=== PATIENT | female | born 1935 | race Caucasian/White ===

== ENCOUNTER → 2016-10-12 | Day surgery (SDC) | payer MEDICARE ==
--- NOTE | 2016-10-11 13:58 | CR ---
PREOPERATIVE EVALUATION AND CONSULTATION DATE OF CONSULTATION: 10/05/2016 CONSULTING PHYSICIAN: Dr. Bjorn Castillo SURGEON: Dr. Mary of ophthalmology PLANNED PROCEDURE: Right cataract extraction. CARDIOLOGY EVALUATION: 08/04/[address] Lyles. HISTORY OF PRESENT ILLNESS: A very pleasant 80-year-old patient of mine presents today for followup of multiple medical issues. It is notable the patient did have a pacer for a near syncopal episode previously, but she has generally been doing well since then. This was felt to be vasovagal. She otherwise feels well. Has had no recent issues. Again, did see Dr. Lyles on 08/04/2016 and was told she would be cleared for surgery. She is seeing Hemalatha Ensign for a lesion on her forehead but otherwise does well on her Lipitor. Has not needed her meclizine recently. Has been on Prozac for years and feels it does help with her mood. Was treated with a bisphosphonate for osteoporosis. In general, feels quite well without any new issues or concerns and no other cardiac concerns, pulmonary concerns, risk of obstructive sleep apnea (IVANA), or any issues with anesthesia in the past. PAST MEDICAL HISTORY: Hyperlipidemia. History of constipation. Dysthymia. History of osteoporosis. Osteoarthritis. Gastroesophageal reflux disease (GERD). Benign positional vertigo. Sick sinus syndrome, now with pacer. Neoplasm of large intestine (the patient with prior colectomy) PAST SURGICAL HISTORY: Cataract extraction on the left side by Dr. Mary in September 2012. Tonsils and adenoids removed at age 3. Bilateral tubal ligation. Dilation and curettage (D and C) times three. Breast biopsy, negative. Cholecystectomy. Pacemaker insertion times two March 2013 (entire pacer was changed in her right upper chest). Appendectomy. MEDICATIONS: - Lipitor 10 mg three days a week (unable to tolerate a higher dose) - meclizine 25 mg twice a day as needed dizziness - clobetasol 0.05% twice a day to affected area to avoid atrophy - vitamin D 1000 international units daily - magnesium 500 daily - Align probiotic - Prozac 10 mg daily - atenolol 25 mg 1/2 tablet daily ALLERGIES: ERYTHROMYCIN causes nausea. DEMEROL caused hallucinations. SOCIAL HISTORY: The patient lives with her , Pradeep. 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 She previously had smoked two packs a day for 41 years, quitting in 1992. FAMILY HISTORY: Father of a stroke. Mother of natural causes at age 103 and congestive heart failure (CHF). REVIEW OF SYSTEMS: As per history of present illness (HPI). Otherwise, ten system review is negative. PHYSICAL EXAMINATION: VITAL SIGNS: Initial blood pressure is 152/80, on recheck it was 135/75, pulse of 70, respiratory rate of 18. She is 5 feet 4 inches tall, weight of 141 pounds, body mass index (BMI) of 24. In general, no acute distress. Nontoxic. Alert and oriented times three. Is very pleasant. HEENT: Is grossly within normal limits. Face is symmetric. Oral cavity and oropharynx are benign. Tympanic membranes were evaluated, benign on the right; the left, however, does appear to have old scarring and a patch but no other abnormalities. NECK: Is supple. No lymphadenopathy or thyromegaly. HEART: Regular rate and rhythm. S1, S2. She does have a pacemaker in her right upper chest, left nontender. LUNGS: Clear to auscultation bilaterally. ABDOMEN: Is soft, nontender, nondistended. No organomegaly. EXTREMITIES: No clubbing, cyanosis, or edema. LABORATORIES: On 07/23/2016 were reviewed. Slight anemia. ASSESSMENT AND PLAN: 1. Preoperative evaluation and consultation. At this point in time, this is a relatively low-risk procedure. The patient is doing well overall without any cardiac issues with the exception of a pacer, which appears to be functioning well. She does have a smoking history regarding her respiratory condition but does not appear to have outward symptoms as such. She denies any symptoms of IVANA or issues with anesthesia in the past. We expect she will do quite well and will also forward Dr. Lyles's note from 08/04/2016. 2. Cataract. The patient looks forward to having the right cataract removed. She had good results of the left. 3. Hypercholesterolemia. Doing as well as possible with Lipitor three times a week. Will continue on that. 4. Essential hypertension. The patient's blood pressure improved on a recheck. Will continue to monitor. 5. Type 2 diabetes. Good diet control. Will monitor. 6. Anxiety. Doing well with Prozac alone without any new issues or concerns. Will monitor. 7. Presence of a pacemaker. Doing quite well. Following with Dr. Lyles. 8. Vitamin D deficiency. Doing well on present dose of supplement. 9. Benign positional vertigo. Stable without any medication at this point in time. Does use meclizine as needed. ONGOING CARE: I am going to see her again as scheduled. If she has new problems or issues prior to her visit, she will let us know. ASHKAN
[~2016-10-12] VITALS: Ht 162.6 cm; Wt 63.5 kg
[~2016-10-12] MED LIST: ACETAMINOPHEN 325 MG TAB PO PRN; ATEN25TA OR; ATEN25TA PO; AcetaZOLAMIDE 500 MG ER CAP PO ONE; BSS with VANC/TOB/EPI for EYE CASES IR ONE; CYCLOPENTOLATE 2% OPHTH SOLN OD ONE; FLUO10TA30 PO; HEALON DUET (HEALON 10MG/ML 0.55ML & HEALON ENDOCOAT 30MG/ML 0.85ML) As Ordered ONE; KETOROLAC 0.5% OPHTH SOLN OD ONE; LIDOCAINE 1% SDV 5 ML VIAL As Ordered ONE; LIDOCAINE 4% INJ 5 ML AMP As Ordered ONE; LIDOCAINE 4% INJ 5 ML AMP OU ONE; LIDOCAINE W/EPINEPHRINE 1% 20ML VIAL XX ONE; LISI2.5T3 PO; MAGN250T2 PO; MAGNESIUM PO; MIDAZOLAM INJ 2 MG/2 ML VIAL (J2250) As Ordered ONE; MOXIFLOXACIN IN BSS 0.25MG/0.25ML INTRACAMERAL INJ (OR EYE ONLY)(J2280) As Ordered ONE; MOXIFLOXACIN IN BSS 0.25MG/0.25ML INTRACAMERAL INJ (OR EYE ONLY)(J2280) ICAM SCH; OFLOXACIN 0.3 % (OCUFLOX) OPTH SOL 5ML OD ONE; PHENYLEPHRINE 2.5% OPHTH SOL 2ML OD ONE; POVIDONE-IODINE 5% OPHTH PREP SOL 30ML As Ordered ONE; PREDOPD OD; PROPARACAINE 0.5% OPHTH SOL 15ML OD PRN; PROZ10CA OR; SIMV20TA2 OR; TRIAMCINOLONE PRES FR 40 MG/ML 1ML(TRIESENCE)(OR EYE ONLY)(J3300 PER 1MG) As Ordered ONE; TRIAMCINOLONE PRES FR 40 MG/ML 1ML(TRIESENCE)(OR EYE ONLY)(J3300 PER 1MG) IO ONE; TRIMETHOBENZAMIDE 300 MG CAP PO PRN; TROPICAMIDE 1% OPHTH SOLN 2 ML OD ONE; VIT D3 PO; VITA100066 PO; VITMTA PO; fentaNYL 100 MCG/2 ML INJECTION (J3010) As Ordered ONE
== END | disposition home or self-care (01) ==
LOC: M SDC 06:18
PROVIDERS: ATTEND Ophthalmology
DX: H26.9 Unspecified cataract (principal); I10 Essential (primary) hypertension; E78.5 Hyperlipidemia, unspecified; F34.1 Dysthymic disorder; M15.0 Primary generalized (osteo)arthritis; M81.0 Age-related osteoporosis without current pathological fracture; K21.9 Gastro-esophageal reflux disease without esophagitis; H81.10 Benign paroxysmal vertigo, unspecified ear; I49.5 Sick sinus syndrome; E16.2 Hypoglycemia, unspecified; E78.00 Pure hypercholesterolemia, unspecified; E11.9 Type 2 diabetes mellitus without complications; F41.9 Anxiety disorder, unspecified; E55.9 Vitamin D deficiency, unspecified; Z88.1 Allergy status to other antibiotic agents; Z88.5 Allergy status to narcotic agent; Z91.018 Allergy to other foods; Z79.899 Other long term (current) drug therapy; Z85.038 Personal history of other malignant neoplasm of large intestine; Z98.51 Tubal ligation status; Z95.0 Presence of cardiac pacemaker
CPT/HCPCS: 66984; J2250; J2280; J3010; J3300; V2632

== ENCOUNTER 2016-10-13 10:38 | Observation (INO) | payer MEDICARE ==
[~2016-10-13] VITALS: Ht 162.6 cm; Wt 63.5 kg
[~2016-10-13 10:38] MED LIST changes: -ACETAMINOPHEN 325 MG TAB PO PRN; -ATEN25TA PO; -AcetaZOLAMIDE 500 MG ER CAP PO ONE; -BSS with VANC/TOB/EPI for EYE CASES IR ONE; -CYCLOPENTOLATE 2% OPHTH SOLN OD ONE; -FLUO10TA30 PO; -HEALON DUET (HEALON 10MG/ML 0.55ML & HEALON ENDOCOAT 30MG/ML 0.85ML) As Ordered ONE; -KETOROLAC 0.5% OPHTH SOLN OD ONE; -LIDOCAINE 1% SDV 5 ML VIAL As Ordered ONE; -LIDOCAINE 4% INJ 5 ML AMP As Ordered ONE; -LIDOCAINE 4% INJ 5 ML AMP OU ONE; -LIDOCAINE W/EPINEPHRINE 1% 20ML VIAL XX ONE; -LISI2.5T3 PO; -MAGN250T2 PO; -MIDAZOLAM INJ 2 MG/2 ML VIAL (J2250) As Ordered ONE; -MOXIFLOXACIN IN BSS 0.25MG/0.25ML INTRACAMERAL INJ (OR EYE ONLY)(J2280) As Ordered ONE; -MOXIFLOXACIN IN BSS 0.25MG/0.25ML INTRACAMERAL INJ (OR EYE ONLY)(J2280) ICAM SCH; -OFLOXACIN 0.3 % (OCUFLOX) OPTH SOL 5ML OD ONE; -PHENYLEPHRINE 2.5% OPHTH SOL 2ML OD ONE; -POVIDONE-IODINE 5% OPHTH PREP SOL 30ML As Ordered ONE; -PREDOPD OD; -PROPARACAINE 0.5% OPHTH SOL 15ML OD PRN; -TRIAMCINOLONE PRES FR 40 MG/ML 1ML(TRIESENCE)(OR EYE ONLY)(J3300 PER 1MG) As Ordered ONE; -TRIAMCINOLONE PRES FR 40 MG/ML 1ML(TRIESENCE)(OR EYE ONLY)(J3300 PER 1MG) IO ONE; -TRIMETHOBENZAMIDE 300 MG CAP PO PRN; -TROPICAMIDE 1% OPHTH SOLN 2 ML OD ONE; -VITA100066 PO; -VITMTA PO; -fentaNYL 100 MCG/2 ML INJECTION (J3010) As Ordered ONE
[2016-10-13 11:35] LABS: BASO % 0.3 % (0.0-1.0); EOS # 0.2 K/mm3 (0.0-0.50); EOS % 1.9 % (0.0-3.0); LARGE UNSTAINED CELL # 0.1 K/mm3 (0.0-0.4); LARGE UNSTAINED CELL % 1.3 % (0.0-4.0); LYMPH # 1.4 K/mm3 (1.5-4.5); LYMPH % 16.3 % (24.0-44.0); MEAN CORPUSCULAR HEMOGLOBIN 29.4 pg (27.0-33.0); MEAN CORPUSCULAR HGB CONC 31.3 g/dl (32.0-36.5); MEAN CORPUSCULAR VOLUME 93.7 fl (80.0-96.0); MONO # 0.4 K/mm3 (0.0-0.8); MONO % 4.8 % (0.0-5.0); NEUTROPHILS # 6.6 K/mm3 (1.8-7.7); NEUTROPHILS % 75.5 % (36.0-66.0); PLATELET COUNT, AUTOMATED 254 k/mm3 (150-450); RED CELL DISTRIBUTION WIDTH 12.6 % (11.5-14.5); WHITE BLOOD COUNT 8.8 K/mm3 (4.0-10.0)
[2016-10-13 11:59] LABS: ANION GAP 7 MEQ/L (8-16); BLOOD UREA NITROGEN 18 MG/DL (7-18); CALCIUM LEVEL 8.8 MG/DL (8.8-10.2); CARBON DIOXIDE LEVEL 25 MEQ/L (21-32); CHLORIDE LEVEL 112 MEQ/L (98-107); CREATININE FOR GFR 1.13 MG/DL (0.55-1.02); GLOMERULAR FILTRATION RATE 49.3 (>32); GLUCOSE, FASTING 138 MG/DL (83-110); POTASSIUM SERUM 4.5 MEQ/L (3.5-5.1); SODIUM LEVEL 144 MEQ/L (136-145)
--- NOTE | 2016-10-13 12:26 | REP ---
Chest two views HISTORY: Syncope Comparison: 07/23/2016 A calcified granuloma is present in the left upper lobe. The right lung is clear. The heart is normal in size. The pulmonary vasculature is normal in appearance. The bony structure is intact. IMPRESSION: Old granulomatous disease. Signed by Modesto May MD 10/13/2016 12:17 P
[2016-10-13] MEDS ORDERED: MAGN250T2 PO (13:13)
[2016-10-13] MEDS ORDERED: PREDOPD OD (13:13)
[2016-10-13] MEDS ORDERED: VITA100066 PO (13:13)
[2016-10-13] MEDS ORDERED: ATEN25TA PO (13:13)
[2016-10-13] MEDS ORDERED: FLUO10TA30 PO (13:13)
[2016-10-13] MEDS ORDERED: VITMTA PO (13:13)
[2016-10-13] MEDS ORDERED: NS 1,000 ML IV SCH (13:42)
[2016-10-13] MEDS ORDERED: ONDANSETRON 4MG/2ML VIAL (J2405) IV PRN (13:45)
[2016-10-13] MEDS ORDERED: ACETAMINOPHEN TAB 650MG DOSE (2X325MG) PO PRN (13:45)
--- NOTE | 2016-10-13 13:59 | HPEPDOC ---
Medical History and Physical Date of Admission 10/13/16 History and Physical PRIMARY CARE PROVIDER: ATTENDING: Mekhi Flower MD CHIEF COMPLAINT: Passed out HISTORY OF PRESENT ILLNESS: Is a 80-year-old female past history of sick sinus syndrome status post PPM, she presses, hyperlipidemia, benign positional vertigo, GERD, osteoporosis, history of colon cancer status post colectomy who presents complaining of syncopal episodes. Patient had cataract surgery yesterday and went to her chain maker loom control today for follow-up. She was standing upon which she started having symptoms of lightheadedness and she went down. Patient had a presyncopal episode while sitting down. EMS was called and upon standing the patient, the patient had a syncopal episode. No head trauma. No urinary or fecal condoms. No seizure activity. No tongue trauma. Patient denies any chest pain/redness of breath/palpitations prior or after this episode. Patient states she walks 2 miles daily with no symptoms of dyspnea on exertion or chest pain. Patient follows with Dr. Lyles in the clinic. ED physician had spoken to Dr. Laws who will arrange for interrogation of her seen Donal pacemaker. PAST MEDICAL HISTORY:As per HPI PAST SURGICAL HISTORY: Cataract surgery, tonsillectomy, tubal ligation, breast biopsy, cholecystectomy, PPM, appendectomy SOCIAL HISTORY: History of 2 packs per day 40 years tobacco abuse, quit 1992. Occasional alcohol. No illicit drug use. Retired. FAMILY HISTORY: Father with CVA ALLERGIES: Please see below. REVIEW OF SYSTEMS: HEENT: Denies sore throat/headache CARDIOVASCULAR: Denies chest pain/palpitations RESPIRATORY: No shortness of breath/cough GASTROINTESTINAL: denies nausea/vomiting GENITOURINARY: Denies dysuria/urinary urgency. MUSCULOSKELETAL: Denies myalgias/arthralgias NEUROLOGICAL: Denies any focal weakness Rest of ROS negative. HOME MEDICATIONS: Please see below. PHYSICAL EXAMINATION: Vitals: (see below) General: No acute distress, laying comfortably in bed. HEENT: Moist mucous membranes. Neck: No JVD or lymphadenopathy Cardiac: RRR, No murmurs. Left PPM with no tenderness or redness. Pulm: Clear to auscultation b/l. No wheezing, rhonchi Abd: NT/ND + BS Ext: No edema or cyanosis Neuro: Strength 5/5 BUE and BLE. CN 2-12 intact. F to N intact Negative pronator drift. LABORATORY DATA: See below. IMAGING: CXR 10/13/[address] head pending. MICROBIOLOGY: Please see below. ASSESSMENT/PLAN: Syncope- symptoms consistent with orthostatic hypotension however patient's states with lightheaded upon standing to check vitals at this time. We'll continue with rehydrating patient. Patient states she's had a good appetite. Does not feel dehydrated however she does have dry mucous membranes. We'll hold atenolol. Trend cardiac enzymes. EKG with atrial paced rhythm and nonspecific repolarization abnormality. We'll also obtain echocardiogram. Dr. Laws was called by the ED physician, and he will arrange for interrogation of the [employer] pacemaker. We'll check orthostatics later in the day when patient's rehydrated. GERD- has not required a PPI at home Osteoporosis- patient states she's unaware of this however this is in her medical records. Will need outpatient follow-up. History of colon cancer status post colectomy Recent cataract surgery- we will continue the patient's prednisone drops that were ordered by her chain maker loom control today. We'll also get an eye patch on her right eye. DVT prophylaxis- SCDs. Patient was followed by Dr. Flores starting 10/14/16 at 7 AM. Vital Signs Blood pressure 121/60, heart rate 60, respiratory rate of 16, afebrile, oxygen saturation 96% on room air Laboratory Data Labs 24H Laboratory Tests 2 10/13/16 11:25: Anion Gap 7L, White Blood Count 8.8, Red Blood Count 4.20, Hemoglobin 12.4, Hematocrit 39.4, Mean Corpuscular Volume 93.7, Mean Corpuscular Hemoglobin 29.4 , Mean Corpuscular Hemoglobin Concent 31.3L, Red Cell Distribution Width 12.6, Platelet Count 254, Neutrophils (%) (Auto) 75.5H, Lymphocytes (%) (Auto) 16.3L, Monocytes (%) (Auto) 4.8, Eosinophils (%) (Auto) 1.9, Basophils (%) (Auto) 0.3, Neutrophils # (Auto) 6.6, Lymphocytes # (Auto) 1.4L, Monocytes # (Auto) 0.4, Eosinophils # (Auto) 0.2, Basophils # (Auto) 0.0, Blood Urea Nitrogen 18, Creatinine 1.13H, Sodium Level 144, Potassium Level 4.5, Chloride Level 112H, Carbon Dioxide Level 25, Calcium Level 8.8, Total Creatine Kinase 65, Creatine Kinase MB 1.7, Creatine Kinase MB Relative Index 2.61, Glomerular Filtration Rate 49.3, Large Unclassified Cells # 0.1, Large Unclassified Cells % 1.3, Troponin I < 0.02 CBC/BMP Laboratory Tests 10/13/16 11:25 Calcium Level 8.8, Total Creatine Kinase 65, Red Blood Count 4.20, Mean Corpuscular Volume 93.7, Mean Corpuscular Hemoglobin 29.4, Mean Corpuscular Hemoglobin Concent 31.3 L, Red Cell Distribution Width 12.6, Neutrophils (%) ( Auto) 75.5 H, Lymphocytes (%) (Auto) 16.3 L, Monocytes (%) (Auto) 4.8, Eosinophils (%) (Auto) 1.9, Basophils (%) (Auto) 0.3, Neutrophils # (Auto) 6.6, Lymphocytes # (Auto) 1.4 L, Monocytes # (Auto) 0.4, Eosinophils # (Auto) 0.2, Basophils # (Auto) 0.0 Home Medications Scheduled (Fluoxetine HCl) 10 Mg Tab 10 MG PO DAILY Atenolol (Atenolol) 25 Mg Tab 12.5 MG PO DAILY Cholecalciferol (Vitamin D) 1,000 Unit Tab 1,000 UNIT PO DAILY Magnesium (Magnesium) 250 Mg Tab 250 MG PO DAILY Multivitamins *[facility] STOCKED* (Thera M Plus *[facility] STOCK[facility]*) 1 Tab Tab 1 TAB PO DAILY Prednisolone Acetate (Prednisolone Acetate 1% Opth Susp) 100 Drop/5 Ml Susp 1 DROP OD QID NEW MED FROM EYE APPT - HAS NOT STARTED Allergies Coded Allergies: Mushroom (Verified Allergy, Intermediate, PASSES OUT, 09/19/13) Meperidine (Verified Adverse Reaction, Intermediate, FLOATING FEELING, DELUSIONS, 12/06/12) Erythromycin (Verified Adverse Reaction, Mild, NAUSEA, 10/11/16) MEKHI FLOWER MD Oct 13, 2016 13:59
--- NOTE | 2016-10-13 14:40 | REP ---
CT HEAD WITHOUT CONTRAST: HISTORY: Loss of consciousness. COMPARISON: 07/23/2016. Areas of decreased attentuation are present in the periventricular white matter. This represents small vessel ischemic disease. There is no intraparenchymal hemorrhage, mass, or midline shift. The ventricular system and cortical sulci are dilated consistent with mild volume loss. There is no extracerebral collection. There is no fracture. The visualized sinuses are clear. IMPRESSION: 1. Small vessel ischemic disease. 2. Mild volume loss. Signed by Modesto May MD 10/13/2016 02:48 P
[2016-10-13 16:00] VITALS: BP 177/75
[2016-10-13] MEDS ORDERED: PANTOPRAZOLE 40MG TAB (PROTONIX) As Ordered ONE (18:12)
[2016-10-13] MEDS: prednisoLONE ACET 1% OPHTH SUSP 5ML OD SCH ×2 (18:14→20:08)
[2016-10-13] MEDS: PANTOPRAZOLE 40MG TAB (PROTONIX) PO SCH (18:14)
[2016-10-13 20:00] VITALS: BP_SYST 169; BP_SYST 178; BP_SYST 187; BP_SYST 189; BP_DIAS 73; BP_DIAS 77; BP_DIAS 78; BP_DIAS 79
--- NOTE | 2016-10-13 21:53 | ECGEPIP ---
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
--- NOTE | 2016-10-13 23:42 | EDDOCDS ---
Nurse's Notes [facility] Name: Мария Maki Age: 80 yrs Sex: Female : 1935 Arrival Date: 10/13/2016 Time: 10:38 Bed Admit Hold Private MD: Bjorn Castillo M.D. Diagnosis: Syncope and collapse Presentation: 10/13 10:40 Presenting complaint: Patient states: Per EMS history of syncopal events. + pacer. jmk experienced near syncope today while sitting. LOC upon standing. Without seizure activity. FS 110 en route. denies chest pain or SOB. + diaphoresis. Adult Sepsis Screening: The patient does not have new or worsening altered mentation. Patient's respiratory rate is less than 22. Systolic blood pressure is greater than 100. Patient has a qSOFA score of 0- Negative Sepsis Screen. Suicide/Homicide risk assessment- the patient denies having any suicidal and/or homicidal ideations and does not present with any other emotional, behavioral or mental health complaints. Status: Patient is not a insurance customer service specialist or dependent. Transition of care: patient was not received from another setting of care. 10:40 Acuity: SRAVANTHI Level 3 [facility] 10:40 Method Of Arrival: Ambulance [facility] Triage Assessment: 10:47 General: Appears in no apparent distress. Pain: Denies pain. [facility] Historical: - Allergies: Demerol (confusion); Erythromycin (Vomit); - Home Meds: 1. atenolol 12.5 mg Oral once daily (Last dose: 10/13/2016 08:30) 2. fluoxetine 10 mg Oral cap once daily (Last dose: 10/13/2016 08:30) - PMHx: Anxiety; Cancer, Colon; Hypertension; - PSHx: Pacemaker Insertion; Cholecystectomy; Appendectomy; Tonsillectomy; breast biopsy; Cataract Surgery- Right; - Social history: Smoking status: Patient states was never smoker of tobacco. No barriers to communication noted, The patient speaks fluent Kiswahili. - Family history: No immediate family members are acutely ill. - : The pt / caregiver states he / she is not on anticoagulants. Home medication list is obtained from the patient. - Exposure Risk Screening:: None identified. Screenin:52 Screening information is obtained from the patient. Fall risk: No risks identified. mb9 Assistance ADL's: requires no assistance with activities of daily living. Abuse/DV Screen: The patient / caregiver reports he/she is: not in a situation that causes fear, pain or injury. Nutritional screening: No deficits noted. Advance Directives: There is no active DNR order. home support is adequate. Assessment: 11:02 General: Appears in no apparent distress, Behavior is cooperative. Pain: Denies pain. mcp Neurological: Level of Consciousness is awake, alert, Oriented to person, place, time, Moves all extremities. Speech is normal, Pupils are right eye does not react--just had cataract surgery yesterday. left eye reactive. Cardiovascular: Rhythm is sinus rhythm. Respiratory: Airway is patent Respiratory effort is even, unlabored, Breath sounds are clear bilaterally. Derm: Skin is pink, warm & dry. 11:28 General: Appears in no apparent distress, Behavior is cooperative. Pain: Denies pain. mb9 Neurological: Level of Consciousness is awake, alert, Oriented to person, place, time, Speech is normal, Facial symmetry appears normal, Pupils are pt's right eye does not react. pt reports cataract surgery yesterday. Cardiovascular: Rhythm is sinus rhythm. Respiratory: Airway is patent Breath sounds are clear bilaterally. 12:06 General: Dr Cooney notified that pt was requesting her prednisolone eye drops be mb9 ordered here in the ER. Dr Cooney states, "She's being admitted the hospitalist can order that". pt made aware. . 12:41 Reassessment: Patient appears in no apparent distress at this time. Patient states mb9 feeling better. Adult Sepsis Screening: The patient does not have new or worsening altered mentation. Patient's respiratory rate is less than 22. Systolic blood pressure is greater than 100. Patient has a qSOFA score of 0- Negative Sepsis Screen. General: Appears in no apparent distress, Behavior is fussy. Pain: Denies pain. Respiratory: Airway is patent Respiratory effort is even, unlabored. 13:00 General: Dr Hidalgoed in to see pt at this time. . mb9 13:25 Reassessment: Patient appears in no apparent distress at this time. General: Appears mb9 comfortable, Behavior is appropriate for age, cooperative. Pain: Denies pain. Respiratory: Airway is patent Respiratory effort is even, unlabored. 14:36 Reassessment: Patient appears in no apparent distress at this time. General: Appears in mb9 no apparent distress, comfortable, Behavior is fussy. Pain: Denies pain. Respiratory: Airway is patent Respiratory effort is even, unlabored. 15:23 Reassessment: Patient appears in no apparent distress at this time. General: Appears mb9 comfortable, Behavior is appropriate for age, cooperative. Respiratory: Airway is patent Respiratory effort is even, unlabored. 16:00 General: Report taken from Laci Deluna RN. All further charting will be in [facility].. aa3 23:40 General: Appears in no apparent distress. Neurological: Level of Consciousness is mgs awake, alert, Oriented to person, place, time. Cardiovascular: Capillary refill < 3 seconds. Respiratory: Airway is patent Respiratory effort is even, unlabored. Derm: Skin is pink, warm & dry. Vital Signs: 10:48 Pulse 60; Resp 16; Pulse Ox 96% on R/A; Weight 63.5 kg; Height 5 ft. 4 in. (162.56 cm); jmk 10:49 BP 121 / 60; jmk 11:03 Temp 97.0(O); rs6 12:44 Pulse 60 MON; Pulse Ox 97% ; mb9 12:45 BP 150 / 67 (auto/); mb9 13:15 Pulse 66 MON; Pulse Ox 96% ; mb9 13:15 BP 170 / 73 (auto/); mb9 14:26 Pulse 62 MON; Pulse Ox 96% ; mb9 14:26 BP 169 / 74 (auto/); mb9 14:45 Pulse 62 MON; Pulse Ox 98% ; mb9 14:45 BP 166 / 72 (auto/); mb9 15:15 Pulse 62 MON; Pulse Ox 98% ; mb9 15:15 BP 171 / 72 (auto/); mb9 15:45 Pulse 62 MON; Pulse Ox 95% ; mb9 15:45 BP 177 / 76 (auto/); Pulse 62; Resp 17; Temp 98.2(TE); Pulse Ox 95% on R/A; mb9 10:48 Body Mass Index 24.03 (63.50 kg, 162.56 cm) [facility] Vitals: 10:48 Log In Time N/A - ambulance arrival. [facility] ED Course: 10:39 Patient visited by Yazmin Barry, Repairer Wood Furniture. lbd 10:39 Bjorn Castillo is Private Physician. lbd 10:39 Patient moved to Waiting lbd 10:39 Patient moved to 4 lbd 10:45 Triage Initiated jmk 10:50 Pt greeted and oriented to ED. Patient advised of names of staff involved in care, rs6 location of call basilio, wait times and NPO status. Accompanied by Significant Other, Patient has correct armband on for positive identification. Placed in gown. Bed in low position. Call light in reach. Side rails up X 1. ekg monitor tech on. Pulse ox on. NIBP on. 10:50 EKG done. (by ED staff). Reviewed by Va oConey MD. rs6 10:51 Patient visited by Coreen Ramírez PCA. rs6 11:04 Patient visited by Humera Berrios RN. mcp 11:04 The patient / caregiver is instructed regarding the plan of care and ED course. mcp 11:04 Maintain field IV. Dressing intact. Good blood return noted. Site clean & dry. mcp 11:08 PT had large solid bowel movement in bed mirza. Initially pt was attempting to get up to rs6 bedside commode but became dizzy and stated that she "felt like I am going to faint again, I need to lay back down." PT was placed back in bed and a bedpan was provided. . Assisted with bedpan. 11:10 Patient visited by Coreen Ramírez PCA. rs6 11:20 Va Cooney MD is Attending Physician. br1 11:28 Basic Metabolic Profile Sent. mb9 11:28 CBC with Diff Sent. mb9 11:28 Cardiac Injury Profile Sent. mb9 11:28 Troponin Sent. mb9 11:29 Patient visited by Va Cooney MD. br1 12:41 Patient visited by Va Cooney MD. br1 12:42 Mekhi Leiva is Hospitalizing Provider. br1 12:58 Chest, 2 View (pa\\E\\lat) Returned. EDMS 13:30 Patient visited by Coreen Ramírez PCA. rs6 13:30 Diet: Patient given regular meal. Tolerated well. rs6 13:35 [place] was scanned into [employer] and attached to record. lg 14:15 Patient visited by Coreen Ramírez PCA. rs6 14:17 Patient moved to Admit Hold kpj 15:33 CT Head without contrast Returned. EDMS 15:52 No procedures done that require assistance. mb9 17:16 Patient moved to 20 kp 17:16 Patient moved to Admit Hold [facility] 22:11 EKG-ADULT Returned. EDMS Administered Medications: 11:46 Drug: NS 0.9% 1000 ml [sodium chloride 0.9 % intravenous solution] Route: IV; Rate: 150 mb9 mL/hr; Site: left antecubital; 16:32 Drug: prednisoLONE 1 drps [prednisolone acetate 1 % eye drops,suspension (1 drps)] mb9 Route: Ophthalmic; Site: right eye; Order Results: Lab Order: Basic Metabolic Profile; [facility] 10/13/16 11:25 Test: GLUCOSE, FASTING; Value: 138; Range: 83-110; Abnormal: Above high normal; Units: MG/DL; Status: F Test: BLOOD UREA NITROGEN; Value: 18; Range: 7-18; Units: MG/DL; Status: F Test: CREATININE FOR GFR; Value: 1.13; Range: 0.55-1.02; Abnormal: Above high normal; Units: MG/DL; Status: F Test: GLOMERULAR FILTRATION RATE; Value: 49.3; Range: >32; Status: F Test: SODIUM LEVEL; Value: 144; Range: 136-145; Units: MEQ/L; Status: F Test: POTASSIUM SERUM; Value: 4.5; Range: 3.5-5.1; Units: MEQ/L; Status: F Test: CHLORIDE LEVEL; Value: 112; Range: 98-107; Abnormal: Above high normal; Units: MEQ/L; Status: F Test: CARBON DIOXIDE LEVEL; Value: 25; Range: 21-32; Units: MEQ/L; Status: F Test: ANION GAP; Value: 7; Range: 8-16; Abnormal: Below low normal; Units: MEQ/L; Status: F Test: CALCIUM LEVEL; Value: 8.8; Range: 8.8-10.2; Units: MG/DL; Status: F Test Note: ; Units are mL/min/1.73 m2 Chronic Kidney Disease Staging per NKF: Stage I & II GFR >=60 Normal to Mildly Decreased Stage III GFR 30-59 Moderately Decreased Stage IV GFR 15-29 Severely Decreased Stage V GFR <15 Very Little GFR Left ESRD GFR <15 on REPORTING PROCESS CONSULTANT Lab Order: CBC with Diff; [facility] 10/13/16 11:25 Test: WHITE BLOOD COUNT; Value: 8.8; Range: 4.0-10.0; Units: K/mm3; Status: F Test: RED BLOOD COUNT; Value: 4.20; Range: 4.00-5.40; Units: M/mm3; Status: F Test: HEMOGLOBIN; Value: 12.4; Range: 12.0-16.0; Units: g/dl; Status: F Test: HEMATOCRIT; Value: 39.4; Range: 36.0-47.0; Units: %; Status: F Test: MEAN CORPUSCULAR VOLUME; Value: 93.7; Range: 80.0-96.0; Units: fl; Status: F Test: MEAN CORPUSCULAR HEMOGLOBIN; Value: 29.4; Range: 27.0-33.0; Units: pg; Status: F Test: MEAN CORPUSCULAR HGB CONC; Value: 31.3; Range: 32.0-36.5; Abnormal: Below low normal; Units: g/dl; Status: F Test: RED CELL DISTRIBUTION WIDTH; Value: 12.6; Range: 11.5-14.5; Units: %; Status: F Test: PLATELET COUNT, AUTOMATED; Value: 254; Range: 150-450; Units: k/mm3; Status: F Test: NEUTROPHILS %; Value: 75.5; Range: 36.0-66.0; Abnormal: Above high normal; Units: %; Status: F Test: LYMPH %; Value: 16.3; Range: 24.0-44.0; Abnormal: Below low normal; Units: %; Status: F Test: MONO %; Value: 4.8; Range: 0.0-5.0; Units: %; Status: F Test: EOS %; Value: 1.9; Range: 0.0-3.0; Units: %; Status: F Test: BASO %; Value: 0.3; Range: 0.0-1.0; Units: %; Status: F Test: LARGE UNSTAINED CELL %; Value: 1.3; Range: 0.0-4.0; Units: %; Status: F Test: NEUTROPHILS #; Value: 6.6; Range: 1.8-7.7; Units: K/mm3; Status: F Test: LYMPH #; Value: 1.4; Range: 1.5-4.5; Abnormal: Below low normal; Units: K/mm3; Status: F Test: MONO #; Value: 0.4; Range: 0.0-0.8; Units: K/mm3; Status: F Test: EOS #; Value: 0.2; Range: 0.0-0.50; Units: K/mm3; Status: F Test: BASO #; Value: 0.0; Range: 0.0-0.2; Units: K/mm3; Status: F Test: LARGE UNSTAINED CELL #; Value: 0.1; Range: 0.0-0.4; Units: K/mm3; Status: F Lab Order: Cardiac Injury Profile; [facility] 10/13/16 11:25 Test: CPK CREATINE PHOSPHOKINASE; Value: 65; Range: 26-192; Units: U/L; Status: F Test: CK-MB VALUE MASS; Value: 1.7; Range: 0.0-3.6; Units: NG/ML; Status: F Test: MB/CK RELATIVE INDEX; Value: 2.61; Range: < OR =4; Status: F Test Note: ; DIAGNOSIS CRITERIA MMB ng/ml Relative Index (RI) NON-AMI < or = 5 N/A LANG ZONE > 5 < or = 4 AMI > 5 > 4 Lab Order: Troponin; [facility] 10/13/16 11:25 Test: TROPONIN I; Value: < 0.02; Range: < 0.10; Units: NG/ML; Status: F Test Note: ; Troponin I Reference Interval for [employer] LOCI: 99th Percentile= 0.00-0.045 ng/ml Risk Stratification: <= 0.10 ng/ml Decreased Risk for Adverse Clinical Events. 0.10-1.50 ng/ml Increased Risk for Adverse Clinical Events. Evaluation of additional criterion and/or repeat testing in 2-6 hours is suggested to rule out myocardial damage. >= 1.50 ng/ml Indicative of Myocardial Injury. Lab Order: CARDIAC INJURY PROFILE; [facility] 10/13/16 18:49 Test: CPK CREATINE PHOSPHOKINASE; Value: 58; Range: 26-192; Units: U/L; Status: F Test: CK-MB VALUE MASS; Value: 1.9; Range: 0.0-3.6; Units: NG/ML; Status: F Test: MB/CK RELATIVE INDEX; Value: 3.27; Range: < OR =4; Status: F Test Note: ; DIAGNOSIS CRITERIA MMB ng/ml Relative Index (RI) NON-AMI < or = 5 N/A LANG ZONE > 5 < or = 4 AMI > 5 > 4 Lab Order: TROPONIN; [facility] 10/13/16 18:49 Test: TROPONIN I; Value: < 0.02; Range: < 0.10; Units: NG/ML; Status: F Test Note: ; Troponin I Reference Interval for [employer] LOCI: 99th Percentile= 0.00-0.045 ng/ml Risk Stratification: <= 0.10 ng/ml Decreased Risk for Adverse Clinical Events. 0.10-1.50 ng/ml Increased Risk for Adverse Clinical Events. Evaluation of additional criterion and/or repeat testing in 2-6 hours is suggested to rule out myocardial damage. >= 1.50 ng/ml Indicative of Myocardial Injury. 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 Systems Consultant: rn; : 1935 Requested By: VA Hercules; Order Number: [id number] Reading MD: Inessa Hernandez; Measurements; Intervals Arnold; Rate: 60 P: 199; SD: 204 QRS: 62; QRSD: 82 T: 80; QT: 411; QTc: 411; Interpretive Statements; ELECTRONIC ATRIAL PACEMAKER; ABNORMAL RHYTHM ECG; NSTTW ABNORMALITY; ; Electronically Signed On 10-13-2016 21:53:29 EST by Inessa Hernandez; Radiology Order: Chest, 2 View (pa\\E\\lat) Test: Chest, 2 View (pa\\E\\lat) REASON FOR EXAMINATION: Syncope; Chest two views; ; HISTORY: Syncope; ; Comparison: 07/23/2016; ; A calcified granuloma is present in the left upper lobe. The right lung is; clear. The heart is normal in size. The pulmonary vasculature is normal in; appearance. The bony structure is intact.; ; IMPRESSION: Old granulomatous disease.; ; ; Signed by; Modesto May MD 10/13/2016 12:17 P; Radiology Order: CT Head without contrast Test: CT Head without contrast REASON FOR EXAMINATION: LOC; CT HEAD WITHOUT CONTRAST:; ; HISTORY: Loss of consciousness.; ; COMPARISON: 07/23/2016.; ; Areas of decreased attentuation are present in the periventricular white matter.; This represents small vessel ischemic disease. There is no intraparenchymal; hemorrhage, mass, or midline shift. The ventricular system and cortical sulci; are dilated consistent with mild volume loss. There is no extracerebral; collection. There is no fracture. The visualized sinuses are clear.; ; IMPRESSION:; ; 1. Small vessel ischemic disease.; ; 2. Mild volume loss.; ; ; Signed by; Modesto May MD 10/13/2016 02:48 P; Outcome: 12:42 Decision to Hospitalize by Provider. br1 15:52 Discharge Assessment: Patient awake, alert and oriented x 3. No cognitive and/or mb9 functional deficits noted. Patient verbalized understanding of disposition instructions. patient administered narcotics - no. The following High Risk Discharge criteria are identified: None. Admitted to PCU accompanied by nurse, accompanied by tech. Condition: good Condition: stable Condition: improved. CT Study completed. Property :Personal belongings accompany Pt. 23:42 Patient left the ED. s Signatures: Dispatcher [employer] EDMS Yazmin Barry, Repairer Wood Furniture Unit lbd Deborah Elmore RN Tom Hardy,RN RN Humera Delgado, RN Isa Stovall mcp, Michael Reg lg Va Cooney MD MD br1 Aleshia Gray RN RN aa3 Main Patiño RN RN mgs Belles, Michael, RN RN mb9 Coreen Ramírez, JACOB OUTSIDE SALES ENGINEER rs6 MTDD
--- NOTE | 2016-10-13 23:42 | EDDOCDS ---
Physician Documentation [facility] Name: Althea Queen Age: 80 yrs Sex: Female : 1935 Arrival Date: 10/13/2016 Time: 10:38 Bed Admit Hold Private MD: Bjorn Castillo M.D. Disposition: 10/13/16 12:42 Hospitalization ordered by Mekhi Leiva for Inpatient Admission. Preliminary diagnosis is Syncope and collapse. - Bed requested for PCU. - Status is Inpatient Admission. mgs - Condition is Stable. - Problem is new. - Symptoms are unchanged. Historical: - Allergies: Demerol (confusion); Erythromycin (Vomit); - Home Meds: 1. atenolol 12.5 mg Oral once daily (Last dose: 10/13/2016 08:30) 2. fluoxetine 10 mg Oral cap once daily (Last dose: 10/13/2016 08:30) - PMHx: Anxiety; Cancer, Colon; Hypertension; - PSHx: Pacemaker Insertion; Cholecystectomy; Appendectomy; Tonsillectomy; breast biopsy; Cataract Surgery- Right; - Social history: Smoking status: Patient states was never smoker of tobacco. No barriers to communication noted, The patient speaks fluent Algerian. - Family history: No immediate family members are acutely ill. - : The pt / caregiver states he / she is not on anticoagulants. Home medication list is obtained from the patient. - Exposure Risk Screening:: None identified. Vital Signs: 10/13 10:48 Pulse 60; Resp 16; Pulse Ox 96% on R/A; Weight 63.5 kg / 139.99 lbs; Height 5 ft. 4 in. jmk (162.56 cm); 10:49 BP 121 / 60; jmk 11:03 Temp 97.0(O); rs6 12:44 Pulse 60 MON; Pulse Ox 97% ; mb9 12:45 BP 150 / 67 (auto/); mb9 13:15 Pulse 66 MON; Pulse Ox 96% ; mb9 13:15 BP 170 / 73 (auto/); mb9 14:26 Pulse 62 MON; Pulse Ox 96% ; mb9 14:26 BP 169 / 74 (auto/); mb9 14:45 Pulse 62 MON; Pulse Ox 98% ; mb9 14:45 BP 166 / 72 (auto/); mb9 15:15 Pulse 62 MON; Pulse Ox 98% ; mb9 15:15 BP 171 / 72 (auto/); mb9 15:45 Pulse 62 MON; Pulse Ox 95% ; mb9 15:45 BP 177 / 76 (auto/); Pulse 62; Resp 17; Temp 98.2(TE); Pulse Ox 95% on R/A; mb9 10:48 Body Mass Index 24.03 (63.50 kg, 162.56 cm) tray MDM: 10:44 ECG WITH READING ER PHYS+CARDIAG ordered. EDMS 10:46 Packaging Tech/Pulse Ox/q 30 min VS ordered. br1 10:46 IV Saline Lock ordered. br1 10:46 Rhythm Strip to chart ordered. br1 10:46 Undress patient appropriately for examination ordered. br1 10:47 Basic Metabolic Profile Ordered. EDMS 10:47 CBC with Diff Ordered. EDMS 10:47 Cardiac Injury Profile Ordered. EDMS 10:47 Troponin Ordered. EDMS 11:30 NS 0.9% 1000 ml IV at 150 mL/hr continuous ordered. br1 11:31 Chest, 2 View (pa\E\lat) Ordered. EDMS 11:57 CBC with Diff Reviewed. br1 12:25 Financial registration complete. lg 12:33 Basic Metabolic Profile Reviewed. br1 12:33 Cardiac Injury Profile Reviewed. br1 12:33 Troponin Reviewed. br1 12:48 BED REQUEST+ADM ordered. EDMS 13:35 [facility] Payment Agreement was scanned into [employer] and attached to record. lg 13:47 CARDIAC INJURY PROFILE Ordered. EDMS 13:47 TROPONIN Ordered. EDMS 13:49 Admission / Observation Status ordered. EDMS 13:50 ECHOCARD,DOPPLER/COLOR FLOW ordered. EDMS 13:52 CT Head without contrast Ordered. EDMS 16:32 prednisoLONE Drops 1 % 1 drps Ophthalmic once; shake well before using. to right eye. mb9 ordered. 17:36 REGULAR DIET ordered. EDMS 19:31 CARDIAC INJURY PROFILE Ordered. EDMS 19:31 CARDIAC INJURY PROFILE Ordered. EDMS 19:32 TROPONIN Ordered. EDMS 19:32 COMPLETE BLOOD COUNT Ordered. EDMS 19:32 BASIC METABOLIC PROFILE Ordered. EDMS 19:32 MAGNESIUM LEVEL Ordered. EDMS 20:19 ELECTROCARDIOGRAM ADULT ordered. EDMS Administered Medications: 11:46 Drug: NS 0.9% 1000 ml [sodium chloride 0.9 % intravenous solution] Route: IV; Rate: 150 mb9 mL/hr; Site: left antecubital; 16:32 Drug: prednisoLONE 1 drps [prednisolone acetate 1 % eye drops,suspension (1 drps)] mb9 Route: Ophthalmic; Site: right eye; Signatures: Dispatcher [employer] EDMS Deborah Elmore RN RN Tom JoseRN RN Isa Villatoro, Reg Reg lg Kulwant Cooney MD MD br1 Main Patiño RN RN Talib Ruby RN RN mb9 The chart was reviewed and I authenticate all verbal orders and agree with the evaluation and treatment provided.Corrections: (The following items were deleted from the chart) 15:50 10:46 Orthostatic VS ordered. br1 mb9 17:35 13:47 REGULAR DIET ordered. EDMS EDMS Attachments: 13:35 [facility] Payment Agreement lg MTDD
[2016-10-13 23:55] VITALS: BP 180/80
[2016-10-14 00:01] VITALS: BP 158/62
[2016-10-14] MEDS ORDERED: SLF 3 ML SYR IV PRN (00:45)
[2016-10-14 03:23] LABS: MEAN CORPUSCULAR HGB CONC 31.6 g/dl (32.0-36.5); MEAN CORPUSCULAR VOLUME 91.9 fl (80.0-96.0); RED CELL DISTRIBUTION WIDTH 12.7 % (11.5-14.5); WHITE BLOOD COUNT 8.4 K/mm3 (4.0-10.0)
[2016-10-14 03:51] LABS: ANION GAP 8 MEQ/L (8-16); BLOOD UREA NITROGEN 26 MG/DL (7-18); CALCIUM LEVEL 8.5 MG/DL (8.8-10.2); CARBON DIOXIDE LEVEL 24 MEQ/L (21-32); CHLORIDE LEVEL 114 MEQ/L (98-107); CREATININE FOR GFR 0.94 MG/DL (0.55-1.02); GLOMERULAR FILTRATION RATE > 60.0 (>32); GLUCOSE, FASTING 127 MG/DL (83-110); POTASSIUM SERUM 4.1 MEQ/L (3.5-5.1); SODIUM LEVEL 146 MEQ/L (136-145)
[2016-10-14 05:05] VITALS: BP_SYST 159; BP_SYST 164; BP_SYST 181; BP_DIAS 66; BP_DIAS 71; BP_DIAS 78
[2016-10-14] MEDS ORDERED: SLF 3 ML SYR IV SCH (06:00)
--- NOTE | 2016-10-14 07:27 | ECGEPIP ---
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
[2016-10-14 08:00] VITALS: BP 140/58
--- NOTE | 2016-10-14 08:14 | IPN ---
DATE: 10/14/2016 Mrs. Queen had an uneventful night. She feels good and would like to go home. She denies any chest pain or shortness of breath. Vital Signs: Blood pressure is somewhat dropping with orthostatic maneuvers. It was 181/78 when lying flat, 159/71 sitting and 164/66 standing. Saturation is 99% on room air. Her heart rate is in the 60s and 70s and she is afebrile. She is alert and oriented and appropriate. Her jugular venous pulse (JVP) is not elevated. Lungs are clear. Heart exam reveals a regular rhythm. I do not appreciate any gallop. There is a murmur approximately 1-2/6 systolic, best heard from the sternum. Abdomen is soft, nontender. No peripheral edema. Laboratory-[place], basic metabolic panel reveals sodium 146, potassium 4.1, BUN 26 , creatinine 0.9, and glucose 127. She has three sets of negative cardiac enzymes and CBC is normal but for hemoglobin marginally low at 11.7. ECG this morning reveals sinus rhythm and is normal. I interrogated her pacemaker this morning and it reveals perfectly normal function. There were no arrhythmias recorded ASSESSMENT/PLAN: Mrs. Queen is an 80-year-old female who biologically though appears much younger. She has a history of sick sinus syndrome for which she has a pacemaker, but she also has recurrent episodes of syncope that it is almost certainly neurocardiogenic. She had yet another episode yesterday. The story sounds classic. 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 She started feeling hot, nauseated and diaphoretic and managed to sit down. Her symptoms though persisted so the ambulance was called. Upon their arrival when they tried to stand her up, she actually truly lost consciousness. She has had numerous episodes of this kind over the years and with always identical scenario. I do not believe that we will prevent further episodes. I encouraged again the patient to maintain well hydrated and if she should have a prodromal symptom then she absolutely has to sit down or even better lay down and not stand up until her symptoms are completely clear. Numerous attempts in the past to introduce different medications were not successful in mitigating her symptoms. Otherwise, she is hypertensive. I believe that we can give her a small dose of VALENTE inhibitor in order to help her blood pressure, but I would go very gingerly. From my perspective, she can be discharged home and I will arrange for followup within next few weeks. ASHKAN
[2016-10-14] MEDS ORDERED: LISI2.5T3 PO (08:25)
[2016-10-14] MEDS ORDERED: ENTER DRUG NAME HERE (PATIENT'S OWN MED) PO SCH (09:00)
[2016-10-14] MEDS ORDERED: MULTIVITAMINS/MINERALS THERAP 1 TAB PO SCH (09:00)
[2016-10-14] MEDS ORDERED: VITAMIN D 1,000 INTERNATIONAL UNITS TABLET PO SCH (09:00)
[2016-10-14] MEDS ORDERED: FLUoxetine 10 MG CAP PO SCH (09:00)
[2016-10-14] MEDS: PANTOPRAZOLE 40MG TAB (PROTONIX) PO SCH (09:37)
[2016-10-14] MEDS: prednisoLONE ACET 1% OPHTH SUSP 5ML OD SCH (09:40)
--- NOTE | 2016-10-14 11:32 | DSES ---
DATE OF ADMISSION: 10/13/2016 DATE OF DISCHARGE: 10/14/2016 DISCHARGE DIAGNOSIS: Vasovagal syncope. SECONDARY DIAGNOSES: 1. Sick sinus syndrome status post permanent pacemaker placement. 2. Dyslipidemia. 3. Benign paroxysmal positional vertigo. 4. Gastroesophageal reflux disease. 5. Osteoporosis. 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 She sat down, emergency medical services (EMS) was called, and she was still not feeling well, but they attempted to stand her up and the patient collapsed. The patient has had numerous episodes of this throughout her life. She follows with Dr. Lyles of cardiology regarding her history of syncope. He has done an extensive workup on her and tried multiple medications. He feels as though this is vasovagal syncope, neurocardiogenic in nature. The patient was seen in consultation by Dr. Lyles who interrogated her pacemaker device this morning and found no abnormalities to it. At this time, the patient's symptoms have completely resolved and she is back to her baseline. SUBJECTIVE: The patient reports she feels great and she wants to go home. She has no complaints. OBJECTIVE: VITAL SIGNS: Temperature 96.7, pulse 82, respiratory rate 18, blood pressure 140/58, oxygen saturation 100% on room air. GENERAL: She is a very pleasant, elderly, female, sitting up in bed, in no distress. HEENT: Cranial nerves II-XII are grossly intact. She has moist mucous membranes. No elevation in central venous pressure (CVP). CARDIOVASCULAR EXAM: S1, S2, regular. RESPIRATORY EXAM: Clear. ABDOMINAL EXAM: Benign. EXTREMITIES: No clubbing, cyanosis, or edema. She has 5/5 strength in all four extremities. NEUROLOGICAL EXAM: Nonfocal. LABORATORY STUDIES: WBC 8.4, hemoglobin 11.7, platelet count 250. Chemistry panel: Sodium 146, potassium 4.1, chloride 114, bicarbonate 24, BUN 26, creatinine 0.9. She had three sets of cardiac enzymes which are negative. She did have a CT scan of her head which reveals small vessel ischemic disease and mild volume loss. She also had a chest xray which revealed old granulomatous disease. ASSESSMENT AND PLAN: This is an 80-year-old female with neurocardiogenic syncope. 1. Neurocardiogenic vasovagal syncope. The patient has a history of sick sinus syndrome and a long history of recurrent episodes of syncope. She follows with Dr. Lyles regarding these, he has seen her this morning. Her signs and symptoms do appear to be quite classic for vasovagal syncope. Her device has been interrogated without event. Dr. Lyles and I have both advised her that should she have any other prodromal symptoms she should lay down until her symptoms have completely resolved. She has attempted numerous medications in the past without successful mitigation of her symptoms. The patient was mildly hypertensive, we are restarting her atenolol upon discharge, but also starting 2.5 mg of lisinopril. She will followup with Dr. Lyles in the near future, he can consider further titration of this medication. 2. Osteoporosis. The patient is on vitamin D. 3. Depression. The patient is on Prozac. 4. Postoperative cataract surgery. The patient is continued on Pred Forte. DISPOSITION: The patient is being discharged home to the care of her family. She is at her clinical baseline. She should followup with her primary care provider (PCP) in [address] Lyles within 7 days. Her activity and diet are as prior to admission. She is to return to the emergency room (ER) if her symptoms worsen. MEDICATIONS AT THE TIME OF DISCHARGE: - lisinopril 2.5 mg daily - atenolol 12.5 mg daily - vitamin D 1000 units daily - fluoxetine 10 mg daily - magnesium 250 mg daily - multivitamin one tablet daily - Pred Forte 1% opthalmic solution one drop right eye four times daily Greater than 30 minutes spent organizing disposition.
--- NOTE | 2016-10-14 20:41 | CR ---
DATE OF CONSULTATION: 10/13/2016 REASON FOR CONSULTATION: Syncope/near syncope. PRIMARY PROVIDER: Dr. Bjorn Castillo PRIMARY SOLE SKIVER: Dr. Catherine Lyles HISTORY OF PRESENT ILLNESS: An 80-year-old woman, well known by the office, with a history of syncope and near syncope, for which a permanent pacemaker was implanted initially in 2005, and the battery was replaced in 2012. She has been doing well, she stated, in the past 3 years without any episodes of near syncope. The last time she was admitted here for the same problem, I believe I had seen her. Yesterday, she had cataract extraction, and this morning she went to see her information assistant at the eye center, and after checking up and while waiting to get an appointment, she suddenly felt flushed and was sweaty. She managed to go to a seat and join her . After sitting down, she tried to get up. According to the , she was limp and fell back on the chair. There was no associated chest pain, palpitations, loss of sphincter control, or tonic/clonic movements. She was brought down the emergency room (ER) for further evaluation, and upon arrival her vital signs revealed a blood pressure of 121/60 with a pulse of 60, respirations 16, and her maximum temperature was 97 degrees Fahrenheit with an oxygen saturation of 96% on room air. Her weight was 63.5 kg, and she is 5 feet 4 inches. She was admitted for observation, and cardiology consultation was called. When I saw Mrs. Althea Queen, in the ER, she was supine in bed in no acute distress at rest. She has not been walking and out of bed much, but she managed to get up once today since in the hospital, and she stated that she felt fine. She is now waiting for a bed to go to progressive care unit (PCU). As mentioned above, she denies any associated chest pain or shortness of breath or palpitations with her episode of syncope and near syncope. She denies any nausea , vomiting, diarrhea, melena, or hematemesis. She has no fever. This morning she did have breakfast before going to her clinic at the urgent care center. There is no dysuria, polyuria, hematuria. There is no focal manifestation. She has a past medical history, as mentioned above, positive for syncope and near syncope, hypertension, anxiety/depression, sick sinus syndrome, and permanent pacemaker implantation. There is no known history of coronary artery disease, diabetes mellitus, significant valvular heart disease, atrial fibrillation, cardiomyopathy, cerebrovascular accident (CVA), sudden cardiac . There is no history of thyroid disease, liver disease, kidney disease, lung disease. PAST SURGICAL HISTORY: Positive for dual-chamber permanent pacemaker implantation in August 2006, and in March 2013 she had a new generator. She also had appendectomy, tonsillectomy, and breast biopsy. Her last surgery was yesterday, right cataract extraction. FAMILY HISTORY: Noncontributory. MEDICATIONS: Prior to coming to the hospital: - atenolol 12.5 mg by mouth daily - fluoxetine 10 mg by mouth daily - Claritin as needed for allergies - Slow-Mag/calcium carbonate one tablet by mouth daily - vitamin D one tablet by mouth daily - multivitamin one tablet by mouth daily SOCIAL HISTORY: Patient lives with her , and there is no reported smoking or EtOH (ethanol) abuse. ALLERGIES: She has allergies to mushrooms, MEPERIDINE, and ERYTHROMYCIN. PHYSICAL EXAMINATION: Patient is alert and oriented in no acute distress at rest. Her last vital signs when I was at bedside revealed a blood pressure of 169 mm of mercury, and prior to that around 4 p.m, her vital signs revealed a b of 177/75 with a pulse of 62, respirations 16, and her temperature was 98.2 degree Fahrenheit with an oxygen saturation of 99% on room air. HEAD, EYES, EARS, NOSE, AND THROAT: Atraumatic. NECK: Supple. No jugular venous distention (JVD) or carotid bruits. LUNGS: Clear bilaterally on auscultation and percutaneous without any wheezing or crackles. HEART: Revealed normal S1, S2 without gallops. The point of maximal impulse (PMI ) is not displaced. There is no rub. I could not appreciate any murmurs. ABDOMEN: Soft and nontender. Bowel sounds are active. EXTREMITIES: Revealed no pedal edema. NEUROLOGIC: Negative for focal deficit. LABORATORY DATA: CBC on 10/13/2016 revealed WBC of 8.8, hemoglobin 12.4, hematocrit 39.4, and platelets 254,000. BMP revealed a sodium of 144, potassium 4.5, chloride 112, CO2 of 25, BUN 18, creatinine 1.13, GFR 49.3, and fasting glucose 138. Serum troponin was less than 0.02 times two. Chest x-ray was reviewed, and there is no manifestation of heart failure or pleural effusion. No cardiomegaly. Head CT on 10/13/2016 revealed small-vessel ischemic disease and mild volume loss. Otherwise unremarkable. Electrocardiogram revealed electronic atrial pacemaker activity at 60 beats per minute and minimal repolarization abnormality noted in the inferolateral leads; otherwise unremarkable. There are some ST-T abnormalities noted in V1 and V2 that do not seem to be recent in last echocardiogram done at the office. This also was compared with an old electrocardiogram done here on 07/23/2016, and it was not there. IMPRESSION: This seems to be ariane vu again in this 80-year-old woman with a history of syncope or near syncope, for which a permanent pacemaker was implanted initially in 2005, and the battery was replaced in 2012, hypertension, and anxiety/depression. This seems to be vasovagal in nature. She has been asymptomatic since being in the hospital. She has been confined to the bed, and she can ambulate initially with the help of the nurse under supervision. If she remains asymptomatic, we can discontinue the bedrest. Her labs so far have been benign. Her EKG revealed some nonspecific ST-T abnormalities noted in V1 and V2, and it will be repeated. Her blood pressure is running high, and she is at this present time on normal saline at 125 mL an hour, and it could be discontinued. She has been eating and without any gastrointestinal (GI) symptoms. Tomorrow morning her pacemaker will be checked, and further workup can be done as outpatient if she remains asymptomatic. She is now waiting for a bed in PCU, and she is on telemetry, and there have not been any arrhythmias. Orthostatic was not checked upon arrival in the ER, and will be checked. It probably will be normal, because she has been on intravenous (IV) fluids. It was a pleasure to participate in the care of Mrs. Althea Queen for her underlying cardiac condition. I will continue to monitor along with you while in the hospital. At the present time, she appears to be stable. Please do not hesitate to call with any questions. ASHKAN
--- NOTE | 2016-10-16 00:42 | EDDOCDS ---
Physician Documentation [facility] Name: Althea Queen Age: 80 yrs Sex: Female : 1935 Arrival Date: 10/13/2016 Time: 10:38 Bed Admit Hold Private MD: Bjorn Castillo M.D. Disposition: 10/13/16 12:42 Hospitalization ordered by Mekhi Leiva for Inpatient Admission. Preliminary diagnosis is Syncope and collapse. - Bed requested for PCU. - Status is Inpatient Admission. mgs - Condition is Stable. - Problem is new. - Symptoms are unchanged. Historical: - Allergies: Demerol (confusion); Erythromycin (Vomit); - Home Meds: 1. atenolol 12.5 mg Oral once daily (Last dose: 10/13/2016 08:30) 2. fluoxetine 10 mg Oral cap once daily (Last dose: 10/13/2016 08:30) - PMHx: Anxiety; Cancer, Colon; Hypertension; - PSHx: Pacemaker Insertion; Cholecystectomy; Appendectomy; Tonsillectomy; breast biopsy; Cataract Surgery- Right; - Social history: Smoking status: Patient states was never smoker of tobacco. No barriers to communication noted, The patient speaks fluent Yemeni. - Family history: No immediate family members are acutely ill. - : The pt / caregiver states he / she is not on anticoagulants. Home medication list is obtained from the patient. - Exposure Risk Screening:: None identified. Vital Signs: 10/13 10:48 Pulse 60; Resp 16; Pulse Ox 96% on R/A; Weight 63.5 kg / 139.99 lbs; Height 5 ft. 4 in. jmk (162.56 cm); 10:49 BP 121 / 60; jmk 11:03 Temp 97.0(O); rs6 12:44 Pulse 60 MON; Pulse Ox 97% ; mb9 12:45 BP 150 / 67 (auto/); mb9 13:15 Pulse 66 MON; Pulse Ox 96% ; mb9 13:15 BP 170 / 73 (auto/); mb9 14:26 Pulse 62 MON; Pulse Ox 96% ; mb9 14:26 BP 169 / 74 (auto/); mb9 14:45 Pulse 62 MON; Pulse Ox 98% ; mb9 14:45 BP 166 / 72 (auto/); mb9 15:15 Pulse 62 MON; Pulse Ox 98% ; mb9 15:15 BP 171 / 72 (auto/); mb9 15:45 Pulse 62 MON; Pulse Ox 95% ; mb9 15:45 BP 177 / 76 (auto/); Pulse 62; Resp 17; Temp 98.2(TE); Pulse Ox 95% on R/A; mb9 10:48 Body Mass Index 24.03 (63.50 kg, 162.56 cm) tray MDM: 10:44 ECG WITH READING ER PHYS+CARDIAG ordered. EDMS 10:46 Tearoom Host/Hostess/Pulse Ox/q 30 min VS ordered. br1 10:46 IV Saline Lock ordered. br1 10:46 Rhythm Strip to chart ordered. br1 10:46 Undress patient appropriately for examination ordered. br1 10:47 Basic Metabolic Profile Ordered. EDMS 10:47 CBC with Diff Ordered. EDMS 10:47 Cardiac Injury Profile Ordered. EDMS 10:47 Troponin Ordered. EDMS 11:30 NS 0.9% 1000 ml IV at 150 mL/hr continuous ordered. br1 11:31 Chest, 2 View (pa\E\lat) Ordered. EDMS 11:57 CBC with Diff Reviewed. br1 12:25 Financial registration complete. lg 12:33 Basic Metabolic Profile Reviewed. br1 12:33 Cardiac Injury Profile Reviewed. br1 12:33 Troponin Reviewed. br1 12:48 BED REQUEST+ADM ordered. EDMS 13:35 [facility] Payment Agreement was scanned into [employer] and attached to record. lg 13:47 CARDIAC INJURY PROFILE Ordered. EDMS 13:47 TROPONIN Ordered. EDMS 13:49 Admission / Observation Status ordered. EDMS 13:50 ECHOCARD,DOPPLER/COLOR FLOW ordered. EDMS 13:52 CT Head without contrast Ordered. EDMS 16:32 prednisoLONE Drops 1 % 1 drps Ophthalmic once; shake well before using. to right eye. mb9 ordered. 17:36 REGULAR DIET ordered. EDMS 19:31 CARDIAC INJURY PROFILE Ordered. EDMS 19:31 CARDIAC INJURY PROFILE Ordered. EDMS 19:32 TROPONIN Ordered. EDMS 19:32 COMPLETE BLOOD COUNT Ordered. EDMS 19:32 BASIC METABOLIC PROFILE Ordered. EDMS 19:32 MAGNESIUM LEVEL Ordered. EDMS 20:19 ELECTROCARDIOGRAM ADULT ordered. EDMS 10/14 10:56 T-Sheet-- Draft Copy was scanned into [employer] and attached to record. gb 10:56 ECG/EKG was scanned into [employer] and attached to record. gb 10:57 Rhythm Strip was scanned into [employer] and attached to record. gb 10:57 Radiology Report was scanned into [employer] and attached to record. gb Administered Medications: 10/13 11:46 Drug: NS 0.9% 1000 ml [sodium chloride 0.9 % intravenous solution] Route: IV; Rate: 150 mb9 mL/hr; Site: left antecubital; 16:32 Drug: prednisoLONE 1 drps [prednisolone acetate 1 % eye drops,suspension (1 drps)] mb9 Route: Ophthalmic; Site: right eye; Signatures: Dispatcher [employer] EDMS Deborah Elmore RN RN Tom Jose,RN RN Yadi Stapleton, Reg Reg gb Isa Dick, Reg Reg lg Kulwant Cooney MD MD br1 Main Patiño RN RN Talib RubyRN RN mb9 The chart was reviewed and I authenticate all verbal orders and agree with the evaluation and treatment provided.Corrections: (The following items were deleted from the chart) 15:50 10:46 Orthostatic VS ordered. br1 mb9 17:35 13:47 REGULAR DIET ordered. EDMS EDMS Attachments: 13:35 [facility] Payment Agreement lg 10/14 10:56 T-Sheet-- Draft Copy gb 10:56 ECG/EKG gb Chart Complete MTDD
--- NOTE | 2016-10-16 00:43 | EDDOCDS ---
Physician Documentation [facility] Name: Althea Queen Age: 80 yrs Sex: Female : 1935 Arrival Date: 10/13/2016 Time: 10:38 Bed Admit Hold Private MD: Bjonr Castillo M.D. Disposition: 10/13/16 12:42 Hospitalization ordered by Mekhi Leiva for Inpatient Admission. Preliminary diagnosis is Syncope and collapse. - Bed requested for PCU. - Status is Inpatient Admission. mgs - Condition is Stable. - Problem is new. - Symptoms are unchanged. Historical: - Allergies: Demerol (confusion); Erythromycin (Vomit); - Home Meds: 1. atenolol 12.5 mg Oral once daily (Last dose: 10/13/2016 08:30) 2. fluoxetine 10 mg Oral cap once daily (Last dose: 10/13/2016 08:30) - PMHx: Anxiety; Cancer, Colon; Hypertension; - PSHx: Pacemaker Insertion; Cholecystectomy; Appendectomy; Tonsillectomy; breast biopsy; Cataract Surgery- Right; - Social history: Smoking status: Patient states was never smoker of tobacco. No barriers to communication noted, The patient speaks fluent Gabonese. - Family history: No immediate family members are acutely ill. - : The pt / caregiver states he / she is not on anticoagulants. Home medication list is obtained from the patient. - Exposure Risk Screening:: None identified. Vital Signs: 10/13 10:48 Pulse 60; Resp 16; Pulse Ox 96% on R/A; Weight 63.5 kg / 139.99 lbs; Height 5 ft. 4 in. jmk (162.56 cm); 10:49 BP 121 / 60; jmk 11:03 Temp 97.0(O); rs6 12:44 Pulse 60 MON; Pulse Ox 97% ; mb9 12:45 BP 150 / 67 (auto/); mb9 13:15 Pulse 66 MON; Pulse Ox 96% ; mb9 13:15 BP 170 / 73 (auto/); mb9 14:26 Pulse 62 MON; Pulse Ox 96% ; mb9 14:26 BP 169 / 74 (auto/); mb9 14:45 Pulse 62 MON; Pulse Ox 98% ; mb9 14:45 BP 166 / 72 (auto/); mb9 15:15 Pulse 62 MON; Pulse Ox 98% ; mb9 15:15 BP 171 / 72 (auto/); mb9 15:45 Pulse 62 MON; Pulse Ox 95% ; mb9 15:45 BP 177 / 76 (auto/); Pulse 62; Resp 17; Temp 98.2(TE); Pulse Ox 95% on R/A; mb9 10:48 Body Mass Index 24.03 (63.50 kg, 162.56 cm) tray MDM: 10:44 ECG WITH READING ER PHYS+CARDIAG ordered. EDMS 10:46 Pathology Transcriptionist/Pulse Ox/q 30 min VS ordered. br1 10:46 IV Saline Lock ordered. br1 10:46 Rhythm Strip to chart ordered. br1 10:46 Undress patient appropriately for examination ordered. br1 10:47 Basic Metabolic Profile Ordered. EDMS 10:47 CBC with Diff Ordered. EDMS 10:47 Cardiac Injury Profile Ordered. EDMS 10:47 Troponin Ordered. EDMS 11:30 NS 0.9% 1000 ml IV at 150 mL/hr continuous ordered. br1 11:31 Chest, 2 View (pa\E\lat) Ordered. EDMS 11:57 CBC with Diff Reviewed. br1 12:25 Financial registration complete. lg 12:33 Basic Metabolic Profile Reviewed. br1 12:33 Cardiac Injury Profile Reviewed. br1 12:33 Troponin Reviewed. br1 12:48 BED REQUEST+ADM ordered. EDMS 13:35 [facility] Payment Agreement was scanned into [employer] and attached to record. lg 13:47 CARDIAC INJURY PROFILE Ordered. EDMS 13:47 TROPONIN Ordered. EDMS 13:49 Admission / Observation Status ordered. EDMS 13:50 ECHOCARD,DOPPLER/COLOR FLOW ordered. EDMS 13:52 CT Head without contrast Ordered. EDMS 16:32 prednisoLONE Drops 1 % 1 drps Ophthalmic once; shake well before using. to right eye. mb9 ordered. 17:36 REGULAR DIET ordered. EDMS 19:31 CARDIAC INJURY PROFILE Ordered. EDMS 19:31 CARDIAC INJURY PROFILE Ordered. EDMS 19:32 TROPONIN Ordered. EDMS 19:32 COMPLETE BLOOD COUNT Ordered. EDMS 19:32 BASIC METABOLIC PROFILE Ordered. EDMS 19:32 MAGNESIUM LEVEL Ordered. EDMS 20:19 ELECTROCARDIOGRAM ADULT ordered. EDMS 10/14 10:56 T-Sheet-- Draft Copy was scanned into [employer] and attached to record. gb 10:56 ECG/EKG was scanned into [employer] and attached to record. gb 10:57 Rhythm Strip was scanned into [employer] and attached to record. gb 10:57 Radiology Report was scanned into [employer] and attached to record. gb Administered Medications: 10/13 11:46 Drug: NS 0.9% 1000 ml [sodium chloride 0.9 % intravenous solution] Route: IV; Rate: 150 mb9 mL/hr; Site: left antecubital; 16:32 Drug: prednisoLONE 1 drps [prednisolone acetate 1 % eye drops,suspension (1 drps)] mb9 Route: Ophthalmic; Site: right eye; Signatures: Dispatcher [employer] EDMS Deborah Elmore RN RN Tom Jose,RN RN Yadi Stapleton, Reg Reg gb Isa Dick, Reg Reg lg Kulwant Cooney MD MD br1 Main Patiño RN RN Talib RubyRN RN mb9 The chart was reviewed and I authenticate all verbal orders and agree with the evaluation and treatment provided.Corrections: (The following items were deleted from the chart) 15:50 10:46 Orthostatic VS ordered. br1 mb9 17:35 13:47 REGULAR DIET ordered. EDMS EDMS Attachments: 13:35 [facility] Payment Agreement lg 10/14 10:56 T-Sheet-- Draft Copy gb 10:56 ECG/EKG gb Chart Complete MTDD
--- NOTE | 2016-10-16 00:43 | EDDOCDS ---
Nurse's Notes [facility] Name: Мария Maki Age: 80 yrs Sex: Female : 1935 Arrival Date: 10/13/2016 Time: 10:38 Bed Admit Hold Private MD: Bjorn Castillo M.D. Diagnosis: Syncope and collapse Presentation: 10/13 10:40 Presenting complaint: Patient states: Per EMS history of syncopal events. + pacer. jmk experienced near syncope today while sitting. LOC upon standing. Without seizure activity. FS 110 en route. denies chest pain or SOB. + diaphoresis. Adult Sepsis Screening: The patient does not have new or worsening altered mentation. Patient's respiratory rate is less than 22. Systolic blood pressure is greater than 100. Patient has a qSOFA score of 0- Negative Sepsis Screen. Suicide/Homicide risk assessment- the patient denies having any suicidal and/or homicidal ideations and does not present with any other emotional, behavioral or mental health complaints. Status: Patient is not a financial services officer or dependent. Transition of care: patient was not received from another setting of care. 10:40 Acuity: SRAVANTHI Level 3 [facility] 10:40 Method Of Arrival: Ambulance [facility] Triage Assessment: 10:47 General: Appears in no apparent distress. Pain: Denies pain. [facility] Historical: - Allergies: Demerol (confusion); Erythromycin (Vomit); - Home Meds: 1. atenolol 12.5 mg Oral once daily (Last dose: 10/13/2016 08:30) 2. fluoxetine 10 mg Oral cap once daily (Last dose: 10/13/2016 08:30) - PMHx: Anxiety; Cancer, Colon; Hypertension; - PSHx: Pacemaker Insertion; Cholecystectomy; Appendectomy; Tonsillectomy; breast biopsy; Cataract Surgery- Right; - Social history: Smoking status: Patient states was never smoker of tobacco. No barriers to communication noted, The patient speaks fluent Romanian. - Family history: No immediate family members are acutely ill. - : The pt / caregiver states he / she is not on anticoagulants. Home medication list is obtained from the patient. - Exposure Risk Screening:: None identified. Screenin:52 Screening information is obtained from the patient. Fall risk: No risks identified. mb9 Assistance ADL's: requires no assistance with activities of daily living. Abuse/DV Screen: The patient / caregiver reports he/she is: not in a situation that causes fear, pain or injury. Nutritional screening: No deficits noted. Advance Directives: There is no active DNR order. home support is adequate. Assessment: 11:02 General: Appears in no apparent distress, Behavior is cooperative. Pain: Denies pain. mcp Neurological: Level of Consciousness is awake, alert, Oriented to person, place, time, Moves all extremities. Speech is normal, Pupils are right eye does not react--just had cataract surgery yesterday. left eye reactive. Cardiovascular: Rhythm is sinus rhythm. Respiratory: Airway is patent Respiratory effort is even, unlabored, Breath sounds are clear bilaterally. Derm: Skin is pink, warm & dry. 11:28 General: Appears in no apparent distress, Behavior is cooperative. Pain: Denies pain. mb9 Neurological: Level of Consciousness is awake, alert, Oriented to person, place, time, Speech is normal, Facial symmetry appears normal, Pupils are pt's right eye does not react. pt reports cataract surgery yesterday. Cardiovascular: Rhythm is sinus rhythm. Respiratory: Airway is patent Breath sounds are clear bilaterally. 12:06 General: Dr Cooney notified that pt was requesting her prednisolone eye drops be mb9 ordered here in the ER. Dr Cooney states, "She's being admitted the hospitalist can order that". pt made aware. . 12:41 Reassessment: Patient appears in no apparent distress at this time. Patient states mb9 feeling better. Adult Sepsis Screening: The patient does not have new or worsening altered mentation. Patient's respiratory rate is less than 22. Systolic blood pressure is greater than 100. Patient has a qSOFA score of 0- Negative Sepsis Screen. General: Appears in no apparent distress, Behavior is fussy. Pain: Denies pain. Respiratory: Airway is patent Respiratory effort is even, unlabored. 13:00 General: Dr Hidalgoed in to see pt at this time. . mb9 13:25 Reassessment: Patient appears in no apparent distress at this time. General: Appears mb9 comfortable, Behavior is appropriate for age, cooperative. Pain: Denies pain. Respiratory: Airway is patent Respiratory effort is even, unlabored. 14:36 Reassessment: Patient appears in no apparent distress at this time. General: Appears in mb9 no apparent distress, comfortable, Behavior is fussy. Pain: Denies pain. Respiratory: Airway is patent Respiratory effort is even, unlabored. 15:23 Reassessment: Patient appears in no apparent distress at this time. General: Appears mb9 comfortable, Behavior is appropriate for age, cooperative. Respiratory: Airway is patent Respiratory effort is even, unlabored. 16:00 General: Report taken from Laci Deluna RN. All further charting will be in [facility].. aa3 23:40 General: Appears in no apparent distress. Neurological: Level of Consciousness is mgs awake, alert, Oriented to person, place, time. Cardiovascular: Capillary refill < 3 seconds. Respiratory: Airway is patent Respiratory effort is even, unlabored. Derm: Skin is pink, warm & dry. Vital Signs: 10:48 Pulse 60; Resp 16; Pulse Ox 96% on R/A; Weight 63.5 kg; Height 5 ft. 4 in. (162.56 cm); jmk 10:49 BP 121 / 60; jmk 11:03 Temp 97.0(O); rs6 12:44 Pulse 60 MON; Pulse Ox 97% ; mb9 12:45 BP 150 / 67 (auto/); mb9 13:15 Pulse 66 MON; Pulse Ox 96% ; mb9 13:15 BP 170 / 73 (auto/); mb9 14:26 Pulse 62 MON; Pulse Ox 96% ; mb9 14:26 BP 169 / 74 (auto/); mb9 14:45 Pulse 62 MON; Pulse Ox 98% ; mb9 14:45 BP 166 / 72 (auto/); mb9 15:15 Pulse 62 MON; Pulse Ox 98% ; mb9 15:15 BP 171 / 72 (auto/); mb9 15:45 Pulse 62 MON; Pulse Ox 95% ; mb9 15:45 BP 177 / 76 (auto/); Pulse 62; Resp 17; Temp 98.2(TE); Pulse Ox 95% on R/A; mb9 10:48 Body Mass Index 24.03 (63.50 kg, 162.56 cm) [facility] Vitals: 10:48 Log In Time N/A - ambulance arrival. [facility] ED Course: 10:39 Patient visited by Yazmin Barry, Alignment Technician. lbd 10:39 Bjorn Castillo is Private Physician. lbd 10:39 Patient moved to Waiting lbd 10:39 Patient moved to 4 lbd 10:45 Triage Initiated jmk 10:50 Pt greeted and oriented to ED. Patient advised of names of staff involved in care, rs6 location of call basilio, wait times and NPO status. Accompanied by Significant Other, Patient has correct armband on for positive identification. Placed in gown. Bed in low position. Call light in reach. Side rails up X 1. quality assurance monitor chassis on. Pulse ox on. NIBP on. 10:50 EKG done. (by ED staff). Reviewed by Va Cooney MD. rs6 10:51 Patient visited by Coreen Ramírez PCA. rs6 11:04 Patient visited by Humera Berrios RN. mcp 11:04 The patient / caregiver is instructed regarding the plan of care and ED course. mcp 11:04 Maintain field IV. Dressing intact. Good blood return noted. Site clean & dry. mcp 11:08 PT had large solid bowel movement in bed mirza. Initially pt was attempting to get up to rs6 bedside commode but became dizzy and stated that she "felt like I am going to faint again, I need to lay back down." PT was placed back in bed and a bedpan was provided. . Assisted with bedpan. 11:10 Patient visited by Coreen Ramírez PCA. rs6 11:20 Va Cooney MD is Attending Physician. br1 11:28 Basic Metabolic Profile Sent. mb9 11:28 CBC with Diff Sent. mb9 11:28 Cardiac Injury Profile Sent. mb9 11:28 Troponin Sent. mb9 11:29 Patient visited by Va Cooney MD. br1 12:41 Patient visited by Va Cooney MD. br1 12:42 Mekhi Leiva is Hospitalizing Provider. br1 12:58 Chest, 2 View (pa\\E\\lat) Returned. EDMS 13:30 Patient visited by Coreen Ramírez PCA. rs6 13:30 Diet: Patient given regular meal. Tolerated well. rs6 13:35 [facility] [place] [facility] Payment Agreement was scanned into [employer] and attached to record. lg 14:15 Patient visited by Coreen Ramírez PCA. rs6 14:17 Patient moved to Admit Hold kpj 15:33 CT Head without contrast Returned. EDMS 15:52 No procedures done that require assistance. mb9 17:16 Patient moved to 20 kp 17:16 Patient moved to Admit Hold j 22:11 EKG-ADULT Returned. EDMS 10/14 10:56 T-Sheet-- Draft Copy was scanned into [employer] and attached to record. gb 10:56 ECG/EKG was scanned into [employer] and attached to record. gb 10:57 Rhythm Strip was scanned into [employer] and attached to record. gb 10:57 Radiology Report was scanned into [employer] and attached to record. gb Administered Medications: 10/13 11:46 Drug: NS 0.9% 1000 ml [sodium chloride 0.9 % intravenous solution] Route: IV; Rate: 150 mb9 mL/hr; Site: left antecubital; 16:32 Drug: prednisoLONE 1 drps [prednisolone acetate 1 % eye drops,suspension (1 drps)] mb9 Route: Ophthalmic; Site: right eye; Attachments: 10:57 Rhythm Strip gb Order Results: Lab Order: Basic Metabolic Profile; SPEC'M 10/13/16 11:25 Test: GLUCOSE, FASTING; Value: 138; Range: 83-110; Abnormal: Above high normal; Units: MG/DL; Status: F Test: BLOOD UREA NITROGEN; Value: 18; Range: 7-18; Units: MG/DL; Status: F Test: CREATININE FOR GFR; Value: 1.13; Range: 0.55-1.02; Abnormal: Above high normal; Units: MG/DL; Status: F Test: GLOMERULAR FILTRATION RATE; Value: 49.3; Range: >32; Status: F Test: SODIUM LEVEL; Value: 144; Range: 136-145; Units: MEQ/L; Status: F Test: POTASSIUM SERUM; Value: 4.5; Range: 3.5-5.1; Units: MEQ/L; Status: F Test: CHLORIDE LEVEL; Value: 112; Range: 98-107; Abnormal: Above high normal; Units: MEQ/L; Status: F Test: CARBON DIOXIDE LEVEL; Value: 25; Range: 21-32; Units: MEQ/L; Status: F Test: ANION GAP; Value: 7; Range: 8-16; Abnormal: Below low normal; Units: MEQ/L; Status: F Test: CALCIUM LEVEL; Value: 8.8; Range: 8.8-10.2; Units: MG/DL; Status: F Test Note: ; Units are mL/min/1.73 m2 Chronic Kidney Disease Staging per NKF: Stage I & II GFR >=60 Normal to Mildly Decreased Stage III GFR 30-59 Moderately Decreased Stage IV GFR 15-29 Severely Decreased Stage V GFR <15 Very Little GFR Left ESRD GFR <15 on CYTOPATHOLOGIST Lab Order: CBC with Diff; SPEC'M 10/13/16 11:25 Test: WHITE BLOOD COUNT; Value: 8.8; Range: 4.0-10.0; Units: K/mm3; Status: F Test: RED BLOOD COUNT; Value: 4.20; Range: 4.00-5.40; Units: M/mm3; Status: F Test: HEMOGLOBIN; Value: 12.4; Range: 12.0-16.0; Units: g/dl; Status: F Test: HEMATOCRIT; Value: 39.4; Range: 36.0-47.0; Units: %; Status: F Test: MEAN CORPUSCULAR VOLUME; Value: 93.7; Range: 80.0-96.0; Units: fl; Status: F Test: MEAN CORPUSCULAR HEMOGLOBIN; Value: 29.4; Range: 27.0-33.0; Units: pg; Status: F Test: MEAN CORPUSCULAR HGB CONC; Value: 31.3; Range: 32.0-36.5; Abnormal: Below low normal; Units: g/dl; Status: F Test: RED CELL DISTRIBUTION WIDTH; Value: 12.6; Range: 11.5-14.5; Units: %; Status: F Test: PLATELET COUNT, AUTOMATED; Value: 254; Range: 150-450; Units: k/mm3; Status: F Test: NEUTROPHILS %; Value: 75.5; Range: 36.0-66.0; Abnormal: Above high normal; Units: %; Status: F Test: LYMPH %; Value: 16.3; Range: 24.0-44.0; Abnormal: Below low normal; Units: %; Status: F Test: MONO %; Value: 4.8; Range: 0.0-5.0; Units: %; Status: F Test: EOS %; Value: 1.9; Range: 0.0-3.0; Units: %; Status: F Test: BASO %; Value: 0.3; Range: 0.0-1.0; Units: %; Status: F Test: LARGE UNSTAINED CELL %; Value: 1.3; Range: 0.0-4.0; Units: %; Status: F Test: NEUTROPHILS #; Value: 6.6; Range: 1.8-7.7; Units: K/mm3; Status: F Test: LYMPH #; Value: 1.4; Range: 1.5-4.5; Abnormal: Below low normal; Units: K/mm3; Status: F Test: MONO #; Value: 0.4; Range: 0.0-0.8; Units: K/mm3; Status: F Test: EOS #; Value: 0.2; Range: 0.0-0.50; Units: K/mm3; Status: F Test: BASO #; Value: 0.0; Range: 0.0-0.2; Units: K/mm3; Status: F Test: LARGE UNSTAINED CELL #; Value: 0.1; Range: 0.0-0.4; Units: K/mm3; Status: F Lab Order: Cardiac Injury Profile; SPEC'10/13/16 11:25 Test: CPK CREATINE PHOSPHOKINASE; Value: 65; Range: 26-192; Units: U/L; Status: F Test: CK-MB VALUE MASS; Value: 1.7; Range: 0.0-3.6; Units: NG/ML; Status: F Test: MB/CK RELATIVE INDEX; Value: 2.61; Range: < OR =4; Status: F Test Note: ; DIAGNOSIS CRITERIA MMB ng/ml Relative Index (RI) NON-AMI < or = 5 N/A LANG ZONE > 5 < or = 4 AMI > 5 > 4 Lab Order: Troponin; SPEC'M 10/13/16 11:25 Test: TROPONIN I; Value: < 0.02; Range: < 0.10; Units: NG/ML; Status: F Test Note: ; Troponin I Reference Interval for [employer] LOCI: 99th Percentile= 0.00-0.045 ng/ml Risk Stratification: <= 0.10 ng/ml Decreased Risk for Adverse Clinical Events. 0.10-1.50 ng/ml Increased Risk for Adverse Clinical Events. Evaluation of additional criterion and/or repeat testing in 2-6 hours is suggested to rule out myocardial damage. >= 1.50 ng/ml Indicative of Myocardial Injury. Lab Order: CARDIAC INJURY PROFILE; SPEC'M 10/13/16 18:49 Test: CPK CREATINE PHOSPHOKINASE; Value: 58; Range: 26-192; Units: U/L; Status: F Test: CK-MB VALUE MASS; Value: 1.9; Range: 0.0-3.6; Units: NG/ML; Status: F Test: MB/CK RELATIVE INDEX; Value: 3.27; Range: < OR =4; Status: F Test Note: ; DIAGNOSIS CRITERIA MMB ng/ml Relative Index (RI) NON-AMI < or = 5 N/A LANG ZONE > 5 < or = 4 AMI > 5 > 4 Lab Order: TROPONIN; SPEC'M 10/13/16 18:49 Test: TROPONIN I; Value: < 0.02; Range: < 0.10; Units: NG/ML; Status: F Test Note: ; Troponin I Reference Interval for [employer] LOCI: 99th Percentile= 0.00-0.045 ng/ml Risk Stratification: <= 0.10 ng/ml Decreased Risk for Adverse Clinical Events. 0.10-1.50 ng/ml Increased Risk for Adverse Clinical Events. Evaluation of additional criterion and/or repeat testing in 2-6 hours is suggested to rule out myocardial damage. >= 1.50 ng/ml Indicative of Myocardial Injury. 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; : 1935 Requested By: VA Hercules; Order Number: [id number] Reading MD: Inessa Hernandez; Measurements; Intervals [place]; Rate: 60 P: 199; WV: 204 QRS: 62; QRSD: 82 T: 80; QT: 411; QTc: 411; Interpretive Statements; ELECTRONIC ATRIAL PACEMAKER; ABNORMAL RHYTHM ECG; NSTTW ABNORMALITY; ; Electronically Signed On 10-13-2016 21:53:29 EST by Inessa Hernandez; Radiology Order: Chest, 2 View (pa\\E\\lat) Test: Chest, 2 View (pa\\E\\lat) REASON FOR EXAMINATION: Syncope; Chest two views; ; HISTORY: Syncope; ; Comparison: 07/23/2016; ; A calcified granuloma is present in the left upper lobe. The right lung is; clear. The heart is normal in size. The pulmonary vasculature is normal in; appearance. The bony structure is intact.; ; IMPRESSION: Old granulomatous disease.; ; ; Signed by; Modesto May MD 10/13/2016 12:17 P; Radiology Order: CT Head without contrast Test: CT Head without contrast REASON FOR EXAMINATION: LOC; CT HEAD WITHOUT CONTRAST:; ; HISTORY: Loss of consciousness.; ; COMPARISON: 07/23/2016.; ; Areas of decreased attentuation are present in the periventricular white matter.; This represents small vessel ischemic disease. There is no intraparenchymal; hemorrhage, mass, or midline shift. The ventricular system and cortical sulci; are dilated consistent with mild volume loss. There is no extracerebral; collection. There is no fracture. The visualized sinuses are clear.; ; IMPRESSION:; ; 1. Small vessel ischemic disease.; ; 2. Mild volume loss.; ; ; Signed by; Modesto May MD 10/13/2016 02:48 P; Outcome: 10/13 12:42 Decision to Hospitalize by Provider. br1 15:52 Discharge Assessment: Patient awake, alert and oriented x 3. No cognitive and/or mb9 functional deficits noted. Patient verbalized understanding of disposition instructions. patient administered narcotics - no. The following High Risk Discharge criteria are identified: None. Admitted to PCU accompanied by nurse, accompanied by tech. Condition: good Condition: stable Condition: improved. CT Study completed. Property :Personal belongings accompany Pt. 23:42 Patient left the ED. mgs Signatures: Dispatcher [employer] EDMS Yazmin Barry, Alignment Technician Unit lbd Deborah Elmore RN RN kpj Knapp, Jean, RN RN jmk Peters, Mary, RN RN mcp Barnhardt, Gloria, Reg Reg gb Isa Dick, Reg Reg lg Va Cooney MD MD br1 Aleshia Gray,RN RN aa3 Main Patiño,RN RN s Talib DelunaRN RN mb9 Coreen Ramírez, JACOB PICK UP DRIVER rs6 Chart Complete MTDD
== END 2016-10-14 10:50 | disposition home or self-care (01) ==
LOC: M ED 10:38 → M ED INP 13:42 → M PCU 23:52
PROVIDERS: ADMIT Internal Medicine; ATTEND Internal Medicine
DX: R55 Syncope and collapse (principal); I49.5 Sick sinus syndrome; Z95.0 Presence of cardiac pacemaker; H81.10 Benign paroxysmal vertigo, unspecified ear; K21.9 Gastro-esophageal reflux disease without esophagitis; M81.0 Age-related osteoporosis without current pathological fracture; F32.9 Major depressive disorder, single episode, unspecified; Z79.899 Other long term (current) drug therapy; Z88.1 Allergy status to other antibiotic agents; Z88.8 Allergy status to other drugs, medicaments and biological substances
CPT/HCPCS: 36415; 70450; 71020; 80048; 82550; 82553; 83735; 84484; 85025; 85027; 93005; 93041; 97161; 99285; G0378; G8978; G8979; G8980

== ENCOUNTER → 2016-12-30 | Outpatient (CLI) | payer MEDICARE ==
[~2016-12-30] MED LIST changes: +ATEN25TA PO; +FLUO10TA30 PO; +LISI2.5T3 PO; +MAGN250T2 PO; +PREDOPD OD; +VITA100066 PO; +VITMTA PO
--- NOTE | 2016-12-30 09:45 | REPMRS ---
Patient History The patient states she has not had a clinical breast exam in over a year. Patient is postmenopausal and has history of colorectal cancer at age 77. Family history of pancreatic cancer in sister and breast cancer in daughter at age 57. Benign radio exam breast specimen of the right breast, October 14, 2015. Benign stereotatic loc for ea lesion of the right breast, October 14, 2015. Benign lumpectomy of both breasts. Digital Mammo Screening Bilat: December 30, 2016 - Exam #: [id number] Bilateral CC and MLO view(s) were taken. Technologist: Mojgan Emmanuel, Technologist Prior study comparison: April 09, 2016, right breast digital mammo diagnostic unilateral performed at [facility]. August 19, 2015, right breast digital mammo diagnostic unilateral performed at [facility]. FINDINGS: The breast tissue is heterogeneously dense. This may lower the sensitivity of mammography. There has been no change in the appearance of the mammogram from the prior studies. There is a moderate amount of residual fibroglandular tissue which is fairly symmetric. There is no interval development of dominant mass, areas of architectural distortion, or clustered microcalcification typical of malignancy. ASSESSMENT: BI-RADS/ACR category 1 mammogram. Negative. Recommendation Routine screening mammogram in 1 year (for women over age 40). This mammogram was interpreted with the aid of an FDA-approved computer-aided dectection system. Electronically Signed By: Daniel Tyson MD 12/30/16 0944
== END ==
LOC: M RAD 07:45
PROVIDERS: ATTEND Family Medicine
DX: Z12.31 Encounter for screening mammogram for malignant neoplasm of breast (principal); R92.8 Other abnormal and inconclusive findings on diagnostic imaging of breast; Z78.0 Asymptomatic menopausal state; Z80.3 Family history of malignant neoplasm of breast

== ENCOUNTER → 2017-09-28 | Outpatient (CLI) | payer MEDICARE | LOC: M RAD 11:43 | DX: H02.824 Cysts of left upper eyelid (principal); H57.8 Other specified disorders of eye and adnexa | CPT/HCPCS: 70480 ==

== ENCOUNTER 2017-10-06 23:39 | Observation (INO) | payer MEDICARE ==
[2017-10-06] MEDS: SENOKOT S TAB PO ×2 (21:00)
[2017-10-07 00:24] LABS: HEMATOCRIT 35.1 % (36.0-47.0); HEMOGLOBIN 11.3 g/dl (12.0-16.0); MEAN CORPUSCULAR HEMOGLOBIN 28.8 pg (27.0-33.0); MEAN CORPUSCULAR HGB CONC 32.2 g/dl (32.0-36.5); MEAN CORPUSCULAR VOLUME 89.5 fl (80.0-96.0); RED BLOOD COUNT 3.92 10^6/uL (4.00-5.40); RED CELL DISTRIBUTION WIDTH 11.8 % (11.5-14.5); WHITE BLOOD COUNT 11.5 10^3/uL (4.0-10.0)
[2017-10-07 00:25] LABS: BASO % 0.3 % (0.0-1.0); EOS # 0.1 10^3/uL (0.0-0.50); IMMATURE GRANULOCYTE # 0.1 10^3/uL (0-0); IMMATURE GRANULOCYTE % 0.5 % (0-0); LYMPH # 1.3 10^3/uL (1.5-4.5); LYMPH % 11.7 % (24.0-44.0); MONO % 8.6 % (0.0-5.0); NEUTROPHILS # 8.9 10^3/uL (1.8-7.7); NEUTROPHILS % 77.9 % (36.0-66.0); PLATELET COUNT, AUTOMATED 241 10^3/uL (150-450)
[2017-10-07 00:39] LABS: INR 1.11; PROTHROMBIN TIME 14.5 SECONDS (12.4-14.5)
[2017-10-07 00:40] LABS: PARTIAL THROMBOPLASTIN TIME 27.4 SECONDS (26.8-37.9)
[2017-10-07 00:50] LABS: ANION GAP 6 MEQ/L (8-16); BLOOD UREA NITROGEN 18 MG/DL (7-18); CALCIUM LEVEL 9.1 MG/DL (8.8-10.2); CARBON DIOXIDE LEVEL 29 MEQ/L (21-32); CHLORIDE LEVEL 105 MEQ/L (98-107); CPK CREATINE PHOSPHOKINASE 55 U/L (26-192); CREATININE FOR GFR 0.74 MG/DL (0.55-1.30); FREE T4 1.08 NG/DL (0.76-1.46); GLOMERULAR FILTRATION RATE > 60.0 (>32); GLUCOSE, FASTING 170 MG/DL (70-100); MAGNESIUM LEVEL 1.9 MG/DL (1.8-2.4); SODIUM LEVEL 140 MEQ/L (136-145); TROPONIN I < 0.02 NG/ML (< 0.10)
[2017-10-07 00:55] LABS: CK-MB VALUE MASS 1.4 NG/ML (0.0-3.6); MB/CK RELATIVE INDEX 2.54 (< OR =4)
[2017-10-07] MEDS ORDERED: ONDANSETRON 4MG/2ML VIAL (J2405) IV ×2 (01:30)
[2017-10-07] MEDS: BISACODYL 5 MG TAB PO ×2 (01:36)
[2017-10-07] MEDS ORDERED: METAL LOCK LOOP XX ×2 (03:07)
[2017-10-07] MEDS: ATENOLOL 25 MG TAB PO ×2 (08:51)
[2017-10-07] MEDS: SENOKOT S TAB PO ×4 (08:52→20:06)
[2017-10-07 10:46] LABS: CK-MB VALUE MASS 1.2 NG/ML (0.0-3.6); CPK CREATINE PHOSPHOKINASE 43 U/L (26-192); MB/CK RELATIVE INDEX 2.79 (< OR =4); TROPONIN I < 0.02 NG/ML (< 0.10)
[2017-10-07 15:03] LABS: BEDSIDE GLUCOSE 155 MG/DL (83-110)
[2017-10-07] MEDS ORDERED: SLF 3 ML SYR IV ×2 (16:15)
[2017-10-07] MEDS: ATENOLOL 12.5MG PER 1/2 TABLET PO ×2 (17:50)
[2017-10-07 18:15] LABS: CK-MB VALUE MASS 1.8 NG/ML (0.0-3.6); CPK CREATINE PHOSPHOKINASE 74 U/L (26-192); MB/CK RELATIVE INDEX 2.43 (< OR =4); TROPONIN I < 0.02 NG/ML (< 0.10)
[2017-10-07] MEDS: SLF 3 ML SYR IV ×2 (21:52)
[2017-10-08] MEDS: SLF 3 ML SYR IV ×6 (06:00→22:00)
[2017-10-08 08:02] LABS: BASO # 0.1 10^3/uL (0.0-0.2); BASO % 0.4 % (0.0-1.0); EOS # 0.2 10^3/uL (0.0-0.50); EOS % 1.5 % (0.0-3.0); HEMATOCRIT 36.3 % (36.0-47.0); HEMOGLOBIN 11.7 g/dl (12.0-16.0); IMMATURE GRANULOCYTE # 0.1 10^3/uL (0-0); IMMATURE GRANULOCYTE % 0.4 % (0-0); LYMPH # 2.1 10^3/uL (1.5-4.5); LYMPH % 13.7 % (24.0-44.0); MEAN CORPUSCULAR HEMOGLOBIN 28.9 pg (27.0-33.0); MEAN CORPUSCULAR HGB CONC 32.2 g/dl (32.0-36.5); MEAN CORPUSCULAR VOLUME 89.6 fl (80.0-96.0); MONO # 1.4 10^3/uL (0.0-0.8); MONO % 9.1 % (0.0-5.0); NEUTROPHILS # 11.6 10^3/uL (1.8-7.7); NEUTROPHILS % 74.9 % (36.0-66.0); PLATELET COUNT, AUTOMATED 270 10^3/uL (150-450); RED BLOOD COUNT 4.05 10^6/uL (4.00-5.40); RED CELL DISTRIBUTION WIDTH 11.9 % (11.5-14.5); WHITE BLOOD COUNT 15.4 10^3/uL (4.0-10.0)
[2017-10-08 08:21] LABS: ANION GAP 5 MEQ/L (8-16); BLOOD UREA NITROGEN 24 MG/DL (7-18); C REACTIVE PROTEIN QUANTITATIV 7.92 MG/DL (0.00-0.30); CALCIUM LEVEL 8.5 MG/DL (8.8-10.2); CARBON DIOXIDE LEVEL 29 MEQ/L (21-32); CHLORIDE LEVEL 102 MEQ/L (98-107); CREATININE FOR GFR 0.89 MG/DL (0.55-1.30); GLOMERULAR FILTRATION RATE > 60.0 (>32); GLUCOSE, FASTING 167 MG/DL (70-100); POTASSIUM SERUM 4.1 MEQ/L (3.5-5.1); SODIUM LEVEL 136 MEQ/L (136-145)
[2017-10-08] MEDS: ATENOLOL 25 MG TAB PO ×2 (08:45)
[2017-10-08] MEDS: SENOKOT S TAB PO ×4 (08:45→21:00)
[2017-10-09 00:17] LABS: KETONE, URINE AUTO RFX NEGATIVE (NEGATIVE); MUCUS, URINE RFX SMALL (NEGATIVE); NITRITE, URINE AUTO RFX NEGATIVE (NEGATIVE); RBC, URINE AUTO RFX 1 /HPF (0-3); SPECIFIC GRAVITY UR AUTO RFX 1.015 (1.002-1.035); SQUAM EPITHELIAL CELL UR AURFX 0 /HPF (0-6); WBC, URINE AUTO RFX 6 /HPF (0-3)
[2017-10-09 01:04] LABS: LEUKOCYTE ESTERASE UR AUTO RFX 1+ (NEGATIVE)
[2017-10-09] MEDS: SLF 3 ML SYR IV ×2 (06:00)
[2017-10-09 07:55] LABS: BASO % 0.4 % (0.0-1.0); EOS # 0.4 10^3/uL (0.0-0.50); EOS % 4.2 % (0.0-3.0); HEMATOCRIT 32.1 % (36.0-47.0); HEMOGLOBIN 10.4 g/dl (12.0-16.0); IMMATURE GRANULOCYTE % 0.2 % (0-0); LYMPH # 1.7 10^3/uL (1.5-4.5); LYMPH % 16.7 % (24.0-44.0); MEAN CORPUSCULAR HEMOGLOBIN 28.7 pg (27.0-33.0); MEAN CORPUSCULAR HGB CONC 32.4 g/dl (32.0-36.5); MEAN CORPUSCULAR VOLUME 88.7 fl (80.0-96.0); MONO % 9.6 % (0.0-5.0); NEUTROPHILS # 7.1 10^3/uL (1.8-7.7); NEUTROPHILS % 68.9 % (36.0-66.0); PLATELET COUNT, AUTOMATED 233 10^3/uL (150-450); RED BLOOD COUNT 3.62 10^6/uL (4.00-5.40); RED CELL DISTRIBUTION WIDTH 11.8 % (11.5-14.5); WHITE BLOOD COUNT 10.3 10^3/uL (4.0-10.0)
[2017-10-09 08:09] LABS: ANION GAP 5 MEQ/L (8-16); BLOOD UREA NITROGEN 19 MG/DL (7-18); CALCIUM LEVEL 8.6 MG/DL (8.8-10.2); CARBON DIOXIDE LEVEL 30 MEQ/L (21-32); CHLORIDE LEVEL 107 MEQ/L (98-107); CREATININE FOR GFR 0.69 MG/DL (0.55-1.30); GLOMERULAR FILTRATION RATE > 60.0 (>32); GLUCOSE, FASTING 122 MG/DL (70-100); MAGNESIUM LEVEL 2.2 MG/DL (1.8-2.4); POTASSIUM SERUM 4.1 MEQ/L (3.5-5.1); SODIUM LEVEL 142 MEQ/L (136-145)
[2017-10-09] MEDS: SENOKOT S TAB PO ×2 (08:29)
[2017-10-09] MEDS: ATENOLOL 25 MG TAB PO ×2 (08:29)
== END 2017-10-09 10:40 | disposition home or self-care (01) ==
LOC: M ED 23:39 → M ED INP 23:40 → M PCU 10-07 15:45
PROVIDERS: Internal Medicine Nephrology
DX: R55 Syncope and collapse (principal); H81.10 Benign paroxysmal vertigo, unspecified ear; I11.0 Hypertensive heart disease with heart failure; F41.9 Anxiety disorder, unspecified; F32.9 Major depressive disorder, single episode, unspecified; I49.5 Sick sinus syndrome; Z95.0 Presence of cardiac pacemaker; R50.9 Fever, unspecified; I50.30 Unspecified diastolic (congestive) heart failure; R53.83 Other fatigue; R01.1 Cardiac murmur, unspecified; E78.9 Disorder of lipoprotein metabolism, unspecified; Z79.899 Other long term (current) drug therapy; Z91.018 Allergy to other foods; Z88.8 Allergy status to other drugs, medicaments and biological substances; Z88.1 Allergy status to other antibiotic agents; Z85.038 Personal history of other malignant neoplasm of large intestine
CPT/HCPCS: 71046

== ENCOUNTER → 2017-10-18 | Outpatient (REF) | payer MEDICARE | LOC: M LAB REF 17:37 | DX: R79.82 Elevated C-reactive protein (CRP) (principal) | CPT/HCPCS: 86140 ==

== ENCOUNTER 2018-01-04 05:09 | Emergency (ER) | payer MEDICARE ==
[2018-01-04 06:46] LABS: BASO % 0.3 % (0.0-1.0); EOS # 0.5 10^3/uL (0.0-0.50); EOS % 7.5 % (0.0-3.0); HEMATOCRIT 33.5 % (36.0-47.0); HEMOGLOBIN 10.3 g/dl (12.0-15.5); IMMATURE GRANULOCYTE % 0.5 % (0-3.0); MEAN CORPUSCULAR HEMOGLOBIN 26.6 pg (27.0-33.0); MEAN CORPUSCULAR HGB CONC 30.7 g/dl (32.0-36.5); MEAN CORPUSCULAR VOLUME 86.6 fl (80.0-96.0); MONO # 0.5 10^3/uL (0.0-0.8); MONO % 8.5 % (0.0-5.0); NEUTROPHILS # 3.1 10^3/uL (1.8-7.7); NEUTROPHILS % 50.2 % (36.0-66.0); PLATELET COUNT, AUTOMATED 269 10^3/uL (150-450); RED BLOOD COUNT 3.87 10^6/uL (4.00-5.40); RED CELL DISTRIBUTION WIDTH 13.6 % (11.5-14.5); WHITE BLOOD COUNT 6.2 10^3/uL (4.0-10.0)
[2018-01-04 07:01] LABS: ANION GAP 5 MEQ/L (8-16); BLOOD UREA NITROGEN 21 MG/DL (7-18); CARBON DIOXIDE LEVEL 27 MEQ/L (21-32); CHLORIDE LEVEL 109 MEQ/L (98-107); CPK CREATINE PHOSPHOKINASE 36 U/L (26-192); CREATININE FOR GFR 0.79 MG/DL (0.55-1.30); GLOMERULAR FILTRATION RATE > 60.0 (>32); GLUCOSE, FASTING 123 MG/DL (70-100); SODIUM LEVEL 141 MEQ/L (136-145); TROPONIN I < 0.02 NG/ML (< 0.10)
[2018-01-04 07:06] LABS: CK-MB VALUE MASS < 1.0 NG/ML (<3.6); MB/CK RELATIVE INDEX 2.77 (< OR =4)
[2018-01-04 12:59] LABS: CK-MB VALUE MASS < 1.0 NG/ML (<3.6); CPK CREATINE PHOSPHOKINASE 36 U/L (26-192); MB/CK RELATIVE INDEX 2.77 (< OR =4); TROPONIN I < 0.02 NG/ML (< 0.10)
== END 2018-01-04 13:28 | disposition home or self-care (01) ==
LOC: M ED 05:09
DX: R55 Syncope and collapse (principal); R07.9 Chest pain, unspecified; R06.02 Shortness of breath; I10 Essential (primary) hypertension; Z95.0 Presence of cardiac pacemaker; C19 Malignant neoplasm of rectosigmoid junction; Z88.1 Allergy status to other antibiotic agents; Z88.8 Allergy status to other drugs, medicaments and biological substances; Z91.018 Allergy to other foods; Z79.899 Other long term (current) drug therapy
CPT/HCPCS: 71045

== ENCOUNTER → 2018-02-26 | Outpatient (CLI) | payer MEDICARE, OTHER | LOC: M WUC 14:39 | DX: M43.10 Spondylolisthesis, site unspecified (principal); Z79.899 Other long term (current) drug therapy | CPT/HCPCS: 87088; 87186 ==

== ENCOUNTER → 2018-03-06 | Outpatient (REF) | payer MEDICARE, OTHER | LOC: M LAB REF 16:48 | DX: M54.5 Low back pain (principal); R39.9 Unspecified symptoms and signs involving the genitourinary system | CPT/HCPCS: 87086 ==

== ENCOUNTER → 2018-04-28 | Outpatient (CLI) | payer MEDICARE | LOC: M WHC 09:31 | DX: Z12.31 Encounter for screening mammogram for malignant neoplasm of breast (principal) | CPT/HCPCS: 77067 ==

== ENCOUNTER → 2018-05-23 | Outpatient (REF) | payer MEDICARE ==
[2018-05-23 14:40] LABS: CARCINOEMBRYONIC ANTIGEN 1.4 NG/ML (<2.5)
== END ==
LOC: M LAB REF 13:47
DX: Z85.038 Personal history of other malignant neoplasm of large intestine (principal); C18.4 Malignant neoplasm of transverse colon
CPT/HCPCS: 82378

== ENCOUNTER → 2018-06-22 | Outpatient (CLI) | payer MEDICARE | LOC: M RAD 07:52 | DX: M12.9 Arthropathy, unspecified (principal); M54.6 Pain in thoracic spine | CPT/HCPCS: 78315 ==

== ENCOUNTER 2018-12-01 09:34 | Emergency (ER) | payer MEDICARE ==
[~2018-12-01] VITALS: Ht 167.6 cm; Wt 56.4 kg
[~2018-12-01 09:34] MED LIST changes: +LISI-1046 PO; -LISI2.5T3 PO; -MAGN250T2 PO; +MAGN250T7 PO; +MAGN400T PO; +SYST1SOL OU
[2018-12-01] MEDS ORDERED: NS 500 ML IV ONE (10:15)
[2018-12-01 10:46] LABS: BASO % 0.4 % (0.0-1.0); EOS # 0.1 10^3/uL (0.0-0.50); EOS % 1.6 % (0.0-3.0); HEMATOCRIT 37.1 % (36.0-47.0); HEMOGLOBIN 12.1 g/dl (12.0-15.5); LYMPH # 1.6 10^3/uL (1.5-4.5); LYMPH % 23.3 % (24.0-44.0); MEAN CORPUSCULAR HGB CONC 32.6 g/dl (32.0-36.5); MEAN CORPUSCULAR VOLUME 92.1 fl (80.0-96.0); MONO # 0.6 10^3/uL (0.0-0.8); MONO % 8.7 % (0.0-5.0); NEUTROPHILS # 4.5 10^3/uL (1.8-7.7); NEUTROPHILS % 65.6 % (36.0-66.0); PLATELET COUNT, AUTOMATED 198 10^3/uL (150-450); RED BLOOD COUNT 4.03 10^6/uL (4.00-5.40); WHITE BLOOD COUNT 6.9 10^3/uL (4.0-10.0)
[2018-12-01 11:06] LABS: BLOOD UREA NITROGEN 23 MG/DL (7-18); CALCIUM LEVEL 9.2 MG/DL (8.8-10.2); CARBON DIOXIDE LEVEL 29 MEQ/L (21-32); CHLORIDE LEVEL 107 MEQ/L (98-107); CPK CREATINE PHOSPHOKINASE 58 U/L (26-192); CREATININE FOR GFR 0.94 MG/DL (0.55-1.30); GLOMERULAR FILTRATION RATE > 60.0 (>32); GLUCOSE, FASTING 136 MG/DL (70-100); MB/CK RELATIVE INDEX 3.62 (< OR =4); POTASSIUM SERUM 4.5 MEQ/L (3.5-5.1); SODIUM LEVEL 142 MEQ/L (136-145); TROPONIN I < 0.02 NG/ML (< 0.10)
[2018-12-01 11:59] VITALS: BP 194/81
--- NOTE | 2018-12-01 19:37 | ECGEPIP ---
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
== END 2018-12-01 12:09 | disposition home or self-care (01) ==
LOC: M ED 09:34
DX: R55 Syncope and collapse (principal); Z95.0 Presence of cardiac pacemaker; R94.31 Abnormal electrocardiogram [ECG] [EKG]; I10 Essential (primary) hypertension; F41.9 Anxiety disorder, unspecified; F32.9 Major depressive disorder, single episode, unspecified; Z85.038 Personal history of other malignant neoplasm of large intestine; Z79.899 Other long term (current) drug therapy; Z88.1 Allergy status to other antibiotic agents; Z88.8 Allergy status to other drugs, medicaments and biological substances; Z91.018 Allergy to other foods

== ENCOUNTER → 2018-12-12 | Outpatient (CLI) | payer MEDICARE ==
[~2018-12-12] MED LIST changes: +GASTROGRAFIN SOLUTION 30ML (Q9963) As Ordered ONE; +ISOVUE-370 76% 100ML VIAL (Q9967) As Ordered ONE
--- NOTE | 2018-12-12 14:29 | REP ---
CT of the chest with IV contrast: Comparison is 11/16/2017. Studies performed for restaging of colon carcinoma. There are no acute infiltrates. No pleural effusions. There are occasional calcified granulomas in the lung quinn bilaterally. These are unchanged. There are a few tiny 2-3 mm noncalcified nodules in the upper lobes bilaterally, unchanged, likely noncalcified granulomas. There are no new lung nodules. There are no enlarging lung nodules. There is no mediastinal or hilar lymph enlargement. There are mediastinal and bilateral hilar calcified granulomas. There is no axillary lymph node enlargement. Thoracic aorta is unremarkable. Cardiac size is normal. There is a pacemaker, unchanged. There are no lytic, blastic or destructive skeletal changes. There is a Schmorl's node and grade 1 compression deformity of the T9 vertebral body superior endplate, unchanged. There is grade 1 compression deformity of the T5 superior endplate, unchanged. There is a Schmorl's node in the superior endplate of the T2 vertebral body. This is unchanged. Impression: No evidence of adenopathy or metastatic disease. Chronic granulomas. No acute infiltrates or effusions. Chronic changes in the thoracic spine. Electronically Signed by Daniel Mcintosh MD 12/12/2018 02:20 P
--- NOTE | 2018-12-12 15:10 | REP ---
CT of the abdomen and pelvis with IV and oral contrast for restaging of colon carcinoma: Comparison is 11/16/2017. The patient has clinical history of partial colon resection, cholecystectomy and appendectomy. Scanning is initially performed during the portal venous phase of enhancement and is repeated during the delayed equilibrium phase of enhancement. On the comparison study there was a circumferential anastomotic suture line in the proximal transverse colon and there was colonic wall thickening in the distal transverse colon. On the study today there is the anastomotic suture line in the proximal transverse colon, unchanged. Additionally, there is a new circumferential anastomotic suture line in the distal transverse colon as an interval change. The previously identified marked wall thickening is no longer identified. However, there is mild wall thickening in the location of the surgical suture line measuring up to 9 mm, increased from the remainder of the colon. This is nonspecific and could represent postsurgical change or could represent recurrent mural neoplasm. No hepatic metastases are identified. There are surgical clips in the gallbladder fossa. There is mild dilatation of intrahepatic biliary ducts, likely secondary to a cholecystectomy. This is unchanged. The pancreas and spleen are normal size and unremarkable. There is no adrenal mass. There are bilateral renal simple cysts, unchanged. The kidneys are otherwise unremarkable. The abdominal aorta is unremarkable. There is no retroperitoneal adenopathy. There is no mesenteric adenopathy. There is no ascites. Pelvis: There is no ascites. There is an enlarged right iliac node measuring 17 mm in diameter. There is no other pelvic adenopathy. The uterus and adnexa are unremarkable except except for moderately dilated gonadal veins bilaterally. This is unchanged and may represent pelvic congestion. The bladder is unremarkable. There are no lytic, blastic or destructive skeletal changes. There is degenerative disc disease with disc vacuum phenomenon at L5 S1. There are occasional lumbar vertebral Schmorl's nodes. Impression: There has been interval partial colon resection of the distal transverse colon. There is persisting wall thickening of the distal transverse colon at the area of the resection, however, significantly decreased from the presurgical study. A wall thickening measures up to 9 mm and is of uncertain significance, postsurgical versus tumor recurrence. There is a single enlarged pelvic node on the right as described. There is no other lymphadenopathy. There are dilated gonadal veins in the pelvis bilaterally, possibly pelvic congestion, unchanged. No ascites. No evidence of metastatic disease. Electronically Signed by Daniel Mcintosh MD 12/12/2018 03:02 P
== END ==
LOC: M RAD 10:44
PROVIDERS: ATTEND Internal Medicine Medical Oncology
DX: C18.9 Malignant neoplasm of colon, unspecified (principal)
CPT/HCPCS: 71260; 74177; Q9963; Q9967

== ENCOUNTER → 2019-01-03 | Outpatient (CLI) | payer MEDICARE ==
[~2019-01-03] MED LIST changes: -GASTROGRAFIN SOLUTION 30ML (Q9963) As Ordered ONE; -ISOVUE-370 76% 100ML VIAL (Q9967) As Ordered ONE
--- NOTE | 2019-01-05 09:53 | REP ---
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 Status post colectomy. The patient declined adjuvant chemotherapy. There is a remote prior history of stage one colon carcinoma post resection in the year 1999. COMPARISONS: Comparison CT studies of the chest abdomen and pelvis December 12, 2018. TECHNIQUE: 60 minutes following the intravenous injection of a 8.80 mCi dose of F-18 FDG, three-dimensional PET scintigraphy is acquired from the skull base to the proximal thighs. Triplanar noncontrast CT scanning is acquired through the same anatomic range for attenuation correction, and image registration with scan parameters optimized to minimize radiation exposure to the patient. PET scintigraphy and CT datasets were fused and displayed on a workstation with multiplanar and projection display capability. PET/CT FINDINGS: There is a mildly hypermetabolic lower pole left thyroid nodule with maximum standard uptake value of 5.29. It measures 14 mm in greatest diameter on coronal multiplanar re-formation imaged. Head and neck soft tissues are otherwise unremarkable. There is a left-sided pacemaker noted. No abnormal hypermetabolic uptake with is seen within the thorax. There is no abnormal hypermetabolic uptake seen within the liver. Gallbladder is surgically absent. There is no abnormal lymph node uptake. There is no evidence of abnormal colonic mural thickening near either of the bowel anastomoses. The previously noted mural thickening is not seen today. No abnormal abdominal or pelvic hypermetabolic uptake is noted. A normal appearing ovary is noted in the right iliac region, situated somewhat high in the pelvis but otherwise unremarkable. No abnormal pelvic hypermetabolic uptake is seen. IMPRESSION: Incidental mildly hypermetabolic nodule in the left thyroid lobe. No other abnormal hypermetabolic uptake is seen. There is no evidence of abnormal bowel wall thickening or intra-abdominal or pelvic adenopathy. Electronically Signed by Sreedhar Scruggs MD 01/05/2019 10:40 A
== END ==
LOC: M PLARAD 08:06
PROVIDERS: ATTEND Internal Medicine Medical Oncology
DX: E04.1 Nontoxic single thyroid nodule (principal); Z90.49 Acquired absence of other specified parts of digestive tract; Z85.038 Personal history of other malignant neoplasm of large intestine
CPT/HCPCS: 78815; A9552

== ENCOUNTER → 2019-02-26 | Outpatient (CLI) | payer MEDICARE ==
--- NOTE | 2019-02-26 16:23 | REP ---
Duplex extremity venous ultrasound: Left lower extremity. History: Left leg pain. Findings: The deep veins are anechoic and fully compressible from the groin to the popliteal fossa in the left lower extremity. Color flow imaging is homogeneous. Spectral Doppler interrogation demonstrates intact respiratory variation in flow and normal manual augmentation of flow. There is no evidence of deep vein thrombosis. Impression: Negative left lower extremity duplex venous ultrasound. No evidence of deep vein thrombosis. Electronically Signed by Sreedhar Scruggs MD 02/26/2019 04:43 P
== END ==
LOC: M RAD 15:28
PROVIDERS: ATTEND Physical Medicine & Rehabilitation
DX: M79.605 Pain in left leg (principal)

== ENCOUNTER → 2019-03-22 | Outpatient (REF) | payer MEDICARE | LOC: M LAB REF 16:23 | PROVIDERS: ATTEND Internal Medicine Endocrinology, Diabetes & Metabolism | DX: E04.1 Nontoxic single thyroid nodule (principal) ==

== ENCOUNTER → 2019-06-27 | Outpatient (CLI) | payer MEDICARE ==
[~2019-06-27] MED LIST changes: -MAGN400T PO; +MAGN400T3 PO
--- NOTE | 2019-06-27 09:33 | REPMRS ---
Patient History The patient states she has not had a clinical breast exam in over a year. Patient is postmenopausal and has history of colorectal cancer at age 77. Family history of breast cancer at age 57 in daughter, pancreatic cancer in sister, ovarian cancer at age 50 or over in niece. Benign radio exam breast specimen of the right breast, October 14, 2015. Benign stereotatic loc for ea lesion of the right breast, October 14, 2015. Benign lumpectomy of both breasts. No Hormone Replacement Therapy 3D TOMOSYNTHESIS WAS PERFORMED. The [facility] lifetime risk for breast cancer is 1.0%. Digital Woman Screen Mammo: June 27, 2019 - Exam #: [id number] Bilateral CC and MLO view(s) were taken. Technologist: Krystyna Jeffries Technologist Prior study comparison: April 28, 2018, bilateral digital woman screen mammo performed at [facility]. December 30, 2016, bilateral digital mammo screening bilat, performed at [facility]. FINDINGS: The breast tissue is heterogeneously dense. This may lower the sensitivity of mammography. There has been no change in the appearance of the mammogram from the prior studies. There is a moderate amount of residual fibroglandular tissue which is fairly symmetric. There is no interval development of dominant mass, areas of architectural distortion, or clustered microcalcification typical of malignancy. Assessment: BI-RADS/ACR category 1 mammogram. Negative Mammogram. Recommendation Routine screening mammogram in 1 year (for women over age 40). This mammogram was interpreted with the aid of an FDA-approved computer-aided dectection system. Electronically Signed By: Daniel Tyson MD 06/27/19 [id number]
== END ==
LOC: M WHC 07:42
PROVIDERS: ATTEND Nurse Practitioner Adult Health
DX: Z12.31 Encounter for screening mammogram for malignant neoplasm of breast (principal); Z78.0 Asymptomatic menopausal state; Z85.038 Personal history of other malignant neoplasm of large intestine; Z80.3 Family history of malignant neoplasm of breast; Z80.0 Family history of malignant neoplasm of digestive organs; Z86.018 Personal history of other benign neoplasm

== ENCOUNTER → 2019-07-24 | Outpatient (REF) | payer MEDICARE | LOC: M LAB REF 16:47 | PROVIDERS: ATTEND Nurse Practitioner Adult Health | DX: R20.1 Hypoesthesia of skin (principal) ==

== ENCOUNTER → 2019-10-23 | Outpatient (CLI) | payer MEDICARE ==
[~2019-10-23] MED LIST changes: +GASTROGRAFIN SOLUTION 30ML (Q9963) As Ordered ONE; +ISOVUE-370 76% 100ML VIAL (Q9967) As Ordered ONE
--- NOTE | 2019-10-23 18:18 | REP ---
Clinical: Stage II colon cancer. Surveillance. Technique: Axial contrast enhanced images from the thoracic inlet to the upper abdomen with coronal and sagittal re-formations using 100 ml Isovue 370 intravenous contrast material. Comparison: 12/12/2018. Findings: Chronic age-related interstitial changes and bronchiectasis are again noted along with few scattered calcified granulomas and lymph nodes. A single 5 mm noncalcified subpleural nodule along the lateral aspect of the left lower lobe remains stable. No further nodule, consolidation or mass. No effusion. No pneumothorax. Tracheobronchial tree is relatively patent. No significant adenopathy. Thoracic aorta, pulmonary vasculature and heart/pericardium are relatively normal. No pericardial effusion. Small left thyroid nodule noted. Skeletal structures are intact without focal abnormality. Impression: 1. Evidence for prior granulomatous disease. 2. Stable noncalcified subpleural nodule in the left lower lobe. 3. No evidence for metastatic disease or acute process. 4. Small left thyroid nodule. Electronically Signed by Brett Rose MD 10/23/2019 06:09 P
--- NOTE | 2019-10-23 18:21 | REP ---
Clinical: Stage II colon cancer. Surveillance. Technique: Axial contrast enhanced images from the lung bases to the pubic symphysis with coronal and sagittal re-formations using oral (per protocol) and 100 ml Isovue 370 intravenous contrast material. Comparison: 12/12/2018. Findings: Evidence for prior cholecystectomy with compensatory a diabetic and extrahepatic biliary ductal dilatation. Liver is without significant focal abnormality. Subcentimeter cyst in the posterior segment right hepatic lobe noted. Spleen, pancreas, and bilateral adrenal glands are normal. Kidneys demonstrate stable bilateral cysts. Evaluation of the enteric system demonstrates no obstruction or perforation. Postsurgical changes at the level of the cecum and transverse colon noted without obvious acute findings. Sigmoid diverticulosis noted without acute diverticulitis. Pelvis demonstrates normal bladder and age-appropriate uterus/adnexa. No ascites. No free air. No adenopathy. Atherosclerotic changes to the aorta and vasculature noted without aneurysm or dissection. Musculoskeletal structures demonstrate degenerative changes without focal abnormality. Impression: 1. Cholecystectomy. 2. Bilateral renal cysts. 3. No evidence for recurrence, metastatic disease or mass lesion within the abdomen/pelvis. No ascites, focal inflammatory stranding, or adenopathy. Electronically Signed by Brett Rose MD 10/23/2019 06:13 P
== END ==
LOC: M RAD 15:53
PROVIDERS: ATTEND Internal Medicine Medical Oncology
DX: C18.9 Malignant neoplasm of colon, unspecified (principal)
CPT/HCPCS: 71260; 74177; Q9963; Q9967

== ENCOUNTER → 2020-01-07 | Outpatient (CLI) | payer MEDICARE ==
[~2020-01-07] MED LIST changes: -GASTROGRAFIN SOLUTION 30ML (Q9963) As Ordered ONE; -ISOVUE-370 76% 100ML VIAL (Q9967) As Ordered ONE; -LISI-1046 PO; +LISI2.5T2 PO
[2020-01-07 11:17] LABS: BLOOD UREA NITROGEN 20 MG/DL (7-18); CREATININE FOR GFR 0.93 MG/DL (0.55-1.30); GLOMERULAR FILTRATION RATE > 60.0 (>32)
== END ==
LOC: M LAB 10:18
PROVIDERS: ATTEND Otolaryngology
DX: H90.3 Sensorineural hearing loss, bilateral (principal)

== ENCOUNTER → 2020-01-09 | Outpatient (CLI) | payer MEDICARE ==
[~2020-01-09] MED LIST changes: +LISI-1046 PO; -LISI2.5T2 PO
--- NOTE | 2020-01-09 11:08 | REP ---
PETROUS BONE, INTERNAL AUDITORY CANAL CT STUDY WITHOUT CONTRAST: HISTORY: Sensorineural hearing loss lateral. Comparison CT study is from September 28, 2017. TECHNIQUE: Helical scanning is acquired and 1 mm axial images are reformatted. Coronal and sagittal bone targeted magnified views are reformatted. FINDINGS: Mastoid aeration is normal bilaterally. Internal auditory canals are normal in size and shape. Vestibular and cochlear apparatus appear intact. Middle ear cavities are aerated bilaterally. No bony erosive changes seen. Middle ear ossicles are unremarkable and symmetric. External auditory canals are unremarkable. The other visualized paranasal sinuses are clear. Vascular calcification is noted in the internal carotid arteries at the skull base bilaterally. Visualized intracranial structures are unremarkable apart from mild generalized volume loss. IMPRESSION: No petrous bone abnormality noted. Unremarkable internal auditory canal CT study. Electronically Signed by Sreedhar Scruggs MD 01/09/2020 03:19 P
== END ==
LOC: M RAD 10:03
PROVIDERS: ATTEND Otolaryngology
DX: H90.3 Sensorineural hearing loss, bilateral (principal)

== ENCOUNTER → 2020-08-07 | Outpatient (CLI) | payer MEDICARE ==
[~2020-08-07] MED LIST changes: +GASTROGRAFIN SOLUTION 30ML (Q9963) As Ordered ONE; +ISOVUE-370 76% 100ML VIAL As Ordered ONE; -LISI-1046 PO; +LISI2.5T2 PO
--- NOTE | 2020-08-07 15:48 | REP ---
INDICATION: UNSPECIFIED ABDOMINAL PAIN. COMPARISON: 10/23/2019 TECHNIQUE: 100 cc Isovue 370 and oral bowel preparatory contrast administration FINDINGS: The pre contrast enhanced portion of the examination shows tiny bilateral nonobstructing nephroliths. Since there are no pre contrast-enhanced images from the prior exam to review I cannot state with certainty whether not these were present. Hepatic and splenic densities are within normal limits. Surgical clips are again seen in the gallbladder fossa from previous cholecystectomy. The contrast-enhanced portion examination shows no enhancing hepatic lesions. The spleen, pancreas, adrenal glands, and kidneys are otherwise unchanged. Stable bilateral renal cysts are again noted. The abdominal aorta and para-regions are unchanged. No mass or adenopathy has developed. There is no significant change in the appearance of the bowel loops or the mesenteries. There is no free fluid or free air. There is no evidence of a mass or adenopathy. There is no significant change in appearance of the imaged osseous structures. There is a grade 1/grade 2 L4 upon L5 spondylolisthesis status quo. The lung bases are unchanged compared to prior chest CT of 10/23/2019. IMPRESSION: 1. Tiny bilateral likely incidental nephroliths. 2. No evidence of acute intra-abdominal or intrapelvic disease. 3. Chronic changes and other findings as described above. <Electronically signed by Lenard Ortiz > 08/07/20 [id number]
== END ==
LOC: M RAD 11:58
PROVIDERS: ATTEND Nurse Practitioner Adult Health
DX: R10.9 Unspecified abdominal pain (principal); N20.0 Calculus of kidney; N28.1 Cyst of kidney, acquired; M43.16 Spondylolisthesis, lumbar region
CPT/HCPCS: 74178; Q9963; Q9967

== ENCOUNTER → 2020-08-14 | Outpatient (REF) | payer MEDICARE ==
[~2020-08-14] MED LIST changes: -GASTROGRAFIN SOLUTION 30ML (Q9963) As Ordered ONE; -ISOVUE-370 76% 100ML VIAL As Ordered ONE
[2020-08-14 15:20] LABS: ATYPICAL LYMPH 1 % (0-5); LYMPHOCYTES 8 % (16-44); MONOCYTES 1 % (0-5); NEUTROPHILS 84 % (28-66)
[2020-08-14 15:22] LABS: PLATELET ESTIMATE NORMAL (NORMAL)
== END ==
LOC: M LAB REF 12:36
PROVIDERS: ATTEND Physician Assistant Medical
DX: D72.9 Disorder of white blood cells, unspecified (principal)

== ENCOUNTER → 2020-10-30 | Outpatient (CLI) | payer MEDICARE ==
[~2020-10-30] MED LIST changes: +D31000TA2 PO; +ISOVUE-370 76% 100ML VIAL As Ordered ONE; +NORV5TAB PO
--- NOTE | 2020-10-30 15:27 | REP ---
INDICATION: COLON CA SURVEILLENCE. COMPARISON: Comparison CT study October 23, 2019 and December 12, 2018.. TECHNIQUE: Helical scanning is acquired following the intravenous injection of 75 mL of Isovue 370. Axial 3 mm images re-formatted. Coronal and sagittal MPR and coronal MIP images are generated. FINDINGS: Digital preliminary mixer pigment radiograph again demonstrates a multilead pacemaker in the right heart view of the left side. Lung quinn are well inflated. Axial CT images demonstrate scattered granulomatous calcifications in the lung quinn again noted bilaterally. There is a stable noncalcified 5 mm nodular opacity in the left lung base laterally adjacent to the pleura unchanged from prior studies. No new pulmonary nodule or mass lesion is observed. No hilar or mediastinal mass or adenopathy is seen. There are granulomatous lymph node calcifications in the mediastinum and right hilus unchanged. No pleural or pericardial effusion is seen. In the upper abdomen normal adrenal glands are seen. The gallbladder surgically absent. Vascular calcification is noted. There is a small subcentimeter cyst in the right lobe of the liver. This is unchanged. Granulomatous calcifications are again seen in the spleen. IMPRESSION: No evidence of mass, metastasis, or adenopathy. <Electronically signed by Quirino Scruggs > 10/30/20 [id number]
== END ==
LOC: M RAD 14:09
PROVIDERS: ATTEND Internal Medicine Medical Oncology
DX: C18.9 Malignant neoplasm of colon, unspecified (principal); Z90.49 Acquired absence of other specified parts of digestive tract; K76.89 Other specified diseases of liver
CPT/HCPCS: 71260; Q9967

== ENCOUNTER → 2020-12-24 | Outpatient (CLI) | payer MEDICARE ==
[~2020-12-24] MED LIST changes: -ISOVUE-370 76% 100ML VIAL As Ordered ONE
== END ==
LOC: M LAB 14:06
PROVIDERS: ATTEND Surgery
DX: R19.7 Diarrhea, unspecified (principal)

== ENCOUNTER → 2020-12-31 | Outpatient (CLI) | payer MEDICARE | LOC: M LAB 13:50 | PROVIDERS: ATTEND Surgery | DX: Z53.8 Procedure and treatment not carried out for other reasons (principal) ==

== ENCOUNTER → 2021-01-02 | Outpatient (REF) | payer MEDICARE | LOC: M LAB REF 14:11 | PROVIDERS: ATTEND Surgery | DX: R79.89 Other specified abnormal findings of blood chemistry (principal); R19.7 Diarrhea, unspecified ==

== ENCOUNTER 2021-01-06 09:17 | Emergency (ER) | payer MEDICARE ==
[~2021-01-06] VITALS: Ht 162.6 cm; Wt 54.1 kg
[2021-01-06] MEDS ORDERED: NS 500 ML IV ONE (09:55)
[2021-01-06 10:18] LABS: BASO % 0.4 % (0.0-1.0); EOS # 0.1 10^3/uL (0.0-0.5); EOS % 1.1 % (0.0-3.0); HEMATOCRIT 40.1 % (36.0-47.0); HEMOGLOBIN 12.7 g/dl (12.0-15.5); LYMPH # 1.3 10^3/uL (1.5-5.0); LYMPH % 13.4 % (24.0-44.0); MEAN CORPUSCULAR HEMOGLOBIN 29.8 pg (27.0-33.0); MEAN CORPUSCULAR HGB CONC 31.7 g/dl (32.0-36.5); MEAN CORPUSCULAR VOLUME 94.1 fl (80.0-96.0); MONO # 0.5 10^3/uL (0.0-0.8); MONO % 5.7 % (2.0-8.0); NEUTROPHILS # 7.4 10^3/uL (1.5-8.5); PLATELET COUNT, AUTOMATED 251 10^3/uL (150-450); RED BLOOD COUNT 4.26 10^6/uL (4.00-5.40); WHITE BLOOD COUNT 9.4 10^3/uL (4.0-10.0)
[2021-01-06 10:54] LABS: CALCIUM LEVEL 9.6 MG/DL (8.8-10.2); CREATININE FOR GFR 1.03 MG/DL (0.55-1.30); GLOMERULAR FILTRATION RATE 54.2 (>32); MAGNESIUM LEVEL 1.9 MG/DL (1.8-2.4); POTASSIUM SERUM 4.1 MEQ/L (3.5-5.1); THYROID STIMULATING HORMONE 4.53 uIU/ML (0.358-3.740)
[2021-01-06 15:15] VITALS: BP 141/65
--- NOTE | 2021-01-06 17:52 | ECGEPIP ---
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
--- NOTE | 2021-01-06 17:55 | ECGEPIP ---
[facility] - ED Test Date: 2021-01-06 Pat Name: МАРИЯ MAKI Department: Room: - Gender: Female Director Of Cardiology: [facility] : 1935 Requested By: Inessa Hernandez Order Number: [id number] Reading MD: Inessa Hernandez Measurements Intervals [place] Rate: 78 P: 73 MN: 142 QRS: 72 QRSD: 76 T: 56 QT: 356 QTc: 405 Interpretive Statements Normal sinus rhythm Right atrial enlargement increased rate 01/06/21 10:00 Electronically Signed on 01-06-2021 17:55:01 EDT by Inessa Hernandez
== END 2021-01-06 15:57 | disposition home or self-care (01) ==
LOC: M ED 09:17
DX: R55 Syncope and collapse (principal); I10 Essential (primary) hypertension; Z95.0 Presence of cardiac pacemaker; Z79.899 Other long term (current) drug therapy; Z88.1 Allergy status to other antibiotic agents; Z88.8 Allergy status to other drugs, medicaments and biological substances; Z91.018 Allergy to other foods; Z87.891 Personal history of nicotine dependence

== ENCOUNTER → 2021-03-02 | Outpatient (CLI) | payer MEDICARE ==
--- NOTE | 2021-03-05 10:27 | REPVR ---
PROCEDURE INFORMATION: Exam: CT Thoracic Spine Without Contrast Exam date and time: 03/02/2021 2:41 PM Age: 85 years old Clinical indication: Pain in thoracic spine; Additional info: Ddd thoracic region, R/O comression FX TECHNIQUE: Imaging protocol: Computed tomography images of the thoracic spine without contrast. Radiation optimization: All CT scans at this facility use at least one of these dose optimization techniques: automated exposure control; mA and/or kV adjustment per patient size (includes targeted exams where dose is matched to clinical indication); or iterative reconstruction. COMPARISON: 1. PT PET/CT Skull/mid thigh 01/03/2019 9:[address] Chest with contrast 10/30/2020 2:32:46 PM FINDINGS: Tubes, catheters and devices: Cardiac pacemaker. Vertebrae: Chronic mild T5 and T9 vertebral body compression fractures. Minimal degenerative endplate changes. No acute fracture. Normal sagittal alignment. Mild levocurvature of the upper thoracic spine. Discs/Spinal canal/Neural foramina: Mild neural foraminal narrowing at several levels. No significant spinal canal stenosis. Soft tissues: Unremarkable. Lymph nodes: Calcified mediastinal and hilar lymph nodes are suggestive of prior granulomatous disease. Lungs: Calcified pulmonary granulomas. Heart: Coronary artery calcifications. Gallbladder and bile ducts: There has been a cholecystectomy. Spleen: Calcified splenic granulomas. IMPRESSION: No acute thoracic spine fracture. Electronically signed by: Maribel Sosa On 03/05/2021 10:27:20 AM
== END ==
LOC: M RAD 14:33
PROVIDERS: ATTEND Physician Assistant
DX: M51.34 Other intervertebral disc degeneration, thoracic region (principal); Z90.49 Acquired absence of other specified parts of digestive tract

== ENCOUNTER → 2021-07-24 | Outpatient (REF) | payer MEDICARE ==
[~2021-07-24] MED LIST changes: -LISI2.5T2 PO; +LISI2.5T9 PO; -MAGN400T3 PO; +MAGN400T33 PO
== END ==
LOC: M LAB REF 16:11
PROVIDERS: ATTEND Registered Nurse
DX: N39.0 Urinary tract infection, site not specified (principal)

== ENCOUNTER → 2021-08-03 | Outpatient (CLI) | payer MEDICARE | LOC: M WUC 11:06 | PROVIDERS: ATTEND Physician Assistant Medical | DX: R53.83 Other fatigue (principal) ==

== ENCOUNTER → 2021-08-06 | Outpatient (CLI) | payer MEDICARE | LOC: M RAD 14:27 | PROVIDERS: ATTEND Physician Assistant Surgical | DX: M51.36 Other intervertebral disc degeneration, lumbar region (principal); M99.73 Connective tissue and disc stenosis of intervertebral foramina of lumbar region; M43.16 Spondylolisthesis, lumbar region ==

== ENCOUNTER → 2021-08-19 | Outpatient (CLI) | payer MEDICARE ==
[~2021-08-19] MED LIST changes: +GASTROGRAFIN SOLUTION 30ML (Q9963) As Ordered ONE; +ISOVUE-370 76% 100ML VIAL As Ordered ONE
--- NOTE | 2021-08-19 13:27 | REP ---
INDICATION: COLON CA COMPARISON: 10/30/2020 TECHNIQUE: Axial contrast enhanced images from the thoracic inlet to the upper abdomen with coronal and sagittal reformations using 100 ml Isovue 370 intravenous contrast material. This CT examination was performed using the following dose reduction techniques: Automated exposure control, adjustment of mA and/or kv according to the patient's size, and use of iterative reconstruction technique. FINDINGS: Lung quinn demonstrate age-related chronic interstitial changes, emphysematous changes and scattered calcified nodules consistent with prior granulomatous disease. No acute consolidation, suspicious nodule or mass. No effusion. No pneumothorax. Tracheobronchial tree is patent. Few calcified mediastinal and hilar lymph nodes again consistent with prior granulomatous disease. Mediastinum demonstrates stable appearance to the thoracic aorta, pulmonary vasculature, and heart/pericardium with atherosclerotic changes again noted. No aortic aneurysm or dissection. No cardiomegaly or pericardial effusion. Pacemaker noted. IMPRESSION: Chronic changes. No evidence for acute process or metastatic disease. <Electronically signed by Brett Rose > 08/19/21 [id number]
--- NOTE | 2021-08-19 13:36 | REP ---
INDICATION: COLON CA. COMPARISON: 08/07/2020 TECHNIQUE: Axial contrast-enhanced images from the lung bases to the pubic symphysis using oral and 100 cc Isovue 370 intravenous contrast material. Delayed images of the abdomen obtained along with coronal and sagittal reformations. This CT examination was performed using the following dose reduction techniques: Automated exposure control, adjustment of mA and/or kv according to the patient's size, and the use of iterative reconstruction technique. FINDINGS: Liver demonstrates compensatory biliary ductal dilatation related to prior cholecystectomy. No focal hepatic lesions are identified. Spleen demonstrates parenchymal calcifications consistent with prior granulomatous disease. Pancreas, bilateral adrenal glands and kidneys are essentially stable/normal. Rounded calcification at the pancreatic tail along with renal cysts are again identified. The enteric system including stomach, small, and large bowel appears normal. No evidence for obstruction or acute inflammatory process. Normal terminal ileum and appendix are identified in the right lower quadrant. Colonic and sigmoid diverticulosis noted without acute diverticulitis. Evidence for prior partial resection and anastomosis to loop of bowel in the left lower quadrant. Pelvis demonstrates normal bladder and age-appropriate uterus/adnexa. No ascites. No free air. No intraperitoneal or retroperitoneal adenopathy. Abdominal aorta and vasculature appear normal. Musculoskeletal structures are intact and without acute osseous abnormality. IMPRESSION: No acute abdominopelvic pathology appreciated. Chronic stable changes. No evidence for metastatic disease or obvious recurrence. <Electronically signed by Brett Rose > 08/19/21 [id number]
== END ==
LOC: M RAD 11:14
PROVIDERS: ATTEND Internal Medicine Medical Oncology
DX: Z85.038 Personal history of other malignant neoplasm of large intestine (principal); Z95.0 Presence of cardiac pacemaker
CPT/HCPCS: 71260; 74177; Q9963; Q9967

== ENCOUNTER 2022-01-06 09:41 | Emergency (ER) | payer MEDICARE ==
[~2022-01-06] VITALS: Ht 165.1 cm; Wt 56.0 kg
[~2022-01-06 09:41] MED LIST changes: -D31000TA2 PO; -GASTROGRAFIN SOLUTION 30ML (Q9963) As Ordered ONE; -ISOVUE-370 76% 100ML VIAL As Ordered ONE; +VITA100093 PO
[2022-01-06 10:34] LABS: BASO # 0.1 10^3/uL (0.0-0.2); BASO % 0.7 % (0.0-1.0); EOS # 0.1 10^3/uL (0.0-0.5); EOS % 1.6 % (0.0-3.0); HEMATOCRIT 37.1 % (36.0-47.0); HEMOGLOBIN 12.1 g/dl (12.0-15.5); LYMPH % 13.5 % (24.0-44.0); MEAN CORPUSCULAR HEMOGLOBIN 30.3 pg (27.0-33.0); MEAN CORPUSCULAR HGB CONC 32.6 g/dl (32.0-36.5); MEAN CORPUSCULAR VOLUME 92.8 fl (80.0-96.0); MONO # 0.7 10^3/uL (0.0-0.8); MONO % 9.2 % (2.0-8.0); NEUTROPHILS # 5.7 10^3/uL (1.5-8.5); NEUTROPHILS % 74.6 % (36.0-66.0); PLATELET COUNT, AUTOMATED 205 10^3/uL (150-450); WHITE BLOOD COUNT 7.7 10^3/uL (4.0-10.0)
[2022-01-06 10:46] LABS: INR 1.07; PROTHROMBIN TIME 14.3 SECONDS (12.7-14.5)
[2022-01-06 10:47] LABS: PARTIAL THROMBOPLASTIN TIME 25.2 SECONDS (25.9-37.0)
[2022-01-06 11:08] LABS: CK-MB VALUE MASS 1.1 NG/ML (<3.6); MB/CK RELATIVE INDEX 1.75 (< OR =4)
[2022-01-06 11:14] LABS: BLOOD UREA NITROGEN 23 MG/DL (7-18); CALCIUM LEVEL 10.3 MG/DL (8.8-10.2); CARBON DIOXIDE LEVEL 32 MEQ/L (21-32); CHLORIDE LEVEL 106 MEQ/L (98-107); CREATININE FOR GFR 0.95 MG/DL (0.55-1.30); ETHYL ALCOHOL (ETHANOL) < 0.003 % (0.000-0.010); FREE T4 1.13 NG/DL (0.76-1.46); GLOMERULAR FILTRATION RATE 59.4 (>32); GLUCOSE, FASTING 126 MG/DL (70-100); MAGNESIUM LEVEL 2.2 MG/DL (1.8-2.4); POTASSIUM SERUM 4.9 MEQ/L (3.5-5.1); SODIUM LEVEL 141 MEQ/L (136-145)
[2022-01-06 11:56] LABS: RSV AMPLIFICATION NEGATIVE (NEGATIVE)
[2022-01-06] MEDS ORDERED: amLODIPine 5 MG TAB PO ONE (12:35)
[2022-01-06] MEDS ORDERED: ISOVUE-370 76% 100ML VIAL As Ordered ONE (12:47)
[2022-01-06 13:31] VITALS: BP 195/91
== END 2022-01-06 14:27 | disposition home or self-care (01) ==
LOC: M ED 09:41 → EDBD 09:41 → M ED 14:27
DX: R55 Syncope and collapse (principal); I10 Essential (primary) hypertension; F33.9 Major depressive disorder, recurrent, unspecified; Z85.038 Personal history of other malignant neoplasm of large intestine; Z79.899 Other long term (current) drug therapy; Z88.1 Allergy status to other antibiotic agents; Z88.8 Allergy status to other drugs, medicaments and biological substances; Z91.018 Allergy to other foods; Z87.891 Personal history of nicotine dependence
CPT/HCPCS: 36415; 71045; 74177; 80047; 80048; 82077; 82550; 82553; 83605; 83735; 84439; 84443; 84484; 85025; 85610; 85730; 87631; 93005; 93041; 94760; 99285; Q9967

== ENCOUNTER → 2022-02-02 | Outpatient (CLI) | payer MEDICARE | LOC: M RAD 06:48 | PROVIDERS: ATTEND Surgery | DX: R97.0 Elevated carcinoembryonic antigen [CEA] (principal); R19.7 Diarrhea, unspecified; Z85.038 Personal history of other malignant neoplasm of large intestine | CPT/HCPCS: 78803; 78804; A9572 ==

== ENCOUNTER 2022-03-05 09:41 | Emergency (ER) | payer MEDICARE ==
[~2022-03-05] VITALS: Ht 165.1 cm; Wt 49.5 kg
[~2022-03-05 09:41] MED LIST changes: +DICY10CA13
[2022-03-05 10:50] LABS: BASO % 0.6 % (0.0-1.0); EOS # 0.1 10^3/uL (0.0-0.5); EOS % 1.6 % (0.0-3.0); HEMATOCRIT 34.5 % (36.0-47.0); LYMPH # 1.1 10^3/uL (1.5-5.0); LYMPH % 16.5 % (24.0-44.0); MEAN CORPUSCULAR HEMOGLOBIN 30.1 pg (27.0-33.0); MEAN CORPUSCULAR HGB CONC 31.9 g/dl (32.0-36.5); MEAN CORPUSCULAR VOLUME 94.3 fl (80.0-96.0); MONO # 0.6 10^3/uL (0.0-0.8); MONO % 8.8 % (2.0-8.0); NEUTROPHILS % 72.1 % (36.0-66.0); PLATELET COUNT, AUTOMATED 182 10^3/uL (150-450); RED BLOOD COUNT 3.66 10^6/uL (4.00-5.40); WHITE BLOOD COUNT 6.9 10^3/uL (4.0-10.0)
[2022-03-05 11:46] VITALS: BP 180/78
== END 2022-03-05 11:55 | disposition home or self-care (01) ==
LOC: M ED 09:41
DX: R55 Syncope and collapse (principal); I10 Essential (primary) hypertension; F33.9 Major depressive disorder, recurrent, unspecified; Z88.1 Allergy status to other antibiotic agents; Z88.8 Allergy status to other drugs, medicaments and biological substances; Z91.018 Allergy to other foods; Z79.899 Other long term (current) drug therapy; Z87.891 Personal history of nicotine dependence

== ENCOUNTER → 2022-05-25 | Outpatient (CLI) | payer MEDICARE | LOC: M WHC 10:28 | PROVIDERS: ATTEND Physician Assistant Medical | DX: M79.662 Pain in left lower leg (principal) ==

== ENCOUNTER → 2022-09-16 | Outpatient (CLI) | payer MEDICARE | LOC: M SOG 08:47 | PROVIDERS: ATTEND Orthopaedic Surgery | DX: M47.814 Spondylosis without myelopathy or radiculopathy, thoracic region (principal) ==

== ENCOUNTER 2022-10-13 08:59 | Emergency (ER) | payer MEDICARE ==
[~2022-10-13] VITALS: Ht 165.1 cm; Wt 50.0 kg
[2022-10-13 10:15] LABS: BASO % 0.4 % (0.0-1.0); EOS # 0.1 10^3/uL (0.0-0.5); EOS % 0.9 % (0.0-3.0); HEMATOCRIT 37.2 % (36.0-47.0); HEMOGLOBIN 11.8 g/dl (12.0-15.5); LYMPH % 14.4 % (24.0-44.0); MEAN CORPUSCULAR HEMOGLOBIN 30.3 pg (27.0-33.0); MEAN CORPUSCULAR HGB CONC 31.7 g/dl (32.0-36.5); MEAN CORPUSCULAR VOLUME 95.6 fl (80.0-96.0); MONO # 0.6 10^3/uL (0.0-0.8); MONO % 8.1 % (2.0-8.0); NEUTROPHILS # 5.1 10^3/uL (1.5-8.5); NEUTROPHILS % 75.9 % (36.0-66.0); PLATELET COUNT, AUTOMATED 219 10^3/uL (150-450); RED BLOOD COUNT 3.89 10^6/uL (4.00-5.40); WHITE BLOOD COUNT 6.8 10^3/uL (4.0-10.0)
[2022-10-13 10:26] LABS: INR 1.08; PROTHROMBIN TIME 14.2 SECONDS (12.5-14.5)
[2022-10-13 10:27] LABS: PARTIAL THROMBOPLASTIN TIME 26.5 SECONDS (24.8-34.2)
[2022-10-13 10:31] LABS: CK-MB VALUE MASS < 1.0 NG/ML (<3.6)
[2022-10-13 10:32] LABS: BLOOD UREA NITROGEN 27 MG/DL (9-23); CALCIUM LEVEL 9.3 MG/DL (8.3-10.6); CARBON DIOXIDE LEVEL 30 MMOL/L (20-31); CHLORIDE LEVEL 108 MMOL/L (98-107); CPK CREATINE PHOSPHOKINASE 62 U/L (34-145); CREATININE FOR GFR 0.95 MG/DL (0.55-1.30); GLOMERULAR FILTRATION RATE 59.4 (>32); GLUCOSE, FASTING 122 MG/DL (74-106); MAGNESIUM LEVEL 1.8 MG/DL (1.8-2.4); MB/CK RELATIVE INDEX 1.61 (< OR =4); POTASSIUM SERUM 4.4 MMOL/L (3.5-5.1); SODIUM LEVEL 140 MMOL/L (136-145)
[2022-10-13 10:34] LABS: THYROID STIMULATING HORMONE 4.456 uIU/ML (0.55-4.78)
[2022-10-13 10:35] LABS: FREE T4 1.28 NG/DL (0.89-1.76)
[2022-10-13 10:41] LABS: RSV AMPLIFICATION NEGATIVE (NEGATIVE)
[2022-10-13 12:00] LABS: CK-MB VALUE MASS 2.2 NG/ML (<3.6)
[2022-10-13 12:02] LABS: MB/CK RELATIVE INDEX 2.71 (< OR =4)
[2022-10-13 13:18] VITALS: BP 160/67
[2022-10-13 13:24] VITALS: O2SAT 98
== END 2022-10-13 13:58 | disposition home or self-care (01) ==
LOC: EDBD 08:59 → M ED 08:59
DX: R55 Syncope and collapse (principal); I10 Essential (primary) hypertension; Z88.1 Allergy status to other antibiotic agents; Z79.899 Other long term (current) drug therapy

== ENCOUNTER → 2023-01-03 | Outpatient (CLI) | payer MEDICARE ==
[~2023-01-03] MED LIST changes: +GASTROGRAFIN SOLUTION 30ML As Ordered ONE; +ISOVUE-370 76% 100ML VIAL As Ordered ONE
== END ==
LOC: M RAD 11:21
PROVIDERS: ATTEND Internal Medicine Medical Oncology
DX: C18.9 Malignant neoplasm of colon, unspecified (principal)
CPT/HCPCS: 74177; Q9963; Q9967

== ENCOUNTER → 2023-01-21 | Outpatient (REF) | payer MEDICARE ==
[~2023-01-21] MED LIST changes: -GASTROGRAFIN SOLUTION 30ML As Ordered ONE; -ISOVUE-370 76% 100ML VIAL As Ordered ONE
== END ==
LOC: M LAB REF 16:15
PROVIDERS: ATTEND Nurse Practitioner Adult Health
DX: N39.0 Urinary tract infection, site not specified (principal)

== ENCOUNTER → 2023-01-28 | Outpatient (CLI) | payer MEDICARE | LOC: M WHC 10:40 | PROVIDERS: ATTEND Nurse Practitioner Adult Health | DX: M81.8 Other osteoporosis without current pathological fracture (principal) ==

== ENCOUNTER 2023-02-17 10:08 | Emergency (ER) | payer MEDICARE ==
[~2023-02-17] VITALS: Ht 165.1 cm; Wt 48.7 kg
[2023-02-17] MEDS ORDERED: ALEN70TA82 (10:23)
[2023-02-17 11:33] LABS: BASO % 0.6 % (0.0-1.0); EOS # 0.1 10^3/uL (0.0-0.5); HEMOGLOBIN 12.9 g/dl (12.0-15.5); LYMPH # 0.8 10^3/uL (1.5-5.0); LYMPH % 10.6 % (24.0-44.0); MEAN CORPUSCULAR HEMOGLOBIN 30.6 pg (27.0-33.0); MEAN CORPUSCULAR HGB CONC 32.3 g/dl (32.0-36.5); MONO # 0.6 10^3/uL (0.0-0.8); MONO % 7.7 % (2.0-8.0); NEUTROPHILS # 5.8 10^3/uL (1.5-8.5); NEUTROPHILS % 79.7 % (36.0-66.0); PLATELET COUNT, AUTOMATED 207 10^3/uL (150-450); RED BLOOD COUNT 4.21 10^6/uL (4.00-5.40); WHITE BLOOD COUNT 7.3 10^3/uL (4.0-10.0)
[2023-02-17 11:55] LABS: INR 1.02; PROTHROMBIN TIME 13.6 SECONDS (12.5-14.5)
[2023-02-17 11:56] LABS: PARTIAL THROMBOPLASTIN TIME 25.8 SECONDS (24.8-34.2)
[2023-02-17 11:57] LABS: CK-MB VALUE MASS 1.3 NG/ML (<3.6)
[2023-02-17 12:01] LABS: CALCIUM LEVEL 9.1 MG/DL (8.3-10.6); CREATININE FOR GFR 0.97 MG/DL (0.55-1.30); GLOMERULAR FILTRATION RATE 57.8 (>32); MB/CK RELATIVE INDEX 1.64 (< OR =4); POTASSIUM SERUM 4.4 MMOL/L (3.5-5.1)
[2023-02-17 12:13] LABS: RSV AMPLIFICATION NEGATIVE (NEGATIVE)
[2023-02-17] MEDS ORDERED: NS 500 ML IV ONE (12:20)
[2023-02-17 18:00] VITALS: BP 197/81; TEMP 98.7; O2SAT 100
== END 2023-02-17 18:07 | disposition home or self-care (01) ==
LOC: M ED 10:08
DX: R55 Syncope and collapse (principal); I10 Essential (primary) hypertension; F32.A Depression, unspecified; Z95.0 Presence of cardiac pacemaker; Z87.891 Personal history of nicotine dependence; Z88.8 Allergy status to other drugs, medicaments and biological substances; Z88.1 Allergy status to other antibiotic agents; Z91.018 Allergy to other foods; Z79.899 Other long term (current) drug therapy

== ENCOUNTER 2023-05-09 09:00 | Inpatient (IN) | payer MEDICARE ==
[~2023-05-09] VITALS: Ht 170.2 cm; Wt 47.6 kg
[~2023-05-09 09:00] MED LIST changes: +ALEN70TA82; +DICY-61; -DICY10CA13
[2023-05-09 09:50] LABS: BASO % 0.4 % (0.0-1.0); EOS % 0.6 % (0.0-3.0); HEMATOCRIT 37.3 % (36.0-47.0); HEMOGLOBIN 11.9 g/dl (12.0-15.5); LYMPH # 1.5 10^3/uL (1.5-5.0); LYMPH % 28.9 % (24.0-44.0); MEAN CORPUSCULAR HEMOGLOBIN 30.1 pg (27.0-33.0); MEAN CORPUSCULAR HGB CONC 31.9 g/dl (32.0-36.5); MEAN CORPUSCULAR VOLUME 94.2 fl (80.0-96.0); MONO # 0.3 10^3/uL (0.0-0.8); MONO % 5.6 % (2.0-8.0); NEUTROPHILS # 3.3 10^3/uL (1.5-8.5); NEUTROPHILS % 64.3 % (36.0-66.0); PLATELET COUNT, AUTOMATED 232 10^3/uL (150-450); RED BLOOD COUNT 3.96 10^6/uL (4.00-5.40); WHITE BLOOD COUNT 5.2 10^3/uL (4.0-10.0)
[2023-05-09 10:03] LABS: INR 1.1; PROTHROMBIN TIME 13.9 SECONDS (12.5-14.5)
[2023-05-09 10:04] LABS: PARTIAL THROMBOPLASTIN TIME 24.8 SECONDS (24.8-34.2)
[2023-05-09 10:15] LABS: CK-MB VALUE MASS < 1.0 NG/ML (<3.6); LIPASE 58 U/L (12-53)
[2023-05-09 10:17] LABS: ALBUMIN 3.6 G/DL (3.2-5.2); ALKALINE PHOSPHATASE 91 U/L (46-116); ALT/SGPT 16 U/L (7.0-40); AST/SGOT 19 U/L (<34); BILIRUBIN,DIRECT 0.2 MG/DL (<0.4); BILIRUBIN,TOTAL 0.5 MG/DL (0.3-1.2); TOTAL PROTEIN 6.4 G/DL (5.7-8.2)
[2023-05-09 10:21] LABS: CPK CREATINE PHOSPHOKINASE 61 U/L (34-145); MB/CK RELATIVE INDEX 1.63 (< OR =4)
[2023-05-09] MEDS ORDERED: ONDANSETRON 4MG 2ML VIAL IV ONE (12:55)
[2023-05-09] MEDS ORDERED: ISOVUE-370 76% 100ML VIAL As Ordered ONE (13:03)
[2023-05-09] MEDS ORDERED: LevoFLOXacin IV 750 MG in IV 1 EA IV ONE (15:30)
[2023-05-09 15:32] LABS: PROCALCITONIN 0.06 ng/ml
[2023-05-09] MEDS ORDERED: MED REC IN PROGRESS XX SCH ×2 (16:10→16:20)
[2023-05-09] MEDS ORDERED: hydrALAZINE 20MG/ML 1ML VIAL IV ONE (16:50)
[2023-05-09] MEDS ORDERED: NS 1,000 ML IV SCH (17:20)
[2023-05-09 17:30] LABS: BLOOD UREA NITROGEN 24 MG/DL (9-23); CALCIUM LEVEL 9.4 MG/DL (8.3-10.6); CARBON DIOXIDE LEVEL 26 MMOL/L (20-31); CHLORIDE LEVEL 105 MMOL/L (98-107); GLOMERULAR FILTRATION RATE 55.8 (>32); GLUCOSE, FASTING 203 MG/DL (74-106); POTASSIUM SERUM 4.9 MMOL/L (3.5-5.1); SODIUM LEVEL 142 MMOL/L (136-145)
[2023-05-09] MEDS ORDERED: MECLIZINE 25 MG TABLET PO PRN (17:30)
[2023-05-09] MEDS ORDERED: MED REC CURRENTLY UNOBTAINABLE XX SCH (20:10)
[2023-05-09 20:55] VITALS: BP 142/48; TEMP 98.5; O2SAT 96
[2023-05-09 21:00] VITALS: O2SAT 92
[2023-05-09] MEDS: DOXYCYCLINE HYCLATE 100 MG in D5W MINI-BAG PLUS 100 ML IV SCH (21:41)
[2023-05-09 22:00] VITALS: O2SAT 89
[2023-05-09 23:00] VITALS: O2SAT 88
[2023-05-09] MEDS ORDERED: cefTRIAXone SOD 1 GM in D5W MINI-BAG PLUS 50 ML IV SCH (23:00)
[2023-05-09] MEDS ORDERED: OYST500C PO (23:38)
[2023-05-09] MEDS ORDERED: AMLO1TAB24 PO (23:38)
[2023-05-09] MEDS ORDERED: FLUO10CA18 PO (23:38)
[2023-05-09] MEDS ORDERED: HOME MED LIST COMPLETE! XX SCH (23:40)
[2023-05-09 23:51] VITALS: BP 116/57; TEMP 98.4; O2SAT 96
[2023-05-10] VITALS (18 sets, daily range): BP systolic 110–152; BP diastolic 53–65; TEMP 98.1–101.7; O2SAT 88–96
[2023-05-10 05:18] LABS: HEMATOCRIT 33.5 % (36.0-47.0); HEMOGLOBIN 10.9 g/dl (12.0-15.5); MEAN CORPUSCULAR HEMOGLOBIN 30.5 pg (27.0-33.0); MEAN CORPUSCULAR HGB CONC 32.5 g/dl (32.0-36.5); MEAN CORPUSCULAR VOLUME 93.8 fl (80.0-96.0); PLATELET COUNT, AUTOMATED 171 10^3/uL (150-450); RED BLOOD COUNT 3.57 10^6/uL (4.00-5.40); WHITE BLOOD COUNT 8.1 10^3/uL (4.0-10.0)
[2023-05-10 05:35] LABS: CALCIUM LEVEL 8.5 MG/DL (8.3-10.6); CREATININE FOR GFR 0.97 MG/DL (0.55-1.30); GLOMERULAR FILTRATION RATE 57.8 (>32); MAGNESIUM LEVEL 1.5 MG/DL (1.8-2.4); POTASSIUM SERUM 4.3 MMOL/L (3.5-5.1)
[2023-05-10] MEDS: MAG SULF 1GM/100ML (MAG RUN) 1 GM in IV 1 EA IV SCH ×5 (05:53→09:40)
[2023-05-10] MEDS: ENOXAPARIN 30MG/0.3ML SYRINGE (J1650 PER 10MG) SC SCH (08:16)
[2023-05-10] MEDS: DOXYCYCLINE HYCLATE 100 MG in D5W MINI-BAG PLUS 100 ML IV SCH (08:17)
[2023-05-10] MEDS: FLUoxetine 10 MG CAP PO SCH (08:17)
[2023-05-10] MEDS ORDERED: MAGNESIUM OXIDE 400MG TAB (MAG-OX) PO SCH (09:00)
[2023-05-10] MEDS ORDERED: ISOVUE-370 76% 100ML VIAL As Ordered ONE (12:34)
[2023-05-10 13:53] LABS: MAGNESIUM LEVEL 2.4 MG/DL (1.8-2.4)
[2023-05-10] MEDS: ACETAMINOPHEN TAB 650MG DOSE (2X325MG) PO PRN (15:23)
[2023-05-10 16:29] LABS: HIV 1&2 SCREEN NEGATIVE (NEGATIVE)
[2023-05-10] MEDS: DOXYCYCLINE HYCLATE 100MG TABLET PO SCH (20:26)
[2023-05-10] MEDS ORDERED: cefTRIAXone SOD 2 GM in D5W MINI-BAG PLUS 50 ML IV SCH ×2 (23:00)
[2023-05-11] VITALS (33 sets, daily range): BP systolic 103–166; BP diastolic 56–72; TEMP 98.3–102.4; O2SAT 84–95
[2023-05-11] MEDS: ACETAMINOPHEN TAB 650MG DOSE (2X325MG) PO PRN ×3 (01:40→22:04)
[2023-05-11 06:05] LABS: HEMOGLOBIN 10.5 g/dl (12.0-15.5); MEAN CORPUSCULAR HEMOGLOBIN 29.6 pg (27.0-33.0); MEAN CORPUSCULAR HGB CONC 31.8 g/dl (32.0-36.5); PLATELET COUNT, AUTOMATED 145 10^3/uL (150-450); RED BLOOD COUNT 3.55 10^6/uL (4.00-5.40); WHITE BLOOD COUNT 10.2 10^3/uL (4.0-10.0)
[2023-05-11 06:30] LABS: BLOOD UREA NITROGEN 26 MG/DL (9-23); CALCIUM LEVEL 8.6 MG/DL (8.3-10.6); CARBON DIOXIDE LEVEL 29 MMOL/L (20-31); CHLORIDE LEVEL 103 MMOL/L (98-107); CREATININE FOR GFR 0.89 MG/DL (0.55-1.30); GLOMERULAR FILTRATION RATE > 60.0 (>32); GLUCOSE, FASTING 107 MG/DL (74-106); MAGNESIUM LEVEL 1.9 MG/DL (1.8-2.4); POTASSIUM SERUM 4.3 MMOL/L (3.5-5.1); SODIUM LEVEL 136 MMOL/L (136-145)
[2023-05-11] MEDS: FLUoxetine 10 MG CAP PO SCH (09:19)
[2023-05-11] MEDS: ENOXAPARIN 30MG/0.3ML SYRINGE (J1650 PER 10MG) SC SCH (09:19)
[2023-05-11] MEDS: DOXYCYCLINE HYCLATE 100MG TABLET PO SCH ×2 (09:19→20:39)
[2023-05-11] MEDS: PIPERACILLIN/TAZOBACTAM SOD 3.375 GM in D5W MINI-BAG PLUS 50 ML IV SCH ×2 (14:45→20:40)
[2023-05-12] VITALS (28 sets, daily range): BP systolic 129–166; BP diastolic 59–88; TEMP 98.4–101.2; O2SAT 81–98
[2023-05-12] MEDS: PIPERACILLIN/TAZOBACTAM SOD 3.375 GM in D5W MINI-BAG PLUS 50 ML IV SCH ×4 (03:12→20:15)
[2023-05-12 06:05] LABS: HEMATOCRIT 33.9 % (36.0-47.0); HEMOGLOBIN 11.2 g/dl (12.0-15.5); MEAN CORPUSCULAR VOLUME 90.9 fl (80.0-96.0); PLATELET COUNT, AUTOMATED 145 10^3/uL (150-450); RED BLOOD COUNT 3.73 10^6/uL (4.00-5.40)
[2023-05-12 06:41] LABS: BLOOD UREA NITROGEN 25 MG/DL (9-23); CALCIUM LEVEL 8.5 MG/DL (8.3-10.6); CARBON DIOXIDE LEVEL 28 MMOL/L (20-31); CHLORIDE LEVEL 101 MMOL/L (98-107); CREATININE FOR GFR 0.78 MG/DL (0.55-1.30); GLOMERULAR FILTRATION RATE > 60.0 (>32); GLUCOSE, FASTING 118 MG/DL (74-106); MAGNESIUM LEVEL 1.6 MG/DL (1.8-2.4); POTASSIUM SERUM 4.3 MMOL/L (3.5-5.1); SODIUM LEVEL 135 MMOL/L (136-145)
[2023-05-12 06:47] LABS: PROCALCITONIN 14.63 ng/ml
[2023-05-12] MEDS: MAG SULF 1GM/100ML (MAG RUN) 1 GM in IV 1 EA IV SCH ×2 (09:11→11:55)
[2023-05-12] MEDS: DOXYCYCLINE HYCLATE 100MG TABLET PO SCH ×2 (09:11→20:14)
[2023-05-12] MEDS: ENOXAPARIN 30MG/0.3ML SYRINGE (J1650 PER 10MG) SC SCH (09:11)
[2023-05-12] MEDS: FLUoxetine 10 MG CAP PO SCH (09:12)
[2023-05-12] MEDS: ACETAMINOPHEN TAB 650MG DOSE (2X325MG) PO PRN ×2 (13:00→20:15)
[2023-05-12] MEDS ORDERED: ONDANSETRON 4MG 2ML VIAL IV ONE (21:20)
[2023-05-13] VITALS (12 sets, daily range): BP systolic 130–159; BP diastolic 61–79; TEMP 97.4–100.2; O2SAT 78–97
[2023-05-13] MEDS: PIPERACILLIN/TAZOBACTAM SOD 3.375 GM in D5W MINI-BAG PLUS 50 ML IV SCH ×4 (04:28→20:19)
[2023-05-13 07:01] LABS: HEMATOCRIT 32.9 % (36.0-47.0); HEMOGLOBIN 10.8 g/dl (12.0-15.5); MEAN CORPUSCULAR HEMOGLOBIN 29.6 pg (27.0-33.0); MEAN CORPUSCULAR HGB CONC 32.8 g/dl (32.0-36.5); MEAN CORPUSCULAR VOLUME 90.1 fl (80.0-96.0); PLATELET COUNT, AUTOMATED 179 10^3/uL (150-450); RED BLOOD COUNT 3.65 10^6/uL (4.00-5.40); WHITE BLOOD COUNT 13.5 10^3/uL (4.0-10.0)
[2023-05-13 07:36] LABS: BLOOD UREA NITROGEN 25 MG/DL (9-23); CALCIUM LEVEL 8.2 MG/DL (8.3-10.6); CARBON DIOXIDE LEVEL 30 MMOL/L (20-31); CHLORIDE LEVEL 97 MMOL/L (98-107); CREATININE FOR GFR 0.71 MG/DL (0.55-1.30); GLOMERULAR FILTRATION RATE > 60.0 (>32); GLUCOSE, FASTING 137 MG/DL (74-106); MAGNESIUM LEVEL 1.8 MG/DL (1.8-2.4); POTASSIUM SERUM 3.8 MMOL/L (3.5-5.1); SODIUM LEVEL 132 MMOL/L (136-145)
[2023-05-13] MEDS: ONDANSETRON 4MG 2ML VIAL IV PRN (09:12)
[2023-05-13] MEDS: ACETAMINOPHEN TAB 650MG DOSE (2X325MG) PO PRN ×2 (09:13→17:36)
[2023-05-13] MEDS: DOXYCYCLINE HYCLATE 100MG TABLET PO SCH ×2 (09:13→20:18)
[2023-05-13] MEDS: ENOXAPARIN 30MG/0.3ML SYRINGE (J1650 PER 10MG) SC SCH (09:13)
[2023-05-13] MEDS: FLUoxetine 10 MG CAP PO SCH (09:13)
[2023-05-13 09:26] LABS: ABG BASE EXCESS 1.4 (-2.0-2.0); ABG HCO3 25.5 MMOL/L (22.0-26.0); ABG O2 SATURATION 88.3 % (95.0-99.0); ABG PARTIAL PRESSURE CO2 38.6 mmHg (35.0-45.0); ABG PARTIAL PRESSURE O2 51.3 mmHg (75.0-100.0); ABG STANDARD HCO3 25.5 MMOL/L. (22.0-26.0); ABG TOTAL CO2 26.7 MMOL/L (23.0-31.0); ABG pH (ARTERIAL) 7.438 UNITS (7.350-7.450)
[2023-05-13 09:26] LABS: PROCALCITONIN 8.52 ng/ml
[2023-05-13] MEDS: NYSTATIN 500,000U/5ML SUSP UDC SS SCH (20:18)
[2023-05-14] VITALS (28 sets, daily range): BP systolic 140–172; BP diastolic 64–78; TEMP 97.6–98.4; O2SAT 74–100
[2023-05-14] MEDS: PIPERACILLIN/TAZOBACTAM SOD 3.375 GM in D5W MINI-BAG PLUS 50 ML IV SCH ×4 (03:39→21:26)
[2023-05-14 05:04] LABS: HEMATOCRIT 33.3 % (36.0-47.0); MEAN CORPUSCULAR HEMOGLOBIN 30.1 pg (27.0-33.0); PLATELET COUNT, AUTOMATED 194 10^3/uL (150-450); RED BLOOD COUNT 3.66 10^6/uL (4.00-5.40); WHITE BLOOD COUNT 13.1 10^3/uL (4.0-10.0)
[2023-05-14 05:31] LABS: BLOOD UREA NITROGEN 24 MG/DL (9-23); CALCIUM LEVEL 8.5 MG/DL (8.3-10.6); CARBON DIOXIDE LEVEL 30 MMOL/L (20-31); CHLORIDE LEVEL 98 MMOL/L (98-107); CREATININE FOR GFR 0.67 MG/DL (0.55-1.30); GLOMERULAR FILTRATION RATE > 60.0 (>32); GLUCOSE, FASTING 136 MG/DL (74-106); MAGNESIUM LEVEL 1.6 MG/DL (1.8-2.4); POTASSIUM SERUM 3.3 MMOL/L (3.5-5.1); SODIUM LEVEL 136 MMOL/L (136-145)
[2023-05-14 05:39] LABS: PROCALCITONIN 6.07 ng/ml
[2023-05-14] MEDS ORDERED: POTASSIUM CHLORIDE 10MEQ SR TABLET PO ONE (08:00)
[2023-05-14] MEDS: MAG SULF 1GM/100ML (MAG RUN) 1 GM in IV 1 EA IV SCH ×2 (08:38→09:43)
[2023-05-14] MEDS: NYSTATIN 500,000U/5ML SUSP UDC SS SCH ×3 (08:40→21:25)
[2023-05-14] MEDS: DOXYCYCLINE HYCLATE 100MG TABLET PO SCH ×2 (08:40→21:25)
[2023-05-14] MEDS: FLUoxetine 10 MG CAP PO SCH (08:40)
[2023-05-14] MEDS: ENOXAPARIN 30MG/0.3ML SYRINGE (J1650 PER 10MG) SC SCH (08:41)
[2023-05-14] MEDS: **hydrALAZINE HCL** 25 MG TAB PO PRN (10:16)
[2023-05-14] MEDS: methylPREDNISolone 125MG 2ML VIAL IV SCH (17:54)
[2023-05-15] VITALS (28 sets, daily range): BP systolic 126–152; BP diastolic 58–68; TEMP 96.7–99.5; O2SAT 89–100
[2023-05-15] MEDS: PIPERACILLIN/TAZOBACTAM SOD 3.375 GM in D5W MINI-BAG PLUS 50 ML IV SCH ×4 (02:37→21:04)
[2023-05-15 05:07] LABS: HEMATOCRIT 34.3 % (36.0-47.0); HEMOGLOBIN 11.1 g/dl (12.0-15.5); MEAN CORPUSCULAR HEMOGLOBIN 29.4 pg (27.0-33.0); MEAN CORPUSCULAR HGB CONC 32.4 g/dl (32.0-36.5); MEAN CORPUSCULAR VOLUME 90.7 fl (80.0-96.0); PLATELET COUNT, AUTOMATED 210 10^3/uL (150-450); RED BLOOD COUNT 3.78 10^6/uL (4.00-5.40); WHITE BLOOD COUNT 9.6 10^3/uL (4.0-10.0)
[2023-05-15 05:38] LABS: BLOOD UREA NITROGEN 31 MG/DL (9-23); CALCIUM LEVEL 8.5 MG/DL (8.3-10.6); CARBON DIOXIDE LEVEL 29 MMOL/L (20-31); CHLORIDE LEVEL 99 MMOL/L (98-107); CREATININE FOR GFR 0.64 MG/DL (0.55-1.30); GLOMERULAR FILTRATION RATE > 60.0 (>32); GLUCOSE, FASTING 181 MG/DL (74-106); SODIUM LEVEL 136 MMOL/L (136-145)
[2023-05-15] MEDS: methylPREDNISolone 125MG 2ML VIAL IV SCH ×2 (06:29→17:48)
[2023-05-15 06:38] LABS: PROCALCITONIN 3.63 ng/ml
[2023-05-15] MEDS: ENOXAPARIN 30MG/0.3ML SYRINGE (J1650 PER 10MG) SC SCH (08:39)
[2023-05-15] MEDS: DOXYCYCLINE HYCLATE 100MG TABLET PO SCH ×2 (08:39→21:04)
[2023-05-15] MEDS: NYSTATIN 500,000U/5ML SUSP UDC SS SCH ×3 (08:39→21:04)
[2023-05-15] MEDS: FLUoxetine 10 MG CAP PO SCH (08:39)
[2023-05-15] MEDS: ACETAMINOPHEN TAB 650MG DOSE (2X325MG) PO PRN (21:30)
[2023-05-16] VITALS (18 sets, daily range): BP systolic 135–167; BP diastolic 66–75; TEMP 97.2–98.2; O2SAT 81–99
[2023-05-16] MEDS: PIPERACILLIN/TAZOBACTAM SOD 3.375 GM in D5W MINI-BAG PLUS 50 ML IV SCH ×4 (03:16→20:31)
[2023-05-16 05:09] LABS: HEMATOCRIT 32.8 % (36.0-47.0); HEMOGLOBIN 10.8 g/dl (12.0-15.5); MEAN CORPUSCULAR HEMOGLOBIN 29.9 pg (27.0-33.0); MEAN CORPUSCULAR HGB CONC 32.9 g/dl (32.0-36.5); MEAN CORPUSCULAR VOLUME 90.9 fl (80.0-96.0); PLATELET COUNT, AUTOMATED 217 10^3/uL (150-450); RED BLOOD COUNT 3.61 10^6/uL (4.00-5.40); WHITE BLOOD COUNT 17.7 10^3/uL (4.0-10.0)
[2023-05-16 05:32] LABS: BLOOD UREA NITROGEN 35 MG/DL (9-23); CALCIUM LEVEL 8.4 MG/DL (8.3-10.6); CARBON DIOXIDE LEVEL 31 MMOL/L (20-31); CHLORIDE LEVEL 100 MMOL/L (98-107); CREATININE FOR GFR 0.59 MG/DL (0.55-1.30); GLOMERULAR FILTRATION RATE > 60.0 (>32); GLUCOSE, FASTING 168 MG/DL (74-106); MAGNESIUM LEVEL 1.6 MG/DL (1.8-2.4); POTASSIUM SERUM 3.8 MMOL/L (3.5-5.1); SODIUM LEVEL 137 MMOL/L (136-145)
[2023-05-16] MEDS: methylPREDNISolone 125MG 2ML VIAL IV SCH ×2 (06:08→17:05)
[2023-05-16 06:42] LABS: PROCALCITONIN 2.16 ng/ml
[2023-05-16] MEDS: DOXYCYCLINE HYCLATE 100MG TABLET PO SCH (07:56)
[2023-05-16] MEDS: NYSTATIN 500,000U/5ML SUSP UDC SS SCH ×3 (07:56→20:31)
[2023-05-16] MEDS: FLUoxetine 10 MG CAP PO SCH (07:56)
[2023-05-16] MEDS: ENOXAPARIN 30MG/0.3ML SYRINGE (J1650 PER 10MG) SC SCH (07:57)
[2023-05-16] MEDS: MAG SULF 1GM/100ML (MAG RUN) 1 GM in IV 1 EA IV SCH ×4 (07:57→13:08)
[2023-05-17] MEDS: PIPERACILLIN/TAZOBACTAM SOD 3.375 GM in D5W MINI-BAG PLUS 50 ML IV SCH ×4 (03:23→21:19)
[2023-05-17 04:49] VITALS: BP 158/74; TEMP 97.1; O2SAT 90
[2023-05-17] MEDS: methylPREDNISolone 125MG 2ML VIAL IV SCH ×2 (05:19→18:39)
[2023-05-17 06:40] LABS: HEMATOCRIT 35.2 % (36.0-47.0); HEMOGLOBIN 11.7 g/dl (12.0-15.5); MEAN CORPUSCULAR HGB CONC 33.2 g/dl (32.0-36.5); MEAN CORPUSCULAR VOLUME 90.3 fl (80.0-96.0); PLATELET COUNT, AUTOMATED 253 10^3/uL (150-450); WHITE BLOOD COUNT 24.8 10^3/uL (4.0-10.0)
[2023-05-17 07:04] LABS: BLOOD UREA NITROGEN 37 MG/DL (9-23); CALCIUM LEVEL 8.1 MG/DL (8.3-10.6); CARBON DIOXIDE LEVEL 30 MMOL/L (20-31); CHLORIDE LEVEL 99 MMOL/L (98-107); CREATININE FOR GFR 0.58 MG/DL (0.55-1.30); GLOMERULAR FILTRATION RATE > 60.0 (>32); GLUCOSE, FASTING 154 MG/DL (74-106); MAGNESIUM LEVEL 2.2 MG/DL (1.8-2.4); POTASSIUM SERUM 3.7 MMOL/L (3.5-5.1); SODIUM LEVEL 139 MMOL/L (136-145)
[2023-05-17 07:08] LABS: PROCALCITONIN 1.22 ng/ml
[2023-05-17 07:18] VITALS: BP 159/67; TEMP 97; O2SAT 93
[2023-05-17 08:11] LABS: BODY FLUID CULTURE Not indicated. (.); LEGIONELLA ANTIGEN URINE Negative (Negative); ORGANISM ID Not indicated. (.); SPECIMEN SOURCE Urine (.); URINE STREP PNEUMONIAE ANTIGEN Negative (Negative)
[2023-05-17] MEDS: FLUoxetine 10 MG CAP PO SCH (10:01)
[2023-05-17] MEDS: ENOXAPARIN 30MG/0.3ML SYRINGE (J1650 PER 10MG) SC SCH (10:01)
[2023-05-17] MEDS: NYSTATIN 500,000U/5ML SUSP UDC SS SCH ×3 (10:01→21:19)
[2023-05-17 11:52] VITALS: BP 145/67; TEMP 97.1; O2SAT 94
[2023-05-17 16:00] VITALS: BP 163/67; TEMP 97.3; O2SAT 98
[2023-05-17 20:16] VITALS: BP 163/84; TEMP 97.8; O2SAT 92
[2023-05-18] VITALS (8 sets, daily range): BP systolic 125–147; BP diastolic 61–73; TEMP 96.4–98.7; O2SAT 92–97
[2023-05-18] MEDS: PIPERACILLIN/TAZOBACTAM SOD 3.375 GM in D5W MINI-BAG PLUS 50 ML IV SCH (04:02)
[2023-05-18 06:10] LABS: HEMATOCRIT 33.4 % (36.0-47.0); HEMOGLOBIN 11.1 g/dl (12.0-15.5); MEAN CORPUSCULAR HEMOGLOBIN 30.3 pg (27.0-33.0); MEAN CORPUSCULAR HGB CONC 33.2 g/dl (32.0-36.5); MEAN CORPUSCULAR VOLUME 91.3 fl (80.0-96.0); PLATELET COUNT, AUTOMATED 250 10^3/uL (150-450); RED BLOOD COUNT 3.66 10^6/uL (4.00-5.40); WHITE BLOOD COUNT 26.7 10^3/uL (4.0-10.0)
[2023-05-18] MEDS: methylPREDNISolone 125MG 2ML VIAL IV SCH (06:27)
[2023-05-18 06:39] LABS: BLOOD UREA NITROGEN 40 MG/DL (9-23); CALCIUM LEVEL 8.3 MG/DL (8.3-10.6); CARBON DIOXIDE LEVEL 32 MMOL/L (20-31); CHLORIDE LEVEL 101 MMOL/L (98-107); GLOMERULAR FILTRATION RATE > 60.0 (>32); GLUCOSE, FASTING 143 MG/DL (74-106); POTASSIUM SERUM 3.9 MMOL/L (3.5-5.1); SODIUM LEVEL 141 MMOL/L (136-145)
[2023-05-18 06:44] LABS: PROCALCITONIN 0.79 ng/ml
[2023-05-18] MEDS: FLUoxetine 10 MG CAP PO SCH (10:06)
[2023-05-18] MEDS: AUGMENTIN 875 MG TAB PO SCH ×2 (10:07→20:44)
[2023-05-18] MEDS: ENOXAPARIN 30MG/0.3ML SYRINGE (J1650 PER 10MG) SC SCH (10:07)
[2023-05-18] MEDS: NYSTATIN 500,000U/5ML SUSP UDC SS SCH ×3 (10:07→20:44)
[2023-05-18] MEDS: APIXABAN 5 MG TAB (ELIQUIS) PO SCH ×2 (12:17→20:44)
[2023-05-18 12:28] LABS: ABG BASE EXCESS 6.7 (-2.0-2.0); ABG HCO3 30.9 MMOL/L (22.0-26.0); ABG O2 SATURATION 96.2 % (95.0-99.0); ABG PARTIAL PRESSURE CO2 43.1 mmHg (35.0-45.0); ABG PARTIAL PRESSURE O2 82.1 mmHg (75.0-100.0); ABG STANDARD HCO3 30.5 MMOL/L. (22.0-26.0); ABG TOTAL CO2 32.3 MMOL/L (23.0-31.0); ABG pH (ARTERIAL) 7.474 UNITS (7.350-7.450)
[2023-05-18] MEDS: LACTOBACILLUS ACIDOPHILUS CAP (BACID) PO SCH (18:05)
[2023-05-19] VITALS (10 sets, daily range): BP systolic 132–166; BP diastolic 65–68; TEMP 96.7–98.2; O2SAT 90–97
[2023-05-19 05:12] LABS: HEMATOCRIT 33.9 % (36.0-47.0); HEMOGLOBIN 11.1 g/dl (12.0-15.5); MEAN CORPUSCULAR HEMOGLOBIN 30.2 pg (27.0-33.0); MEAN CORPUSCULAR HGB CONC 32.7 g/dl (32.0-36.5); MEAN CORPUSCULAR VOLUME 92.1 fl (80.0-96.0); PLATELET COUNT, AUTOMATED 260 10^3/uL (150-450); RED BLOOD COUNT 3.68 10^6/uL (4.00-5.40)
[2023-05-19 05:18] LABS: WHITE BLOOD COUNT 32.3 10^3/uL (4.0-10.0)
[2023-05-19 05:36] LABS: BLOOD UREA NITROGEN 36 MG/DL (9-23); CALCIUM LEVEL 7.9 MG/DL (8.3-10.6); CARBON DIOXIDE LEVEL 30 MMOL/L (20-31); CHLORIDE LEVEL 104 MMOL/L (98-107); CREATININE FOR GFR 0.52 MG/DL (0.55-1.30); GLOMERULAR FILTRATION RATE > 60.0 (>32); GLUCOSE, FASTING 114 MG/DL (74-106); MAGNESIUM LEVEL 1.8 MG/DL (1.8-2.4); SODIUM LEVEL 142 MMOL/L (136-145)
[2023-05-19 05:41] LABS: PROCALCITONIN 0.52 ng/ml
[2023-05-19] MEDS: amLODIPine 5 MG TAB PO SCH (09:00)
[2023-05-19] MEDS: NYSTATIN 500,000U/5ML SUSP UDC SS SCH ×3 (10:05→20:51)
[2023-05-19] MEDS: LACTOBACILLUS ACIDOPHILUS CAP (BACID) PO SCH ×2 (10:05→16:30)
[2023-05-19] MEDS: FLUoxetine 10 MG CAP PO SCH (10:05)
[2023-05-19] MEDS: AUGMENTIN 875 MG TAB PO SCH ×2 (10:05→20:51)
[2023-05-19] MEDS: APIXABAN 5 MG TAB (ELIQUIS) PO SCH ×2 (10:06→20:51)
[2023-05-19] MEDS: methylPREDNISolone 125MG 2ML VIAL IV SCH (10:08)
[2023-05-19] MEDS: METOPROLOL SUCC *XL* 25MG TAB (TopROL *XL*) PO SCH (11:40)
[2023-05-20] VITALS (25 sets, daily range): BP systolic 130–174; BP diastolic 60–70; TEMP 96.7–97.7; O2SAT 88–98
[2023-05-20] MEDS: **hydrALAZINE HCL** 25 MG TAB PO PRN (00:09)
[2023-05-20 05:24] LABS: HEMATOCRIT 36.6 % (36.0-47.0); HEMOGLOBIN 11.8 g/dl (12.0-15.5); MEAN CORPUSCULAR HEMOGLOBIN 29.8 pg (27.0-33.0); MEAN CORPUSCULAR HGB CONC 32.2 g/dl (32.0-36.5); MEAN CORPUSCULAR VOLUME 92.4 fl (80.0-96.0); PLATELET COUNT, AUTOMATED 347 10^3/uL (150-450); RED BLOOD COUNT 3.96 10^6/uL (4.00-5.40)
[2023-05-20 05:34] LABS: BLOOD UREA NITROGEN 38 MG/DL (9-23); CALCIUM LEVEL 8.5 MG/DL (8.3-10.6); CARBON DIOXIDE LEVEL 32 MMOL/L (20-31); CHLORIDE LEVEL 102 MMOL/L (98-107); CREATININE FOR GFR 0.53 MG/DL (0.55-1.30); GLOMERULAR FILTRATION RATE > 60.0 (>32); GLUCOSE, FASTING 116 MG/DL (74-106); MAGNESIUM LEVEL 1.9 MG/DL (1.8-2.4); POTASSIUM SERUM 4.5 MMOL/L (3.5-5.1); SODIUM LEVEL 139 MMOL/L (136-145)
[2023-05-20 05:39] LABS: WHITE BLOOD COUNT 36.9 10^3/uL (4.0-10.0)
[2023-05-20 05:40] LABS: PROCALCITONIN 0.36 ng/ml
[2023-05-20] MEDS: amLODIPine 5 MG TAB PO SCH (08:27)
[2023-05-20] MEDS: APIXABAN 5 MG TAB (ELIQUIS) PO SCH ×2 (08:27→21:52)
[2023-05-20] MEDS: NYSTATIN 500,000U/5ML SUSP UDC SS SCH ×3 (08:27→21:52)
[2023-05-20] MEDS: FLUoxetine 10 MG CAP PO SCH (08:28)
[2023-05-20] MEDS: METOPROLOL SUCC *XL* 25MG TAB (TopROL *XL*) PO SCH (08:28)
[2023-05-20] MEDS: methylPREDNISolone 125MG 2ML VIAL IV SCH (08:28)
[2023-05-20] MEDS: LACTOBACILLUS ACIDOPHILUS CAP (BACID) PO SCH ×2 (08:28→18:43)
[2023-05-20] MEDS: AUGMENTIN 875 MG TAB PO SCH (08:28)
[2023-05-20 12:49] LABS: CLOSTRIDIUM DIFFICILE PCR NEGATIVE (NEGATIVE)
[2023-05-20] MEDS: BETHANECHOL 10 MG TAB PO SCH ×2 (15:40→21:52)
[2023-05-21] VITALS (11 sets, daily range): BP systolic 138–158; BP diastolic 50–71; TEMP 96.3–97.9; O2SAT 87–97
[2023-05-21 06:33] LABS: HEMATOCRIT 31.4 % (36.0-47.0); HEMOGLOBIN 10.4 g/dl (12.0-15.5); MEAN CORPUSCULAR HEMOGLOBIN 30.2 pg (27.0-33.0); MEAN CORPUSCULAR HGB CONC 33.1 g/dl (32.0-36.5); MEAN CORPUSCULAR VOLUME 91.3 fl (80.0-96.0); PLATELET COUNT, AUTOMATED 347 10^3/uL (150-450); RED BLOOD COUNT 3.44 10^6/uL (4.00-5.40)
[2023-05-21 06:34] LABS: WHITE BLOOD COUNT 34.3 10^3/uL (4.0-10.0)
[2023-05-21 07:07] LABS: BLOOD UREA NITROGEN 33 MG/DL (9-23); CALCIUM LEVEL 8.2 MG/DL (8.3-10.6); CARBON DIOXIDE LEVEL 30 MMOL/L (20-31); CHLORIDE LEVEL 103 MMOL/L (98-107); GLOMERULAR FILTRATION RATE > 60.0 (>32); GLUCOSE, FASTING 92 MG/DL (74-106); MAGNESIUM LEVEL 1.8 MG/DL (1.8-2.4); SODIUM LEVEL 138 MMOL/L (136-145)
[2023-05-21 07:13] LABS: PROCALCITONIN 0.32 ng/ml
[2023-05-21] MEDS: METOPROLOL SUCC *XL* 25MG TAB (TopROL *XL*) PO SCH (08:14)
[2023-05-21] MEDS: FLUoxetine 10 MG CAP PO SCH (08:14)
[2023-05-21] MEDS: predniSONE 20 MG TAB PO SCH (08:14)
[2023-05-21] MEDS: amLODIPine 5 MG TAB PO SCH (08:14)
[2023-05-21] MEDS: NYSTATIN 500,000U/5ML SUSP UDC SS SCH ×3 (08:14→20:18)
[2023-05-21] MEDS: LACTOBACILLUS ACIDOPHILUS CAP (BACID) PO SCH ×2 (08:15→16:57)
[2023-05-21] MEDS: APIXABAN 5 MG TAB (ELIQUIS) PO SCH ×2 (08:15→20:18)
[2023-05-22 03:57] VITALS: BP 168/82; TEMP 97; O2SAT 96
[2023-05-22 08:42] LABS: HEMATOCRIT 33.4 % (36.0-47.0); HEMOGLOBIN 10.9 g/dl (12.0-15.5); MEAN CORPUSCULAR HEMOGLOBIN 30.2 pg (27.0-33.0); MEAN CORPUSCULAR HGB CONC 32.6 g/dl (32.0-36.5); MEAN CORPUSCULAR VOLUME 92.5 fl (80.0-96.0); PLATELET COUNT, AUTOMATED 386 10^3/uL (150-450); RED BLOOD COUNT 3.61 10^6/uL (4.00-5.40)
[2023-05-22 09:06] LABS: BLOOD UREA NITROGEN 30 MG/DL (9-23); CALCIUM LEVEL 7.9 MG/DL (8.3-10.6); CARBON DIOXIDE LEVEL 28 MMOL/L (20-31); CHLORIDE LEVEL 103 MMOL/L (98-107); CREATININE FOR GFR 0.47 MG/DL (0.55-1.30); GLOMERULAR FILTRATION RATE > 60.0 (>32); GLUCOSE, FASTING 129 MG/DL (74-106); MAGNESIUM LEVEL 1.5 MG/DL (1.8-2.4); POTASSIUM SERUM 4.6 MMOL/L (3.5-5.1); SODIUM LEVEL 138 MMOL/L (136-145)
[2023-05-22 09:17] LABS: PROCALCITONIN 0.22 ng/ml
[2023-05-22] MEDS: FLUoxetine 10 MG CAP PO SCH (11:16)
[2023-05-22] MEDS: predniSONE 20 MG TAB PO SCH (11:16)
[2023-05-22] MEDS: LACTOBACILLUS ACIDOPHILUS CAP (BACID) PO SCH ×2 (11:16→17:30)
[2023-05-22] MEDS: NYSTATIN 500,000U/5ML SUSP UDC SS SCH ×3 (11:17→21:33)
[2023-05-22] MEDS: APIXABAN 5 MG TAB (ELIQUIS) PO SCH ×2 (11:17→21:33)
[2023-05-22 11:20] VITALS: BP 125/65; TEMP 96.6; O2SAT 89
[2023-05-22] MEDS: METOPROLOL SUCC *XL* 25MG TAB (TopROL *XL*) PO SCH (11:27)
[2023-05-22 11:28] VITALS: O2SAT 93
[2023-05-22 19:01] VITALS: BP 142/64; TEMP 97.4; O2SAT 95
[2023-05-23 03:30] VITALS: BP 158/66; TEMP 97.6; O2SAT 93
[2023-05-23 05:35] LABS: HEMATOCRIT 30.7 % (36.0-47.0); HEMOGLOBIN 10.1 g/dl (12.0-15.5); MEAN CORPUSCULAR HEMOGLOBIN 30.1 pg (27.0-33.0); MEAN CORPUSCULAR HGB CONC 32.9 g/dl (32.0-36.5); MEAN CORPUSCULAR VOLUME 91.6 fl (80.0-96.0); PLATELET COUNT, AUTOMATED 354 10^3/uL (150-450); RED BLOOD COUNT 3.35 10^6/uL (4.00-5.40)
[2023-05-23 05:38] LABS: WHITE BLOOD COUNT 34.7 10^3/uL (4.0-10.0)
[2023-05-23 05:54] LABS: BLOOD UREA NITROGEN 28 MG/DL (9-23); CALCIUM LEVEL 8.1 MG/DL (8.3-10.6); CARBON DIOXIDE LEVEL 27 MMOL/L (20-31); CHLORIDE LEVEL 104 MMOL/L (98-107); CREATININE FOR GFR 0.49 MG/DL (0.55-1.30); GLOMERULAR FILTRATION RATE > 60.0 (>32); GLUCOSE, FASTING 105 MG/DL (74-106); MAGNESIUM LEVEL 1.7 MG/DL (1.8-2.4); POTASSIUM SERUM 4.8 MMOL/L (3.5-5.1); SODIUM LEVEL 138 MMOL/L (136-145)
[2023-05-23 07:52] VITALS: BP 152/68; TEMP 97.4; O2SAT 94
[2023-05-23] MEDS: LACTOBACILLUS ACIDOPHILUS CAP (BACID) PO SCH ×2 (09:26→17:29)
[2023-05-23] MEDS: NYSTATIN 500,000U/5ML SUSP UDC SS SCH ×3 (09:26→20:44)
[2023-05-23] MEDS: APIXABAN 5 MG TAB (ELIQUIS) PO SCH ×2 (09:26→20:44)
[2023-05-23] MEDS: predniSONE 20 MG TAB PO SCH (09:27)
[2023-05-23] MEDS: METOPROLOL SUCC *XL* 25MG TAB (TopROL *XL*) PO SCH (09:27)
[2023-05-23] MEDS ORDERED: FUROSEMIDE 40MG/4ML VIAL IV ONE (11:00)
[2023-05-23] MEDS: FLUoxetine 10 MG CAP PO SCH (11:46)
[2023-05-23 12:00] VITALS: BP 146/82; TEMP 97.2; O2SAT 93
[2023-05-23 13:22] LABS: BASO # 0.1 10^3/uL (0.0-0.2); BASO % 0.2 % (0.0-1.0); EOS # 0.2 10^3/uL (0.0-0.5); EOS % 0.6 % (0.0-3.0); MONO % 5.3 % (2.0-8.0); NEUTROPHILS # 30.9 10^3/uL (1.5-8.5); NEUTROPHILS % 88.9 % (36.0-66.0)
[2023-05-23] MEDS ORDERED: LIDOCAINE 1% MDV 20ML VIAL As Ordered ONE (13:47)
[2023-05-23 14:10] LABS: MONO # 1.8 10^3/uL (0.0-0.8)
[2023-05-23 16:13] VITALS: BP 173/73; TEMP 97; O2SAT 97
[2023-05-23 16:52] LABS: IMMUNOGLOBULIN A 266.8 MG/DL (40-350); IMMUNOGLOBULIN M 42.7 MG/DL (50-300)
[2023-05-23] MEDS: methylPREDNISolone 125MG 2ML VIAL IV SCH (17:29)
[2023-05-23] MEDS: SODIUM CHLORIDE 0.9% INJ 10 ML SYR IV SCH (17:30)
[2023-05-23 19:08] LABS: CLOSTRIDIUM DIFFICILE PCR NEGATIVE (NEGATIVE)
[2023-05-23 20:00] VITALS: BP 138/60; TEMP 96; O2SAT 96
[2023-05-24] VITALS (12 sets, daily range): BP systolic 122–152; BP diastolic 62–86; TEMP 93.8–96.7; O2SAT 89–98
[2023-05-24] MEDS: SODIUM CHLORIDE 0.9% INJ 10 ML SYR IV SCH ×2 (05:30→17:10)
[2023-05-24 05:52] LABS: BASO % 0.1 % (0.0-1.0); HEMATOCRIT 30.7 % (36.0-47.0); HEMOGLOBIN 10.3 g/dl (12.0-15.5); LYMPH # 0.5 10^3/uL (1.5-5.0); LYMPH % 1.6 % (24.0-44.0); MEAN CORPUSCULAR HEMOGLOBIN 30.3 pg (27.0-33.0); MEAN CORPUSCULAR HGB CONC 33.6 g/dl (32.0-36.5); MEAN CORPUSCULAR VOLUME 90.3 fl (80.0-96.0); MONO # 0.4 10^3/uL (0.0-0.8); MONO % 1.4 % (2.0-8.0); NEUTROPHILS # 29.7 10^3/uL (1.5-8.5); NEUTROPHILS % 94.4 % (36.0-66.0); PLATELET COUNT, AUTOMATED 400 10^3/uL (150-450)
[2023-05-24 06:00] LABS: WHITE BLOOD COUNT 31.5 10^3/uL (4.0-10.0)
[2023-05-24 06:27] LABS: ALBUMIN 2.4 G/DL (3.2-5.2); ALKALINE PHOSPHATASE 126 U/L (46-116); ALT/SGPT 23 U/L (7.0-40); AST/SGOT 22 U/L (<34); BILIRUBIN,TOTAL 0.5 MG/DL (0.3-1.2); BLOOD UREA NITROGEN 34 MG/DL (9-23); CALCIUM LEVEL 8.4 MG/DL (8.3-10.6); CARBON DIOXIDE LEVEL 30 MMOL/L (20-31); CHLORIDE LEVEL 98 MMOL/L (98-107); CREATININE FOR GFR 0.53 MG/DL (0.55-1.30); GLOMERULAR FILTRATION RATE > 60.0 (>32); GLUCOSE, FASTING 191 MG/DL (74-106); POTASSIUM SERUM 4.4 MMOL/L (3.5-5.1); SODIUM LEVEL 135 MMOL/L (136-145); TOTAL PROTEIN 5.3 G/DL (5.7-8.2)
[2023-05-24] MEDS: LACTOBACILLUS ACIDOPHILUS CAP (BACID) PO SCH ×2 (08:14→17:08)
[2023-05-24] MEDS: FLUoxetine 10 MG CAP PO SCH (08:14)
[2023-05-24] MEDS: METOPROLOL SUCC *XL* 25MG TAB (TopROL *XL*) PO SCH (08:14)
[2023-05-24] MEDS: NYSTATIN 500,000U/5ML SUSP UDC SS SCH ×3 (08:15→21:16)
[2023-05-24] MEDS: methylPREDNISolone 125MG 2ML VIAL IV SCH ×3 (08:15→17:08)
[2023-05-24] MEDS: APIXABAN 5 MG TAB (ELIQUIS) PO SCH ×2 (08:15→21:16)
[2023-05-24] MEDS: SODIUM CHLORIDE 0.9% INJ 10 ML SYR IV PRN (17:10)
[2023-05-24] MEDS: VORICONAZOLE 200MG TABLET (VFEND) PO SCH (22:28)
[2023-05-25] VITALS (16 sets, daily range): BP systolic 110–157; BP diastolic 54–86; TEMP 96.1–97.5; O2SAT 84–100
[2023-05-25] MEDS: methylPREDNISolone 125MG 2ML VIAL IV SCH ×3 (00:06→17:05)
[2023-05-25] MEDS: SODIUM CHLORIDE 0.9% INJ 10 ML SYR IV SCH ×2 (05:02→17:06)
[2023-05-25 05:06] LABS: HEMATOCRIT 28.4 % (36.0-47.0); HEMOGLOBIN 9.5 g/dl (12.0-15.5); MEAN CORPUSCULAR HEMOGLOBIN 30.4 pg (27.0-33.0); MEAN CORPUSCULAR HGB CONC 33.5 g/dl (32.0-36.5); MEAN CORPUSCULAR VOLUME 90.7 fl (80.0-96.0); PLATELET COUNT, AUTOMATED 325 10^3/uL (150-450); RED BLOOD COUNT 3.13 10^6/uL (4.00-5.40)
[2023-05-25 05:17] LABS: WHITE BLOOD COUNT 50.8 10^3/uL (4.0-10.0)
[2023-05-25 05:39] LABS: ALBUMIN 2.2 G/DL (3.2-5.2); ALKALINE PHOSPHATASE 116 U/L (46-116); ALT/SGPT 22 U/L (7.0-40); AST/SGOT 21 U/L (<34); BILIRUBIN,TOTAL 0.5 MG/DL (0.3-1.2); BLOOD UREA NITROGEN 49 MG/DL (9-23); CALCIUM LEVEL 8.4 MG/DL (8.3-10.6); CARBON DIOXIDE LEVEL 31 MMOL/L (20-31); CHLORIDE LEVEL 99 MMOL/L (98-107); CREATININE FOR GFR 0.81 MG/DL (0.55-1.30); GLOMERULAR FILTRATION RATE > 60.0 (>32); GLUCOSE, FASTING 153 MG/DL (74-106); MAGNESIUM LEVEL 1.7 MG/DL (1.8-2.4); POTASSIUM SERUM 4.2 MMOL/L (3.5-5.1); SODIUM LEVEL 136 MMOL/L (136-145); TOTAL PROTEIN 4.6 G/DL (5.7-8.2)
[2023-05-25] MEDS ORDERED: predniSONE 20 MG TAB PO SCH (09:00)
[2023-05-25] MEDS: METOPROLOL SUCC *XL* 25MG TAB (TopROL *XL*) PO SCH (09:00)
[2023-05-25] MEDS: VORICONAZOLE 200MG TABLET (VFEND) PO SCH ×2 (09:35→20:37)
[2023-05-25] MEDS: NYSTATIN 500,000U/5ML SUSP UDC SS SCH (09:35)
[2023-05-25] MEDS: LACTOBACILLUS ACIDOPHILUS CAP (BACID) PO SCH ×2 (09:36→17:07)
[2023-05-25] MEDS: APIXABAN 5 MG TAB (ELIQUIS) PO SCH ×2 (09:36→20:37)
[2023-05-25] MEDS: FLUoxetine 10 MG CAP PO SCH (09:36)
[2023-05-25] MEDS: MAG SULF 1GM/100ML (MAG RUN) 1 GM in IV 1 EA IV SCH ×2 (11:41→12:56)
[2023-05-25] MEDS: SODIUM CHLORIDE 0.9% INJ 10 ML SYR IV PRN (17:07)
[2023-05-25] MEDS ORDERED: APIXABAN 5 MG TAB (ELIQUIS) PO SCH (21:00)
[2023-05-26] VITALS (22 sets, daily range): BP systolic 133–164; BP diastolic 61–72; TEMP 95.7–98.3; O2SAT 86–96
[2023-05-26] MEDS: SODIUM CHLORIDE 0.9% INJ 10 ML SYR IV SCH ×2 (05:57→17:36)
[2023-05-26 06:26] LABS: HEMATOCRIT 28.3 % (36.0-47.0); HEMOGLOBIN 9.5 g/dl (12.0-15.5); MEAN CORPUSCULAR HEMOGLOBIN 30.5 pg (27.0-33.0); MEAN CORPUSCULAR HGB CONC 33.6 g/dl (32.0-36.5); PLATELET COUNT, AUTOMATED 335 10^3/uL (150-450); RED BLOOD COUNT 3.11 10^6/uL (4.00-5.40)
[2023-05-26 06:30] LABS: WHITE BLOOD COUNT 49.7 10^3/uL (4.0-10.0)
[2023-05-26 07:11] LABS: LYMPHOCYTES 1 % (16-44); MONOCYTES 1 % (0-5); NEUTROPHILS 98 % (28-66)
[2023-05-26 07:12] LABS: PLATELET ESTIMATE NORMAL (NORMAL)
[2023-05-26 07:36] LABS: ALBUMIN 2.4 G/DL (3.2-5.2); BILIRUBIN,TOTAL 0.5 MG/DL (0.3-1.2); CALCIUM LEVEL 8.4 MG/DL (8.3-10.6); CREATININE FOR GFR 0.98 MG/DL (0.55-1.30); GLOMERULAR FILTRATION RATE 57.2 (>32); TOTAL PROTEIN 5.1 G/DL (5.7-8.2)
[2023-05-26] MEDS: FLUoxetine 10 MG CAP PO SCH (08:27)
[2023-05-26] MEDS: APIXABAN 5 MG TAB (ELIQUIS) PO SCH ×2 (08:27→20:39)
[2023-05-26] MEDS: LACTOBACILLUS ACIDOPHILUS CAP (BACID) PO SCH ×2 (08:28→17:34)
[2023-05-26] MEDS: METOPROLOL SUCC *XL* 25MG TAB (TopROL *XL*) PO SCH (08:28)
[2023-05-26] MEDS: methylPREDNISolone 125MG 2ML VIAL IV SCH ×3 (08:29→17:34)
[2023-05-26] MEDS: VORICONAZOLE 200MG TABLET (VFEND) PO SCH ×2 (08:29→20:39)
[2023-05-26] MEDS: TRIPLE PASTE 2OZ OINTMENT TOP SCH ×3 (10:34→20:39)
[2023-05-27] VITALS (29 sets, daily range): BP systolic 121–160; BP diastolic 56–88; TEMP 96–97.6; O2SAT 88–99
[2023-05-27] MEDS: SODIUM CHLORIDE 0.9% INJ 10 ML SYR IV SCH ×2 (05:08→09:55)
[2023-05-27 06:38] LABS: BASO # 0.1 10^3/uL (0.0-0.2); BASO % 0.2 % (0.0-1.0); HEMATOCRIT 25.7 % (36.0-47.0); HEMOGLOBIN 8.6 g/dl (12.0-15.5); LYMPH # 0.3 10^3/uL (1.5-5.0); LYMPH % 0.7 % (24.0-44.0); MEAN CORPUSCULAR HEMOGLOBIN 30.6 pg (27.0-33.0); MEAN CORPUSCULAR HGB CONC 33.5 g/dl (32.0-36.5); MEAN CORPUSCULAR VOLUME 91.5 fl (80.0-96.0); MONO # 0.8 10^3/uL (0.0-0.8); MONO % 1.9 % (2.0-8.0); NEUTROPHILS # 41.7 10^3/uL (1.5-8.5); PLATELET COUNT, AUTOMATED 278 10^3/uL (150-450); RED BLOOD COUNT 2.81 10^6/uL (4.00-5.40)
[2023-05-27 06:49] LABS: WHITE BLOOD COUNT 44.3 10^3/uL (4.0-10.0)
[2023-05-27 07:13] LABS: ALBUMIN 2.2 G/DL (3.2-5.2); ALKALINE PHOSPHATASE 127 U/L (46-116); ALT/SGPT 21 U/L (7.0-40); AST/SGOT 22 U/L (<34); BILIRUBIN,TOTAL 0.5 MG/DL (0.3-1.2); BLOOD UREA NITROGEN 54 MG/DL (9-23); CALCIUM LEVEL 8.3 MG/DL (8.3-10.6); CARBON DIOXIDE LEVEL 34 MMOL/L (20-31); CHLORIDE LEVEL 99 MMOL/L (98-107); CREATININE FOR GFR 0.78 MG/DL (0.55-1.30); GLOMERULAR FILTRATION RATE > 60.0 (>32); GLUCOSE, FASTING 177 MG/DL (74-106); POTASSIUM SERUM 5.3 MMOL/L (3.5-5.1); SODIUM LEVEL 137 MMOL/L (136-145); TOTAL PROTEIN 4.8 G/DL (5.7-8.2)
[2023-05-27] MEDS ORDERED: BACTRIM 80MG/400MG TAB PO SCH (09:00)
[2023-05-27] MEDS ORDERED: PATIROMER SORBITEX CALCIUM 8.4 GM POWDER PACKET (VELTASSA) PO ONE (09:00)
[2023-05-27] MEDS ORDERED: methylPREDNISolone 125MG 2ML VIAL IV SCH (09:00)
[2023-05-27] MEDS: VORICONAZOLE 200MG TABLET (VFEND) PO SCH ×2 (09:53→20:30)
[2023-05-27] MEDS: METOPROLOL SUCC *XL* 25MG TAB (TopROL *XL*) PO SCH (09:53)
[2023-05-27] MEDS: LACTOBACILLUS ACIDOPHILUS CAP (BACID) PO SCH ×2 (09:53→18:05)
[2023-05-27] MEDS: FLUoxetine 10 MG CAP PO SCH (09:54)
[2023-05-27] MEDS: TRIPLE PASTE 2OZ OINTMENT TOP SCH ×3 (09:54→20:30)
[2023-05-27] MEDS: APIXABAN 5 MG TAB (ELIQUIS) PO SCH ×2 (09:54→20:30)
[2023-05-27] MEDS: ATOVAQUONE SUSP 750MG/5ML 210 ML BTL PO SCH (11:04)
[2023-05-27] MEDS: SODIUM CHLORIDE 0.9% INJ 10 ML SYR IV PRN (18:05)
[2023-05-28] VITALS (27 sets, daily range): BP systolic 126–148; BP diastolic 50–65; TEMP 97.1–98.6; O2SAT 88–99
[2023-05-28] MEDS: SODIUM CHLORIDE 0.9% INJ 10 ML SYR IV SCH ×2 (04:51→17:20)
[2023-05-28 05:25] LABS: HEMATOCRIT 27.1 % (36.0-47.0); HEMOGLOBIN 8.9 g/dl (12.0-15.5); MEAN CORPUSCULAR HEMOGLOBIN 30.2 pg (27.0-33.0); MEAN CORPUSCULAR HGB CONC 32.8 g/dl (32.0-36.5); MEAN CORPUSCULAR VOLUME 91.9 fl (80.0-96.0); PLATELET COUNT, AUTOMATED 281 10^3/uL (150-450); RED BLOOD COUNT 2.95 10^6/uL (4.00-5.40)
[2023-05-28 05:35] LABS: WHITE BLOOD COUNT 47.5 10^3/uL (4.0-10.0)
[2023-05-28 05:42] LABS: ALBUMIN 2.3 G/DL (3.2-5.2); ALKALINE PHOSPHATASE 137 U/L (46-116); ALT/SGPT 27 U/L (7.0-40); AST/SGOT 24 U/L (<34); BILIRUBIN,TOTAL 0.5 MG/DL (0.3-1.2); BLOOD UREA NITROGEN 50 MG/DL (9-23); CALCIUM LEVEL 8.4 MG/DL (8.3-10.6); CARBON DIOXIDE LEVEL 29 MMOL/L (20-31); CHLORIDE LEVEL 101 MMOL/L (98-107); CREATININE FOR GFR 0.63 MG/DL (0.55-1.30); GLOMERULAR FILTRATION RATE > 60.0 (>32); GLUCOSE, FASTING 136 MG/DL (74-106); SODIUM LEVEL 135 MMOL/L (136-145); TOTAL PROTEIN 4.8 G/DL (5.7-8.2)
[2023-05-28 06:25] LABS: LYMPHOCYTES 1 % (16-44); MONOCYTES 2 % (0-5); NEUTROPHILS 96 % (28-66)
[2023-05-28 06:26] LABS: ANISOCYTOSIS 1+; PLATELET ESTIMATE NORMAL (NORMAL)
[2023-05-28] MEDS: ATOVAQUONE SUSP 750MG/5ML 210 ML BTL PO SCH (10:05)
[2023-05-28] MEDS: LACTOBACILLUS ACIDOPHILUS CAP (BACID) PO SCH ×2 (10:05→17:18)
[2023-05-28] MEDS: FLUoxetine 10 MG CAP PO SCH (10:05)
[2023-05-28] MEDS: LOMOTIL 2.5MG/0.025MG TABLET PO PRN (10:05)
[2023-05-28] MEDS: VORICONAZOLE 200MG TABLET (VFEND) PO SCH ×2 (10:05→20:41)
[2023-05-28] MEDS: APIXABAN 5 MG TAB (ELIQUIS) PO SCH ×2 (10:06→20:41)
[2023-05-28] MEDS: predniSONE 20 MG TAB PO SCH (10:06)
[2023-05-28] MEDS: amLODIPine 5 MG TAB PO SCH (10:06)
[2023-05-28] MEDS: METOPROLOL SUCC *XL* 25MG TAB (TopROL *XL*) PO SCH (10:06)
[2023-05-28] MEDS: TRIPLE PASTE 2OZ OINTMENT TOP SCH ×3 (10:07→21:19)
[2023-05-28] MEDS ORDERED: PATIROMER SORBITEX CALCIUM 8.4 GM POWDER PACKET (VELTASSA) PO ONE (10:30)
[2023-05-28 15:34] LABS: ABG BASE EXCESS 5.9 (-2.0-2.0); ABG HCO3 30.2 MMOL/L (22.0-26.0); ABG PARTIAL PRESSURE CO2 42.9 mmHg (35.0-45.0); ABG PARTIAL PRESSURE O2 55.9 mmHg (75.0-100.0); ABG STANDARD HCO3 29.7 MMOL/L. (22.0-26.0); ABG TOTAL CO2 31.6 MMOL/L (23.0-31.0); ABG pH (ARTERIAL) 7.466 UNITS (7.350-7.450)
[2023-05-29] VITALS (37 sets, daily range): BP systolic 121–144; BP diastolic 56–66; PULSE 72; TEMP 96.8–97.6; O2SAT 82–99
[2023-05-29] MEDS: SODIUM CHLORIDE 0.9% INJ 10 ML SYR IV SCH ×2 (05:11→17:04)
[2023-05-29 05:18] LABS: BASO # 0.1 10^3/uL (0.0-0.2); BASO % 0.2 % (0.0-1.0); HEMATOCRIT 28.6 % (36.0-47.0); HEMOGLOBIN 9.3 g/dl (12.0-15.5); LYMPH # 0.6 10^3/uL (1.5-5.0); LYMPH % 1.3 % (24.0-44.0); MEAN CORPUSCULAR HEMOGLOBIN 30.1 pg (27.0-33.0); MEAN CORPUSCULAR HGB CONC 32.5 g/dl (32.0-36.5); MEAN CORPUSCULAR VOLUME 92.6 fl (80.0-96.0); MONO % 3.8 % (2.0-8.0); NEUTROPHILS # 42.5 10^3/uL (1.5-8.5); NEUTROPHILS % 93.5 % (36.0-66.0); PLATELET COUNT, AUTOMATED 246 10^3/uL (150-450); RED BLOOD COUNT 3.09 10^6/uL (4.00-5.40)
[2023-05-29 05:26] LABS: MONO # 1.7 10^3/uL (0.0-0.8); WHITE BLOOD COUNT 45.5 10^3/uL (4.0-10.0)
[2023-05-29 05:45] LABS: ALBUMIN 2.2 G/DL (3.2-5.2); ALKALINE PHOSPHATASE 186 U/L (46-116); ALT/SGPT 74 U/L (7.0-40); AST/SGOT 55 U/L (<34); BILIRUBIN,TOTAL 0.5 MG/DL (0.3-1.2); BLOOD UREA NITROGEN 48 MG/DL (9-23); CALCIUM LEVEL 8.5 MG/DL (8.3-10.6); CARBON DIOXIDE LEVEL 30 MMOL/L (20-31); CHLORIDE LEVEL 103 MMOL/L (98-107); CREATININE FOR GFR 0.59 MG/DL (0.55-1.30); GLOMERULAR FILTRATION RATE > 60.0 (>32); GLUCOSE, FASTING 120 MG/DL (74-106); MAGNESIUM LEVEL 1.7 MG/DL (1.8-2.4); POTASSIUM SERUM 5.1 MMOL/L (3.5-5.1); SODIUM LEVEL 135 MMOL/L (136-145); TOTAL PROTEIN 4.9 G/DL (5.7-8.2)
[2023-05-29] MEDS: ATOVAQUONE SUSP 750MG/5ML 210 ML BTL PO SCH (09:26)
[2023-05-29] MEDS: TRIPLE PASTE 2OZ OINTMENT TOP SCH ×3 (09:26→20:52)
[2023-05-29] MEDS: predniSONE 20 MG TAB PO SCH (09:27)
[2023-05-29] MEDS: METOPROLOL SUCC *XL* 25MG TAB (TopROL *XL*) PO SCH (09:27)
[2023-05-29] MEDS: APIXABAN 5 MG TAB (ELIQUIS) PO SCH ×2 (09:27→20:51)
[2023-05-29] MEDS: amLODIPine 5 MG TAB PO SCH (09:27)
[2023-05-29] MEDS: FLUoxetine 10 MG CAP PO SCH (09:27)
[2023-05-29] MEDS: VORICONAZOLE 200MG TABLET (VFEND) PO SCH ×2 (09:27→20:51)
[2023-05-29] MEDS: LACTOBACILLUS ACIDOPHILUS CAP (BACID) PO SCH ×2 (09:27→17:04)
[2023-05-29] MEDS: PATIROMER SORBITEX CALCIUM 8.4 GM POWDER PACKET (VELTASSA) PO SCH (12:19)
[2023-05-29] MEDS: MAG SULF 1GM/100ML (MAG RUN) 1 GM in IV 1 EA IV SCH ×2 (12:20→13:54)
[2023-05-29] MEDS: LOMOTIL 2.5MG/0.025MG TABLET PO PRN (17:04)
[2023-05-29 17:06] LABS: ASPERGILLUS FLAVUS ABY Negative (Neg:<1:1); ASPERGILLUS FUMIGATUS ABY Negative (Neg:<1:1); ASPERGILLUS GALACTOMANNAN AG 0.06 Index (0.00-0.49); ASPERGILLUS NIGER ABY Negative (Neg:<1:1); CRYPTOCOCCUS ANTIBODY SERUM Negative (Neg:<1:2); CRYPTOCOCCUS ANTIGEN SER Negative (Negative)
[2023-05-30] VITALS (28 sets, daily range): BP systolic 129–156; BP diastolic 56–88; TEMP 96.1–97.9; O2SAT 89–99
[2023-05-30] MEDS: SODIUM CHLORIDE 0.9% INJ 10 ML SYR IV SCH ×2 (05:52→17:32)
[2023-05-30 08:09] LABS: BASO # 0.1 10^3/uL (0.0-0.2); BASO % 0.1 % (0.0-1.0); EOS # 0.1 10^3/uL (0.0-0.5); EOS % 0.3 % (0.0-3.0); HEMATOCRIT 26.8 % (36.0-47.0); HEMOGLOBIN 8.8 g/dl (12.0-15.5); LYMPH # 0.9 10^3/uL (1.5-5.0); LYMPH % 2.5 % (24.0-44.0); MEAN CORPUSCULAR HEMOGLOBIN 30.3 pg (27.0-33.0); MEAN CORPUSCULAR HGB CONC 32.8 g/dl (32.0-36.5); MEAN CORPUSCULAR VOLUME 92.4 fl (80.0-96.0); MONO # 1.3 10^3/uL (0.0-0.8); MONO % 3.7 % (2.0-8.0); NEUTROPHILS # 31.6 10^3/uL (1.5-8.5); NEUTROPHILS % 92.3 % (36.0-66.0); PLATELET COUNT, AUTOMATED 253 10^3/uL (150-450)
[2023-05-30 08:17] LABS: WHITE BLOOD COUNT 34.2 10^3/uL (4.0-10.0)
[2023-05-30 08:39] LABS: BLOOD UREA NITROGEN 48 MG/DL (9-23); CALCIUM LEVEL 8.1 MG/DL (8.3-10.6); CARBON DIOXIDE LEVEL 30 MMOL/L (20-31); CHLORIDE LEVEL 102 MMOL/L (98-107); CREATININE FOR GFR 0.57 MG/DL (0.55-1.30); GLOMERULAR FILTRATION RATE > 60.0 (>32); GLUCOSE, FASTING 110 MG/DL (74-106); POTASSIUM SERUM 4.9 MMOL/L (3.5-5.1); SODIUM LEVEL 135 MMOL/L (136-145)
[2023-05-30] MEDS ORDERED: predniSONE 10MG TAB PO SCH (09:00)
[2023-05-30] MEDS: ATOVAQUONE SUSP 750MG/5ML 210 ML BTL PO SCH (09:48)
[2023-05-30] MEDS: FLUoxetine 10 MG CAP PO SCH (09:49)
[2023-05-30] MEDS: amLODIPine 5 MG TAB PO SCH (09:49)
[2023-05-30] MEDS: predniSONE 20 MG TAB PO SCH (09:49)
[2023-05-30] MEDS: METOPROLOL SUCC *XL* 25MG TAB (TopROL *XL*) PO SCH (09:49)
[2023-05-30] MEDS: APIXABAN 5 MG TAB (ELIQUIS) PO SCH ×2 (09:49→20:28)
[2023-05-30] MEDS: LACTOBACILLUS ACIDOPHILUS CAP (BACID) PO SCH ×2 (09:49→17:30)
[2023-05-30] MEDS: TRIPLE PASTE 2OZ OINTMENT TOP SCH ×3 (09:50→20:28)
[2023-05-30] MEDS: LOMOTIL 2.5MG/0.025MG TABLET PO PRN (09:55)
[2023-05-30] MEDS: PATIROMER SORBITEX CALCIUM 8.4 GM POWDER PACKET (VELTASSA) PO SCH (12:07)
[2023-05-30] MEDS: METAMUCIL (PSYLLIUM) PACKET PO SCH (12:07)
[2023-05-30] MEDS: VORICONAZOLE 200MG TABLET (VFEND) PO SCH (12:08)
[2023-05-30] MEDS: LOPERAMIDE 2 MG CAPLET PO SCH ×3 (12:08→20:28)
[2023-05-31] VITALS (35 sets, daily range): BP systolic 120–160; BP diastolic 48–66; TEMP 94.7–98.2; O2SAT 80–97
[2023-05-31] MEDS: SODIUM CHLORIDE 0.9% INJ 10 ML SYR IV SCH ×2 (05:12→17:41)
[2023-05-31 06:42] LABS: BASO # 0.1 10^3/uL (0.0-0.2); BASO % 0.2 % (0.0-1.0); EOS # 0.1 10^3/uL (0.0-0.5); EOS % 0.2 % (0.0-3.0); HEMATOCRIT 25.7 % (36.0-47.0); HEMOGLOBIN 8.3 g/dl (12.0-15.5); LYMPH # 0.6 10^3/uL (1.5-5.0); LYMPH % 1.7 % (24.0-44.0); MEAN CORPUSCULAR HEMOGLOBIN 30.2 pg (27.0-33.0); MEAN CORPUSCULAR HGB CONC 32.3 g/dl (32.0-36.5); MEAN CORPUSCULAR VOLUME 93.5 fl (80.0-96.0); MONO # 1.1 10^3/uL (0.0-0.8); MONO % 2.9 % (2.0-8.0); NEUTROPHILS # 33.6 10^3/uL (1.5-8.5); NEUTROPHILS % 93.4 % (36.0-66.0); PLATELET COUNT, AUTOMATED 226 10^3/uL (150-450); RED BLOOD COUNT 2.75 10^6/uL (4.00-5.40)
[2023-05-31 07:03] LABS: ALBUMIN 2.1 G/DL (3.2-5.2); ALKALINE PHOSPHATASE 258 U/L (46-116); ALT/SGPT 133 U/L (7.0-40); AST/SGOT 61 U/L (<34); BILIRUBIN,TOTAL 0.3 MG/DL (0.3-1.2); BLOOD UREA NITROGEN 45 MG/DL (9-23); CALCIUM LEVEL 8.1 MG/DL (8.3-10.6); CHLORIDE LEVEL 102 MMOL/L (98-107); CREATININE FOR GFR 0.49 MG/DL (0.55-1.30); GLOMERULAR FILTRATION RATE > 60.0 (>32); GLUCOSE, FASTING 154 MG/DL (74-106); MAGNESIUM LEVEL 1.8 MG/DL (1.8-2.4); POTASSIUM SERUM 5.2 MMOL/L (3.5-5.1); SODIUM LEVEL 136 MMOL/L (136-145); TOTAL PROTEIN 4.7 G/DL (5.7-8.2)
[2023-05-31] MEDS ORDERED: PATIROMER SORBITEX CALCIUM 8.4 GM POWDER PACKET (VELTASSA) PO ONE (07:10)
[2023-05-31 07:29] LABS: CARBON DIOXIDE LEVEL 27 MMOL/L (20-31)
[2023-05-31] MEDS: APIXABAN 5 MG TAB (ELIQUIS) PO SCH ×2 (08:19→20:29)
[2023-05-31] MEDS: LOPERAMIDE 2 MG CAPLET PO SCH ×5 (08:19→21:45)
[2023-05-31] MEDS: amLODIPine 5 MG TAB PO SCH (08:19)
[2023-05-31] MEDS: FLUoxetine 10 MG CAP PO SCH (08:19)
[2023-05-31] MEDS: LACTOBACILLUS ACIDOPHILUS CAP (BACID) PO SCH ×3 (08:19→18:00)
[2023-05-31] MEDS: TRIPLE PASTE 2OZ OINTMENT TOP SCH ×3 (08:20→20:30)
[2023-05-31] MEDS: ATOVAQUONE SUSP 750MG/5ML 210 ML BTL PO SCH ×2 (08:20→08:51)
[2023-05-31] MEDS: predniSONE 20 MG TAB PO SCH (08:20)
[2023-05-31] MEDS: METOPROLOL SUCC *XL* 25MG TAB (TopROL *XL*) PO SCH (08:20)
[2023-05-31] MEDS ORDERED: amLODIPine 5 MG TAB PO ONE (10:05)
[2023-05-31 10:31] LABS: THYROID STIMULATING HORMONE 2.936 uIU/ML (0.55-4.78)
[2023-05-31] MEDS: METAMUCIL (PSYLLIUM) PACKET PO SCH (10:37)
[2023-05-31] MEDS ORDERED: PATIROMER SORBITEX CALCIUM 8.4 GM POWDER PACKET (VELTASSA) PO SCH (12:00)
[2023-05-31 14:08] LABS: ANTI DS-DNA AB Negative (Negative); ANTI JO-1 ANTIBODIES <20 Units (<20); ANTI SCLERODERMA ANTIBODIES <0.2 AI (0.0-0.9); ANTI SMITH(Sm) AB <20 Units (<20); ANTINUCLEAR ANTIBODIES DIRECT Negative (Negative); CYCLIC CITRULLINATED PEPTIDE 4 units (0-19); SJOGREN'S ANTI SS-A <0.2 AI (0.0-0.9); SJOGREN'S ANTI SS-B <0.2 AI (0.0-0.9)
[2023-05-31 18:15] LABS: ABG BASE EXCESS 8.7 (-2.0-2.0); ABG HCO3 32.7 MMOL/L (22.0-26.0); ABG O2 SATURATION 87.7 % (95.0-99.0); ABG PARTIAL PRESSURE CO2 42.8 mmHg (35.0-45.0); ABG STANDARD HCO3 32.3 MMOL/L. (22.0-26.0); ABG pH (ARTERIAL) 7.501 UNITS (7.350-7.450)
[2023-05-31 18:17] LABS: ABG PARTIAL PRESSURE O2 48.5 mmHg (75.0-100.0)
[2023-05-31] MEDS ORDERED: FUROSEMIDE 40MG/4ML VIAL IV ONE (20:00)
[2023-06-01] VITALS (7 sets, daily range): BP systolic 144–157; BP diastolic 63–67; TEMP 96.7–97.2; O2SAT 85–98
[2023-06-01] MEDS: ONDANSETRON 4MG 2ML VIAL IV PRN (02:49)
[2023-06-01] MEDS ORDERED: PANTOPRAZOLE 40MG VIAL IV SCH (06:00)
[2023-06-01] MEDS ORDERED: SODIUM CHLORIDE HYPERTONIC 3% 15ML NEB SOL NEB ONE (06:00)
[2023-06-01 06:20] LABS: ALKALINE PHOSPHATASE 219 U/L (46-116); ALT/SGPT 102 U/L (7.0-40); AST/SGOT 31 U/L (<34); BILIRUBIN,TOTAL 0.5 MG/DL (0.3-1.2); BLOOD UREA NITROGEN 59 MG/DL (9-23); CALCIUM LEVEL 9.8 MG/DL (8.3-10.6); CARBON DIOXIDE LEVEL 32 MMOL/L (20-31); CHLORIDE LEVEL 98 MMOL/L (98-107); CREATININE FOR GFR 0.79 MG/DL (0.55-1.30); GLOMERULAR FILTRATION RATE > 60.0 (>32); GLUCOSE, FASTING 184 MG/DL (74-106); POTASSIUM SERUM 5.2 MMOL/L (3.5-5.1); SODIUM LEVEL 133 MMOL/L (136-145); TOTAL PROTEIN 4.7 G/DL (5.7-8.2)
[2023-06-01] MEDS: LOPERAMIDE 2 MG CAPLET PO SCH (06:23)
[2023-06-01] MEDS: SODIUM CHLORIDE 0.9% INJ 10 ML SYR IV SCH (06:24)
[2023-06-01] MEDS: LACTOBACILLUS ACIDOPHILUS CAP (BACID) PO SCH (08:00)
[2023-06-01 08:12] LABS: ABG BASE EXCESS 3.2 (-2.0-2.0); ABG HCO3 28.9 MMOL/L (22.0-26.0); ABG O2 SATURATION 75.3 % (95.0-99.0); ABG PARTIAL PRESSURE CO2 50.2 mmHg (35.0-45.0); ABG TOTAL CO2 30.4 MMOL/L (23.0-31.0); ABG pH (ARTERIAL) 7.378 UNITS (7.350-7.450)
[2023-06-01] MEDS: METOPROLOL SUCC *XL* 25MG TAB (TopROL *XL*) PO SCH (09:00)
[2023-06-01] MEDS: TRIPLE PASTE 2OZ OINTMENT TOP SCH ×3 (09:00→21:00)
[2023-06-01] MEDS: METAMUCIL (PSYLLIUM) PACKET PO SCH (09:00)
[2023-06-01] MEDS: FLUoxetine 10 MG CAP PO SCH (09:00)
[2023-06-01] MEDS: predniSONE 20 MG TAB PO SCH (09:00)
[2023-06-01] MEDS: ATOVAQUONE SUSP 750MG/5ML 210 ML BTL PO SCH (09:00)
[2023-06-01 09:58] LABS: HEMATOCRIT 25.2 % (36.0-47.0); HEMOGLOBIN 8.4 g/dl (12.0-15.5); MEAN CORPUSCULAR HEMOGLOBIN 31.1 pg (27.0-33.0); MEAN CORPUSCULAR HGB CONC 33.3 g/dl (32.0-36.5); MEAN CORPUSCULAR VOLUME 93.3 fl (80.0-96.0); PLATELET COUNT, AUTOMATED 227 10^3/uL (150-450)
[2023-06-01 09:59] LABS: WHITE BLOOD COUNT 35.9 10^3/uL (4.0-10.0)
[2023-06-01 10:12] LABS: INR 1.79; PROTHROMBIN TIME 20.3 SECONDS (12.5-14.5)
[2023-06-01 10:56] LABS: LYMPHOCYTES 3 % (16-44); MONOCYTES 2 % (0-5); NEUTROPHILS 93 % (28-66); PLATELET ESTIMATE NORMAL (NORMAL)
[2023-06-01 10:57] LABS: OVALOCYTES 1+
[2023-06-01] MEDS ORDERED: HYOSCYAMINE SULFATE 0.125 MG SUBL TABLET PO PRN (12:40)
[2023-06-01] MEDS ORDERED: LOPERAMIDE 2 MG CAPLET PO PRN (12:45)
[2023-06-01] MEDS ORDERED: ONDANSETRON 4MG TAB PO PRN (12:45)
[2023-06-02] MEDS: SODIUM CHLORIDE 0.9% INJ 10 ML SYR IV SCH ×2 (06:00→17:43)
[2023-06-02] MEDS: SCOPOLAMINE 1MG TRANSDERMAL PATCH TOP PRN (08:34)
[2023-06-02] MEDS: TRIPLE PASTE 2OZ OINTMENT TOP SCH ×3 (08:35→21:00)
[2023-06-02] MEDS: FLUoxetine 10 MG CAP PO SCH (08:37)
[2023-06-02 15:16] LABS: HISTOPLASMA GAL'MANNAN AG UR <0.5 (<0.5 ng/mL)
[2023-06-03] MEDS: SODIUM CHLORIDE 0.9% INJ 10 ML SYR IV SCH ×2 (05:37→18:54)
[2023-06-03] MEDS: TRIPLE PASTE 2OZ OINTMENT TOP SCH ×3 (09:00→21:00)
[2023-06-03] MEDS: FLUoxetine 10 MG CAP PO SCH (09:38)
[2023-06-04] MEDS: SODIUM CHLORIDE 0.9% INJ 10 ML SYR IV PRN (05:47)
[2023-06-04] MEDS: SODIUM CHLORIDE 0.9% INJ 10 ML SYR IV SCH ×2 (05:47→17:44)
[2023-06-04] MEDS: TRIPLE PASTE 2OZ OINTMENT TOP SCH ×3 (08:16→21:18)
[2023-06-04] MEDS: FLUoxetine 10 MG CAP PO SCH (08:16)
[2023-06-04] MEDS ORDERED: QUEtiapine FUMARATE 25 MG TAB PO ONE (22:45)
[2023-06-05] MEDS: MORPHINE 10MG/0.5ML ORAL CONCENTRATE SOLUTION U/D SL PRN ×4 (02:27→21:17)
[2023-06-05] MEDS: LORazepam 1 MG TAB PO PRN ×2 (03:02→14:59)
[2023-06-05] MEDS: SODIUM CHLORIDE 0.9% INJ 10 ML SYR IV SCH ×2 (05:27→18:22)
[2023-06-05] MEDS: SODIUM CHLORIDE 0.9% INJ 10 ML SYR IV PRN ×2 (05:27→18:21)
[2023-06-05] MEDS: TRIPLE PASTE 2OZ OINTMENT TOP SCH ×3 (09:00→21:18)
[2023-06-05] MEDS: FLUoxetine 10 MG CAP PO SCH (09:00)
[2023-06-05] MEDS: SCOPOLAMINE 1MG TRANSDERMAL PATCH TOP PRN (12:16)
[2023-06-06] MEDS: MORPHINE 10MG/0.5ML ORAL CONCENTRATE SOLUTION U/D SL PRN ×2 (05:24→21:52)
[2023-06-06] MEDS: SODIUM CHLORIDE 0.9% INJ 10 ML SYR IV SCH ×2 (05:24→18:34)
[2023-06-06] MEDS: LORazepam 1 MG TAB PO PRN (08:28)
[2023-06-06] MEDS: FLUoxetine 10 MG CAP PO SCH (08:28)
[2023-06-06] MEDS: TRIPLE PASTE 2OZ OINTMENT TOP SCH ×3 (08:28→21:53)
[2023-06-07] MEDS: LORazepam 1 MG TAB PO PRN (01:22)
[2023-06-07] MEDS: SODIUM CHLORIDE 0.9% INJ 10 ML SYR IV SCH ×2 (06:00→18:14)
[2023-06-07] MEDS: FLUoxetine 10 MG CAP PO SCH (09:46)
[2023-06-07] MEDS: TRIPLE PASTE 2OZ OINTMENT TOP SCH ×3 (09:47→21:00)
[2023-06-07] MEDS: MORPHINE 10MG/0.5ML ORAL CONCENTRATE SOLUTION U/D SL PRN (21:36)
[2023-06-08] MEDS: SODIUM CHLORIDE 0.9% INJ 10 ML SYR IV SCH (06:08)
[2023-06-08] MEDS: TRIPLE PASTE 2OZ OINTMENT TOP SCH (09:00)
[2023-06-08] MEDS: FLUoxetine 10 MG CAP PO SCH (09:00)
== END 2023-06-08 13:00 | disposition expired | DRG 177 ==
LOC: M ED 09:00 → EDBD 09:00 → M ED INP 09:01 → OBSVTOIN 17:04 → M PCU 20:55 → M MS5PR 06-02 10:22
PROVIDERS: ADMIT Internal Medicine; ATTEND Internal Medicine
PROC: B246ZZZ Ultrasonography of Right and Left Heart (ICD-10-PCS; principal; 2023-05-10)
PROC: 05HB33Z Insertion of Infusion Device into Right Basilic Vein, Percutaneous Approach (ICD-10-PCS; 2023-05-23)
DX: J15.5 Pneumonia due to Escherichia coli (principal); J96.01 Acute respiratory failure with hypoxia; I16.9 Hypertensive crisis, unspecified; B37.0 Candidal stomatitis; I50.32 Chronic diastolic (congestive) heart failure; J98.11 Atelectasis; T82.818A Embolism due to vascular prosthetic devices, implants and grafts, initial encounter; I82.A12 Acute embolism and thrombosis of left axillary vein; I82.C12 Acute embolism and thrombosis of left internal jugular vein; I82.B12 Acute embolism and thrombosis of left subclavian vein; I82.612 Acute embolism and thrombosis of superficial veins of left upper extremity; B49 Unspecified mycosis; J84.9 Interstitial pulmonary disease, unspecified; K62.5 Hemorrhage of anus and rectum; G62.81 Critical illness polyneuropathy; K52.1 Toxic gastroenteritis and colitis; I11.0 Hypertensive heart disease with heart failure; H81.10 Benign paroxysmal vertigo, unspecified ear; R55 Syncope and collapse; F32.A Depression, unspecified; D64.9 Anemia, unspecified; R68.0 Hypothermia, not associated with low environmental temperature; E83.42 Hypomagnesemia; I49.5 Sick sinus syndrome; R33.9 Retention of urine, unspecified; J16.8 Pneumonia due to other specified infectious organisms; L89.151 Pressure ulcer of sacral region, stage 1; E87.5 Hyperkalemia; K76.0 Fatty (change of) liver, not elsewhere classified; R74.01 Elevation of levels of liver transaminase levels; I27.20 Pulmonary hypertension, unspecified; Z66 Do not resuscitate; Z51.5 Encounter for palliative care; T36.0X5A Adverse effect of penicillins, initial encounter; Y83.1 Surgical operation with implant of artificial internal device as the cause of abnormal reaction of the patient, or of later complication, without mention of misadventure at the time of the procedure; Z95.0 Presence of cardiac pacemaker; Z90.49 Acquired absence of other specified parts of digestive tract; Z98.42 Cataract extraction status, left eye; Z87.891 Personal history of nicotine dependence; Z79.899 Other long term (current) drug therapy; Z98.41 Cataract extraction status, right eye; Z85.038 Personal history of other malignant neoplasm of large intestine; Z88.8 Allergy status to other drugs, medicaments and biological substances; Z88.1 Allergy status to other antibiotic agents; Z91.018 Allergy to other foods